=== PATIENT | female | born 1960 | race Caucasian/White ===

== ENCOUNTER → 2017-03-06 | Outpatient (CLI) | payer BC ==
--- NOTE | 2017-03-09 13:10 | MM ---
Reason for exam: screening (asymptomatic). Last mammogram was performed 1 year ago. History: Patient is postmenopausal. Stereotactic core biopsy of the left breast, August 31, 2000. Physical Findings: A clinical breast exam by your physician is recommended on an annual basis and results should be correlated with mammographic findings. MG Screening Mammo w CAD Bilateral CC and MLO view(s) were taken. Prior study comparison: March 07, 2016, bilateral MG screening mammo w CAD. March 02, 2015, bilateral MG screening mammo w CAD. November 11, 2012, bilateral digital screening mammo w/CAD. There are scattered fibroglandular densities. No significant changes when compared with prior studies. ASSESSMENT: Benign, BI-RAD 2 RECOMMENDATION: Routine screening mammogram of both breasts in 1 year.
== END | disposition home or self-care (01) ==
LOC: RADMAMWWP 10:46
PROVIDERS: ATTEND Family Medicine
DX: Z12.31 Encounter for screening mammogram for malignant neoplasm of breast (principal)

== ENCOUNTER → 2018-05-24 | Outpatient (CLI) | payer BC ==
--- NOTE | 2018-05-26 10:50 | MM ---
Reason for exam: screening (asymptomatic). Last mammogram was performed 1 year and 3 months ago. History: Patient is postmenopausal. Stereotactic core biopsy of the left breast, August 31, 2000. Physical Findings: A clinical breast exam by your physician is recommended on an annual basis and results should be correlated with mammographic findings. MG Screening Mammo w CAD Bilateral CC and MLO view(s) were taken. Prior study comparison: March 06, 2017, bilateral MG screening mammo w CAD. March 07, 2016, bilateral MG screening mammo w CAD. The breast tissue is heterogeneously dense. This may lower the sensitivity of mammography. Left biopsy marker noted. ASSESSMENT: Negative, BI-RAD 1 RECOMMENDATION: Routine screening mammogram of both breasts in 1 year.
== END | disposition home or self-care (01) ==
LOC: RADMAMWWP 15:05
PROVIDERS: ATTEND Family Medicine
DX: Z12.31 Encounter for screening mammogram for malignant neoplasm of breast (principal)
CPT/HCPCS: 77067

== ENCOUNTER 2018-09-05 08:11 | Emergency (ER) | payer BC ==
--- NOTE | 2018-09-05 08:42 | ED ---
Recheck HPI - General Chief Complaint: Recheck/Abnormal Lab/Rx Stated Complaint: lt side jaw swelling Time Seen by Provider: 09/05/18 08:23 Source: patient, RN notes reviewed Mode of arrival: ambulatory Limitations: no limitations - History of Present Illness Initial Comments: Patient is a 58-year-old female with chief complaint of left jaw swelling. Patient reports that she has no pain. She denies any trouble breathing. She denies any swelling to her lips or tongue. Patient reports that it occurred when she was eating breakfast and started to notice that the left side of her jaw into her ear was swollen. She reports this never happened before. Patient denies fevers or chills. She denies any purulent saliva or drainage. Patient states that she's had no recent viral infections. She states that she has no history of high blood pressure. She describes emergency department quite hypertensive. She states she just felt anxious at that time. - Related Data Home Medications Medication Instructions Recorded Confirmed Simvastatin [Zocor] 20 mg PO HS 03/07/15 03/09/15 metFORMIN HCL [Glucophage] 500 mg PO BID 03/07/15 03/09/15 Previous Rx's Medication Instructions Recorded Amoxic-Pot Clav 875-125Mg 1 tab PO Q12HR #20 tablet 09/05/18 [Augmentin 875-125] methylPREDNISolone Dose Pack 4 mg PO DIRECTED #21 package 09/05/18 [Medrol Dose Pack] Allergies Allergy/AdvReac Type Severity Reaction Status Date / Time No Known Allergies Allergy Verified 09/05/18 08:14 Review of Systems ROS Statement: Those systems with pertinent positive or pertinent negative responses have been documented in the HPI. ROS Other: All systems not noted in ROS Statement are negative. Past Medical History Past Medical History: Diabetes Mellitus, Hyperlipidemia Additional Past Medical History / Comment(s): PT STATES THAT SHE HAS BEEN EPIGASTRIC PAIN OFF AND ON FOR ABOUT 8 MONTHS. History of Any Multi-Drug Resistant Organisms: None Reported Past Surgical History: Hysterectomy Additional Past Surgical History / Comment(s): EGD. ORAL CYST REMOVED Past Anesthesia/Blood Transfusion Reactions: No Reported Reaction Past Psychological History: No Psychological Hx Reported Smoking Status: Current every day smoker Past Alcohol Use History: None Reported - Past Family History Mother Family Medical History: Cancer Brother(s) Family Medical History: Cancer Sister(s) Family Medical History: Cancer General Exam - General Exam Comments Initial Comments: 58-year-old female. Alert and oriented 3. Patient appears in no acute distress. Limitations: no limitations General appearance: alert, in no apparent distress Head exam: Present: atraumatic, normocephalic, normal inspection Eye exam: Present: normal appearance, PERRL, EOMI. Absent: scleral icterus, conjunctival injection, periorbital swelling ENT exam: Present: normal exam, normal oropharynx, mucous membranes moist, other (Patient is tender and swollen over the left parotid gland.) Neck exam: Present: normal inspection. Absent: tenderness, meningismus, lymphadenopathy Respiratory exam: Present: normal lung sounds bilaterally Cardiovascular Exam: Present: regular rate, normal rhythm, normal heart sounds. Absent: systolic murmur, diastolic murmur, rubs, gallop, clicks GI/Abdominal exam: Present: soft, normal bowel sounds. Absent: distended, tenderness, guarding, rebound, rigid Extremities exam: Present: normal inspection, full ROM, normal capillary refill. Absent: tenderness, pedal edema, joint swelling, calf tenderness Back exam: Present: normal inspection Neurological exam: Present: alert, oriented X3, CN II-XII intact Psychiatric exam: Present: normal affect, normal mood Course Vital Signs 09/05/18 09/05/18 09/05/18 08:13 09:02 09:29 Temperature 98.1 F Pulse Rate 85 74 64 Respiratory 18 18 18 Rate Blood Pressure 209/97 195/86 174/79 O2 Sat by Pulse 98 98 99 Oximetry 09/05/18 12:14 Temperature 98.6 F Pulse Rate 60 Respiratory 16 Rate Blood Pressure 197/78 O2 Sat by Pulse 100 Oximetry Medical Decision Making - Medical Decision Making Patient is a 58-year-old female who presents today with acute swelling over the left parotid gland. No palpable stone or duct within the Stensen's duct. Patient has no fever. Patient's blood pressure is elevated. She states that she has no pain at this time. Patient's CT did show evidence of enlarged bilateral parotid ducts. No significant stone appreciated. I do feel like I can see one stone on the left side. Patient's labwork obtained. Normal white blood cell count. She does have a significant amylase elevation consistent with. Clay. Patient's case discussed with Dr. Lees who recommended putting the Patient on Augmentin and steroids. He will follow up with her out patiently in the office. In the meantime Patient should have frequent sialagogues. Patient understands treatment plan will comply. Return parameters were discussed. - Lab Data Result diagrams: 09/05/18 10:40 09/05/18 10:40 Lab Results 09/05/18 09/05/18 Range/Units 10:40 10:40 WBC 7.5 (3.8-10.6) k/uL RBC 5.15 (3.80-5.40) m/uL Hgb 14.3 (11.4-16.0) gm/dL Hct 44.4 (34.0-46.0) % MCV 86.2 (80.0-100.0) fL MCH 27.8 (25.0-35.0) pg MCHC 32.3 (31.0-37.0) g/dL RDW 13.2 (11.5-15.5) % Plt Count 235 (150-450) k/uL Neutrophils % 77 % Lymphocytes % 15 % Monocytes % 6 % Eosinophils % 1 % Basophils % 0 % Neutrophils # 5.8 (1.3-7.7) k/uL Lymphocytes # 1.2 (1.0-4.8) k/uL Monocytes # 0.4 (0-1.0) k/uL Eosinophils # 0.1 (0-0.7) k/uL Basophils # 0.0 (0-0.2) k/uL Sodium 140 (137-145) mmol/L Potassium 4.3 (3.5-5.1) mmol/L Chloride 105 (98-107) mmol/L Carbon Dioxide 28 (22-30) mmol/L Anion Gap 7 mmol/L BUN 14 (7-17) mg/dL Creatinine 0.57 (0.52-1.04) mg/dL Est GFR (CKD-EPI)AfAm >90 (>60 ml/min/1.73 sqM) Est GFR (CKD-EPI)NonAf >90 (>60 ml/min/1.73 sqM) Glucose 200 H (74-99) mg/dL Calcium 9.6 (8.4-10.2) mg/dL Amylase 874 H* (30-110) U/L Lipase 36 (23-300) U/L - Radiology Data Radiology results: report reviewed Enlargement of the left parotid gland and possibly of the right parotid gland. Please correlate for mumps. Chronic sinus mucosal disease. Disposition Clinical Impression: Parotitis Disposition: HOME SELF-CARE Condition: Good Instructions: Sialoadenitis (ED) Additional Instructions: Patient advised to follow-up with Dr. Lees tomorrow. Patient should be sucking on throat lozenges. Taken to increase saliva production. Return to emergency department if any alarming signs or symptoms occur. Prescriptions: Amoxic-Pot Clav 875-125Mg [Augmentin 875-125] 1 tab PO Q12HR #20 tablet methylPREDNISolone Dose Pack [Medrol Dose Pack] 4 mg PO DIRECTED #21 package Is patient prescribed a controlled substance at d/c from ED?: No Referrals: Freddie Parks DO [Primary Care Provider] - 1-2 days Abdulaziz Hardin DO [Doctor of Osteopathic Medicine] - 1-2 days Time of Disposition: 11:54
--- NOTE | 2018-09-05 09:21 | CT ---
EXAMINATION TYPE: CT facial bones wo con DATE OF EXAM: 09/05/2018 COMPARISON: None. HISTORY: Lt side jaw swelling CT DLP: 351.2 mGycm Automated exposure control for dose reduction was used. TECHNIQUE: CT scan of the sinuses is performed without contrast, axial images are obtained, coronal r eformatted images are also reviewed. FINDINGS: There is enlargement of the left parotid gland. There is no significant subcutaneous fat st randing adjacent to the parotid gland. The right parotid gland may also be slightly swollen. The subm andibular glands are unremarkable. The parapharyngeal, oropharyngeal and laryngeal soft tissues are normal. There is a 1 cm retention cyst or polyp involving the right maxillary sinus. There is mild mucosal th ickening involving the left maxillary sinus. The remainder the paranasal sinuses and mastoids are soraya ar. Both zygomatic arches are intact. The pterygoid plates are intact. The schultz of the orbits and maxill josefina sinus sinuses are intact. The mandible has a normal appearance. IMPRESSION: 1. ENLARGEMENT OF THE LEFT PAROTID GLAND AND POSSIBLY OF THE RIGHT PAROTID GLAND. PLEASE CORRELATE FO R MONTHS. 2. CHRONIC SINUS MUCOSAL DISEASE.
[2018-09-05 10:54] LABS: Basophils % (A) 0 %; Eosinophils # (A) 0.1 k/uL (0-0.7); Eosinophils % (A) 1 %; HCT 44.4 % (34.0-46.0); HGB 14.3 gm/dL (11.4-16.0); Lymphocytes # (A) 1.2 k/uL (1.0-4.8); Lymphocytes % (A) 15 %; MCH 27.8 pg (25.0-35.0); MCHC 32.3 g/dL (31.0-37.0); MCV 86.2 fL (80.0-100.0); Mean Platelet Volume 6.6; Monocytes # (A) 0.4 k/uL (0-1.0); Monocytes % (A) 6 %; Neutrophils # (A) 5.8 k/uL (1.3-7.7); Neutrophils % (A) 77 %; Platelet Count 235 k/uL (150-450); RBC 5.15 m/uL (3.80-5.40); RDW 13.2 % (11.5-15.5); WBC 7.5 k/uL (3.8-10.6)
[2018-09-05 11:07] LABS: Anion Gap 7 mmol/L; Blood Urea Nitrogen 14 mg/dL (7-17); Calcium 9.6 mg/dL (8.4-10.2); Carbon Dioxide 28 mmol/L (22-30); Chloride 105 mmol/L (98-107); Glucose 200 mg/dL (74-99); Lipase 36 U/L (23-300); Potassium 4.3 mmol/L (3.5-5.1); Sodium 140 mmol/L (137-145)
[2018-09-05 11:24] LABS: Amylase 874 U/L (30-110)
[2018-09-05] MEDS ORDERED: predniSONE 50 MG TAB PO STA (11:53)
[2018-09-05] MEDS ORDERED: AMOXIC-POT CLAV 875MG STARTER 2 EACH TABLET PO STA (11:53)
[2018-09-05 12:16] VITALS: BP 197/78; PULSE 60; RESP 16; TEMP 98.6
== END 2018-09-05 12:14 | disposition home or self-care (01) ==
LOC: EC 08:11
DX: K11.20 Sialoadenitis, unspecified (principal); R03.0 Elevated blood-pressure reading, without diagnosis of hypertension; E11.9 Type 2 diabetes mellitus without complications; E78.5 Hyperlipidemia, unspecified; F17.200 Nicotine dependence, unspecified, uncomplicated; Z98.890 Other specified postprocedural states; Z79.84 Long term (current) use of oral hypoglycemic drugs; Z79.899 Other long term (current) drug therapy
CPT/HCPCS: 99284; 36415; 80048; 82150; 83690; 85025; 70486; J7512

== ENCOUNTER → 2019-06-27 | Outpatient (CLI) | payer BC ==
--- NOTE | 2019-06-28 13:57 | MM ---
Reason for exam: screening (asymptomatic). Last mammogram was performed 1 year and 1 month ago. History: Patient is postmenopausal. Stereotactic core biopsy of the left breast, August 31, 2000. Took hormonal contraceptives for 5 years. Physical Findings: A clinical breast exam by your physician is recommended on an annual basis and results should be correlated with mammographic findings. MG Screening Mammo w CAD Bilateral CC and MLO view(s) were taken. Prior study comparison: May 24, 2018, bilateral MG screening mammo w CAD. March 06, 2017, bilateral MG screening mammo w CAD. The breast tissue is heterogeneously dense. This may lower the sensitivity of mammography. Previous mammotome biopsy on left breast. No discrete abnormality. ASSESSMENT: Negative, BI-RAD 1 RECOMMENDATION: Routine screening mammogram of both breasts in 1 year.
== END | disposition home or self-care (01) ==
LOC: RADMAMWWP 14:54
PROVIDERS: ATTEND Family Medicine
DX: Z12.31 Encounter for screening mammogram for malignant neoplasm of breast (principal)
CPT/HCPCS: 77067

== ENCOUNTER 2019-12-27 20:38 | Emergency (ER) | payer BC ==
[2019-12-27 20:54] VITALS: RESP 18; TEMP 98.3
[2019-12-27] MEDS ORDERED: SODIUM CHLORIDE 0.9% 1,000 ML IV STA (21:01)
[2019-12-27] MEDS ORDERED: LABETALOL 5 MG/ML VIAL MDV IVP STA (21:01)
--- NOTE | 2019-12-27 21:01 | ED ---
Recheck HPI - General Chief Complaint: Recheck/Abnormal Lab/Rx Stated Complaint: elevated BP Time Seen by Provider: 12/27/19 20:48 Source: patient, RN notes reviewed, old records reviewed Mode of arrival: ambulatory Limitations: no limitations - History of Present Illness Complaint: other -: unknown Returns Today for: other Symptoms Since Prior Visit: no new symptoms Context: planned re-check Associated Symptoms: none - Related Data Home Medications Medication Instructions Recorded Confirmed Simvastatin [Zocor] 20 mg PO HS 03/07/15 03/09/15 metFORMIN HCL [Glucophage] 500 mg PO BID 03/07/15 03/09/15 Previous Rx's Medication Instructions Recorded Amoxic-Pot Clav 875-125Mg 1 tab PO Q12HR #20 tablet 09/05/18 [Augmentin 875-125] methylPREDNISolone Dose Pack 4 mg PO DIRECTED #21 package 09/05/18 [Medrol Dose Pack] Allergies Allergy/AdvReac Type Severity Reaction Status Date / Time No Known Allergies Allergy Verified 12/27/19 20:55 Review of Systems ROS Statement: Those systems with pertinent positive or pertinent negative responses have been documented in the HPI. ROS Other: All systems not noted in ROS Statement are negative. Past Medical History Past Medical History: Diabetes Mellitus, Hyperlipidemia Additional Past Medical History / Comment(s): PT STATES THAT SHE HAS BEEN EPIGASTRIC PAIN OFF AND ON FOR ABOUT 8 MONTHS. History of Any Multi-Drug Resistant Organisms: None Reported Past Surgical History: Hysterectomy Additional Past Surgical History / Comment(s): EGD. ORAL CYST REMOVED Past Anesthesia/Blood Transfusion Reactions: No Reported Reaction Past Psychological History: No Psychological Hx Reported Smoking Status: Current every day smoker Past Alcohol Use History: None Reported Past Drug Use History: None Reported - Past Family History Mother Family Medical History: Cancer Brother(s) Family Medical History: Cancer Sister(s) Family Medical History: Cancer General Exam Limitations: no limitations General appearance: alert, in no apparent distress Head exam: Present: atraumatic, normocephalic, normal inspection Eye exam: Present: normal appearance, PERRL, EOMI. Absent: scleral icterus, conjunctival injection, periorbital swelling ENT exam: Present: normal exam, mucous membranes moist Neck exam: Present: normal inspection. Absent: tenderness, meningismus, lymphadenopathy Respiratory exam: Present: normal lung sounds bilaterally. Absent: respiratory distress, wheezes, rales, rhonchi, stridor Cardiovascular Exam: Present: regular rate, normal rhythm, normal heart sounds. Absent: systolic murmur, diastolic murmur, rubs, gallop, clicks GI/Abdominal exam: Present: soft, normal bowel sounds. Absent: distended, tenderness, guarding, rebound, rigid Extremities exam: Present: normal inspection, full ROM, normal capillary refill. Absent: tenderness, pedal edema, joint swelling, calf tenderness Back exam: Present: normal inspection Neurological exam: Present: alert, oriented X3, CN II-XII intact Psychiatric exam: Present: normal affect, normal mood Skin exam: Present: warm, dry, intact, normal color. Absent: rash Course Vital Signs 12/27/19 12/27/19 12/27/19 20:49 21:40 21:50 Temperature 98.3 F Pulse Rate 79 68 70 Respiratory 18 18 18 Rate Blood Pressure 211/100 192/100 149/103 O2 Sat by Pulse 99 96 97 Oximetry 12/27/19 22:03 Temperature Pulse Rate 66 Respiratory 18 Rate Blood Pressure 149/74 O2 Sat by Pulse 97 Oximetry Medical Decision Making - Lab Data Result diagrams: 12/27/19 21:33 12/27/19 21:33 Lab Results 12/27/19 12/27/19 12/27/19 Range/Units 21:33 21:33 21:33 WBC 6.7 (3.8-10.6) k/uL RBC 5.04 (3.80-5.40) m/uL Hgb 13.9 (11.4-16.0) gm/dL Hct 41.9 (34.0-46.0) % MCV 83.2 (80.0-100.0) fL MCH 27.6 (25.0-35.0) pg MCHC 33.1 (31.0-37.0) g/dL RDW 13.3 (11.5-15.5) % Plt Count 256 (150-450) k/uL Neutrophils % 61 % Lymphocytes % 27 % Monocytes % 6 % Eosinophils % 2 % Basophils % 0 % Neutrophils # 4.1 (1.3-7.7) k/uL Lymphocytes # 1.8 (1.0-4.8) k/uL Monocytes # 0.4 (0-1.0) k/uL Eosinophils # 0.2 (0-0.7) k/uL Basophils # 0.0 (0-0.2) k/uL Sodium 138 (137-145) mmol/L Potassium 3.9 (3.5-5.1) mmol/L Chloride 103 (98-107) mmol/L Carbon Dioxide 29 (22-30) mmol/L Anion Gap 6 mmol/L BUN 15 (7-17) mg/dL Creatinine 0.51 L (0.52-1.04) mg/dL Est GFR (CKD-EPI)AfAm >90 (>60 ml/min/1.73 sqM) Est GFR (CKD-EPI)NonAf >90 (>60 ml/min/1.73 sqM) Glucose 131 H (74-99) mg/dL Calcium 9.5 (8.4-10.2) mg/dL Phosphorus 4.3 (2.5-4.5) mg/dL Magnesium 1.8 (1.6-2.3) mg/dL Total Bilirubin 0.5 (0.2-1.3) mg/dL AST 19 (14-36) U/L ALT 10 (4-34) U/L Alkaline Phosphatase 105 (38-126) U/L Troponin I <0.012 (0.000-0.034) ng/mL Total Protein 7.2 (6.3-8.2) g/dL Albumin 4.5 (3.5-5.0) g/dL - EKG Data -: EKG Interpreted by Me (EKG shows sinus a rate of 71, MT 134, QRS 80, QTC 441) Disposition Clinical Impression: Hypertension Disposition: HOME SELF-CARE Condition: Good Instructions (If sedation given, give patient instructions): Hypertension (ED) Is patient prescribed a controlled substance at d/c from ED?: No Referrals: Freddie Parks DO [Primary Care Provider] - 1-2 days
[2019-12-27 21:46] LABS: Basophils % (A) 0 %; Eosinophils # (A) 0.2 k/uL (0-0.7); Eosinophils % (A) 2 %; HCT 41.9 % (34.0-46.0); HGB 13.9 gm/dL (11.4-16.0); Lymphocytes # (A) 1.8 k/uL (1.0-4.8); Lymphocytes % (A) 27 %; MCH 27.6 pg (25.0-35.0); MCHC 33.1 g/dL (31.0-37.0); MCV 83.2 fL (80.0-100.0); Mean Platelet Volume 7.1; Monocytes # (A) 0.4 k/uL (0-1.0); Monocytes % (A) 6 %; Neutrophils # (A) 4.1 k/uL (1.3-7.7); Neutrophils % (A) 61 %; Platelet Count 256 k/uL (150-450); RBC 5.04 m/uL (3.80-5.40); RDW 13.3 % (11.5-15.5); WBC 6.7 k/uL (3.8-10.6)
[2019-12-27 21:54] LABS: ALT 10 U/L (4-34); AST 19 U/L (14-36); African American GFR (CKD) >90 (>60 ml/min/1.73 sqM); Albumin 4.5 g/dL (3.5-5.0); Alkaline Phosphatase 105 U/L (38-126); Anion Gap 6 mmol/L; Blood Urea Nitrogen 15 mg/dL (7-17); Calcium 9.5 mg/dL (8.4-10.2); Carbon Dioxide 29 mmol/L (22-30); Chloride 103 mmol/L (98-107); Glucose 131 mg/dL (74-99); Magnesium 1.8 mg/dL (1.6-2.3); Non-African American GFR(CKD) >90 (>60 ml/min/1.73 sqM); Phosphorus 4.3 mg/dL (2.5-4.5); Potassium 3.9 mmol/L (3.5-5.1); Sodium 138 mmol/L (137-145); Total Bilirubin 0.5 mg/dL (0.2-1.3); Total Protein 7.2 g/dL (6.3-8.2)
[2019-12-27] MEDS ORDERED: LISINOPRIL 10 MG TAB PO STA (22:23)
[2019-12-27 22:37] VITALS: BP 164/73; PULSE 68
== END 2019-12-27 22:38 | disposition home or self-care (01) ==
LOC: EC 20:38
DX: I10 Essential (primary) hypertension (principal); E11.9 Type 2 diabetes mellitus without complications; E78.5 Hyperlipidemia, unspecified; F17.200 Nicotine dependence, unspecified, uncomplicated; Z79.84 Long term (current) use of oral hypoglycemic drugs; Z79.899 Other long term (current) drug therapy
CPT/HCPCS: 36415; 80053; 83735; 84100; 84443; 84484; 85025; 93005; 96361; 96374; 99284

== ENCOUNTER 2019-12-29 19:33 | Inpatient (IN) | payer BC ==
[2019-12-29] MEDS ORDERED: SODIUM CHLORIDE 0.9% 500 ML 500 ML IV STA (19:54)
--- NOTE | 2019-12-29 19:57 | ED ---
General Adult HPI - General Chief complaint: Chest Pain Stated complaint: chest pain Time Seen by Provider: 12/29/19 19:47 Source: patient Mode of arrival: ambulatory Limitations: no limitations - History of Present Illness Initial comments: Dictation was produced using [employer] dictation software. please excuse any grammatical, word or spelling errors. Chief Complaint: 59-year-old female with past medical history of hypertension diabetes and dyslipidemia presents with chest pain History of Present Illness: 59-year-old female she presents today with chief complaint of chest pain. Patient states that her pain is localized to the clements bsternal area with radiation to the back. She also complained of some mild numbness to the left upper extremity. She states that the pain is sort of dull with radiation to the back. She does report that it feels as though it's going on her left upper extremity. Denies any numbness tingling to her extremities at the moment. Patient is a history of blood pressure she was recently seen in the emergency department for elevated blood pressure. At that time she did not have any pain. She was given prescription for lisinopril and went to fill it. Her first doses today. Denies any shortness of breath. The ROS documented in this emergency department record has been reviewed and confirmed by me. Those systems with pertinent positive or negative responses have been documented in the HPI. All other systems are other negative and/or noncontributory. PHYSICAL EXAM: General Impression: Alert and oriented x3, not in acute distress HEENT: Normocephalic atraumatic, extra-ocular movements intact, pupils equal and reactive to light bilaterally, mucous membranes moist. Cardiovascular: Heart regular rate and rhythm, S1&S2 audible, no murmurs, rubs or gallops Chest: Lungs clear to auscultation bilaterally, no rhonchi, no wheeze, no rales Abdomen: Bowel sounds present, abdomen soft, non-tender, non-distended, no organomegaly Musculoskeletal: Pulses present and equal in all extremities, no peripheral edema Motor: no focal deficits noted Neurological: CN II-XII grossly intact, no focal motor or sensory deficits noted Skin: Intact with no visualized rashes Psych: Normal affect and mood ED course: 59-year-old female with a chief complaint of chest pain. As upon arrival shows blood pressure 207/103. Clinical presentation concerning for acute aortic dissection. Laboratory evaluation obtained. CBC, coag panel, metabolic panel is obtained showing no acute processes. Cardiac enzymes negative. Chest x-ray shows no acute processes. Pending CT thoracic aorta. Patient care sats Dr. Louie for follow-up of thoracic aorta CT and final disposition. EKG interpretation: Ventricular rate 81, normal sinus rhythm,. 126, QRS 84, QTc 441. No [place] prolongation, no QTC prolongation, no ST or T-wave changes noted. EKG compared to December 27 2019 showing no changes. Overall, this EKG is unremarkable - Related Data Home Medications Medication Instructions Recorded Confirmed Simvastatin [Zocor] 20 mg PO HS 03/07/15 03/09/15 metFORMIN HCL [Glucophage] 500 mg PO BID 03/07/15 03/09/15 Previous Rx's Medication Instructions Recorded Amoxic-Pot Clav 875-125Mg 1 tab PO Q12HR #20 tablet 09/05/18 [Augmentin 875-125] methylPREDNISolone Dose Pack 4 mg PO DIRECTED #21 package 09/05/18 [Medrol Dose Pack] Lisinopril [Prinivil] 10 mg PO DAILY #30 tab 12/27/19 Allergies Allergy/AdvReac Type Severity Reaction Status Date / Time No Known Allergies Allergy Verified 12/29/19 19:38 Review of Systems ROS Statement: Those systems with pertinent positive or pertinent negative responses have been documented in the HPI. ROS Other: All systems not noted in ROS Statement are negative. Past Medical History Past Medical History: Diabetes Mellitus, Hyperlipidemia Additional Past Medical History / Comment(s): PT STATES THAT SHE HAS BEEN EPIGASTRIC PAIN OFF AND ON FOR ABOUT 8 MONTHS. History of Any Multi-Drug Resistant Organisms: None Reported Past Surgical History: Hysterectomy Additional Past Surgical History / Comment(s): EGD. ORAL CYST REMOVED Past Anesthesia/Blood Transfusion Reactions: No Reported Reaction Past Psychological History: No Psychological Hx Reported Smoking Status: Current every day smoker Past Alcohol Use History: None Reported Past Drug Use History: None Reported - Past Family History Mother Family Medical History: Cancer Brother(s) Family Medical History: Cancer Sister(s) Family Medical History: Cancer General Exam Limitations: no limitations Course Vital Signs 12/29/19 19:34 Temperature 98.1 F Pulse Rate 86 Respiratory 18 Rate Blood Pressure 207/103 O2 Sat by Pulse 99 Oximetry Medical Decision Making - Lab Data Result diagrams: 12/29/19 19:50 12/29/19 19:50 Lab Results 12/29/19 12/29/19 12/29/19 Range/Units 19:50 19:50 19:50 WBC 6.3 (3.8-10.6) k/uL RBC 4.84 (3.80-5.40) m/uL Hgb 13.4 (11.4-16.0) gm/dL Hct 40.9 (34.0-46.0) % MCV 84.4 (80.0-100.0) fL MCH 27.8 (25.0-35.0) pg MCHC 32.9 (31.0-37.0) g/dL RDW 13.5 (11.5-15.5) % Plt Count 218 (150-450) k/uL Neutrophils % 62 % Lymphocytes % 27 % Monocytes % 7 % Eosinophils % 2 % Basophils % 0 % Neutrophils # 3.9 (1.3-7.7) k/uL Lymphocytes # 1.7 (1.0-4.8) k/uL Monocytes # 0.4 (0-1.0) k/uL Eosinophils # 0.1 (0-0.7) k/uL Basophils # 0.0 (0-0.2) k/uL PT 9.5 (9.0-12.0) sec INR 0.9 (<1.2) APTT 23.7 (22.0-30.0) sec Sodium 140 (137-145) mmol/L Potassium 3.9 (3.5-5.1) mmol/L Chloride 105 (98-107) mmol/L Carbon Dioxide 27 (22-30) mmol/L Anion Gap 8 mmol/L BUN 17 (7-17) mg/dL Creatinine 0.66 (0.52-1.04) mg/dL Est GFR (CKD-EPI)AfAm >90 (>60 ml/min/1.73 sqM) Est GFR (CKD-EPI)NonAf >90 (>60 ml/min/1.73 sqM) Glucose 137 H (74-99) mg/dL Calcium 9.2 (8.4-10.2) mg/dL Magnesium 1.7 (1.6-2.3) mg/dL Total Bilirubin 0.3 (0.2-1.3) mg/dL AST 20 (14-36) U/L ALT 11 (4-34) U/L Alkaline Phosphatase 96 (38-126) U/L Troponin I (0.000-0.034) ng/mL Total Protein 7.1 (6.3-8.2) g/dL Albumin 4.3 (3.5-5.0) g/dL Lipase 211 (23-300) U/L 12/29/19 Range/Units 19:50 WBC (3.8-10.6) k/uL RBC (3.80-5.40) m/uL Hgb (11.4-16.0) gm/dL Hct (34.0-46.0) % MCV (80.0-100.0) fL MCH (25.0-35.0) pg MCHC (31.0-37.0) g/dL RDW (11.5-15.5) % Plt Count (150-450) k/uL Neutrophils % % Lymphocytes % % Monocytes % % Eosinophils % % Basophils % % Neutrophils # (1.3-7.7) k/uL Lymphocytes # (1.0-4.8) k/uL Monocytes # (0-1.0) k/uL Eosinophils # (0-0.7) k/uL Basophils # (0-0.2) k/uL PT (9.0-12.0) sec INR (<1.2) APTT (22.0-30.0) sec Sodium (137-145) mmol/L Potassium (3.5-5.1) mmol/L Chloride (98-107) mmol/L Carbon Dioxide (22-30) mmol/L Anion Gap mmol/L BUN (7-17) mg/dL Creatinine (0.52-1.04) mg/dL Est GFR (CKD-EPI)AfAm (>60 ml/min/1.73 sqM) Est GFR (CKD-EPI)NonAf (>60 ml/min/1.73 sqM) Glucose (74-99) mg/dL Calcium (8.4-10.2) mg/dL Magnesium (1.6-2.3) mg/dL Total Bilirubin (0.2-1.3) mg/dL AST (14-36) U/L ALT (4-34) U/L Alkaline Phosphatase (38-126) U/L Troponin I <0.012 (0.000-0.034) ng/mL Total Protein (6.3-8.2) g/dL Albumin (3.5-5.0) g/dL Lipase (23-300) U/L Disposition Referrals: Freddie Parks DO [Primary Care Provider] - 1-2 days
[2019-12-29 20:05] LABS: Basophils % (A) 0 %; Eosinophils # (A) 0.1 k/uL (0-0.7); Eosinophils % (A) 2 %; HCT 40.9 % (34.0-46.0); HGB 13.4 gm/dL (11.4-16.0); Lymphocytes # (A) 1.7 k/uL (1.0-4.8); Lymphocytes % (A) 27 %; MCH 27.8 pg (25.0-35.0); MCHC 32.9 g/dL (31.0-37.0); MCV 84.4 fL (80.0-100.0); Mean Platelet Volume 7.1; Monocytes # (A) 0.4 k/uL (0-1.0); Monocytes % (A) 7 %; Neutrophils # (A) 3.9 k/uL (1.3-7.7); Neutrophils % (A) 62 %; Platelet Count 218 k/uL (150-450); RBC 4.84 m/uL (3.80-5.40); RDW 13.5 % (11.5-15.5); WBC 6.3 k/uL (3.8-10.6)
[2019-12-29 20:14] LABS: ALT 11 U/L (4-34); AST 20 U/L (14-36); African American GFR (CKD) >90 (>60 ml/min/1.73 sqM); Albumin 4.3 g/dL (3.5-5.0); Alkaline Phosphatase 96 U/L (38-126); Anion Gap 8 mmol/L; Blood Urea Nitrogen 17 mg/dL (7-17); Calcium 9.2 mg/dL (8.4-10.2); Carbon Dioxide 27 mmol/L (22-30); Chloride 105 mmol/L (98-107); Glucose 137 mg/dL (74-99); Magnesium 1.7 mg/dL (1.6-2.3); Non-African American GFR(CKD) >90 (>60 ml/min/1.73 sqM); Potassium 3.9 mmol/L (3.5-5.1); Sodium 140 mmol/L (137-145); Total Bilirubin 0.3 mg/dL (0.2-1.3); Total Protein 7.1 g/dL (6.3-8.2)
[2019-12-29 20:24] LABS: INR 0.9 (<1.2); Partial Thromboplastin Time 23.7 sec (22.0-30.0); Prothrombin Time 9.5 sec (9.0-12.0)
--- NOTE | 2019-12-29 20:58 | XR ---
EXAMINATION TYPE: XR chest 2V DATE OF EXAM: 12/29/2019 COMPARISON: NONE HISTORY: Epigastric pain TECHNIQUE: FINDINGS: Heart and mediastinum are normal. Lungs are clear. Diaphragm is normal. There no hilar mass es. Bony thorax is intact. There are chest leads. IMPRESSION: Normal chest. Normal heart.
[2019-12-29] MEDS ORDERED: LABETALOL 5 MG/ML VIAL MDV IVP STA (21:11)
[2019-12-29] MEDS ORDERED: ASPIRIN 81 MG PO STA (21:11)
--- NOTE | 2019-12-29 21:16 | CT ---
EXAMINATION TYPE: CT angio thor/abd pel aorta DATE OF EXAM: 12/29/2019 COMPARISON: None HISTORY: Upper back pain and hypertension CT DLP: 1571.1 mGycm Automated exposure control for dose reduction was used. CONTRAST: Performed without and with IV Contrast, patient injected with 100 mL of Isovue 370. There are 3-D post processed images. Multiple axial sections were obtained from the thoracic inlet to the floor the pelvis without and subsequently with intravenous contrast. There are 3-D post processe d images. FINDINGS: The lungs are clear of consolidation. There is no pleural effusion. Heart size is normal. There is no pericardial effusion. There is no mediastinal adenopathy. There are no hilar masses. Thoracic aorta is atheromatous. There is no thoracic aortic aneurysm or dissection. I see no filling defects in the pulmonary arterie s. There is patency of the celiac artery and superior mesenteric artery. There is atherosclerotic variab le plaque formation in the abdominal aorta and its branches. There is bilateral arterial flow in the renal arteries. There is arterial flow in the iliac and femoral arteries bilaterally. There are areas of stenosis up to 50% in the left common iliac artery. I see no evidence of abdominal aortic aneurys m or dissection. There is plaque formation and estimated 85% stenosis of the proximal left superficia l femoral artery. There is also significant plaque formation at the origin of the right superficial f emoral artery which is possibly occluded. Liver spleen pancreas gallbladder stomach appear normal. Bile ducts are not dilated. There is no adrenal mass. Kidneys show satisfactory contrast opacification. There is no hydronephrosi s. There is no retroperitoneal adenopathy. Bladder distends smoothly. There is no sign of a pelvic ma ss. There is no mesenteric edema. There is no sign of a bowel obstruction. Appendix appears normal. I see no bony destructive process. There is sigmoid diverticulosis without diverticulitis. IMPRESSION: Atherosclerotic vascular disease. Severe stenosis at the origins of both superficial femoral arteries . Extent of the disease is not evaluated. No evidence of thoracic or abdominal aortic aneurysm or dis section. No evidence of pulmonary embolism. 50% stenosis origin of the left common iliac artery.
[2019-12-29] MEDS ORDERED: NITROGLYCERIN SL TABS 0.4 MG TAB SUBLINGUAL PRN (21:30)
[2019-12-30 03:51] LABS: Cholesterol 133 mg/dL (<200); HDL Cholesterol 49 mg/dL (40-60); LDL Cholesterol,Calculated 70 mg/dL (0-99); Triglycerides 69 mg/dL (<150)
[2019-12-30 06:09] LABS: Glucose,Whole Blood 111 mg/dL (75-99)
--- NOTE | 2019-12-30 08:55 | P.CRDCN ---
History of Present Illness Consult date: 12/30/19 Chief complaint: Chest pain History of present illness: This is a very pleasant 59-year-old female patient with a past medical history significant for diabetes, hypertension, dyslipidemia, and family history of coronary artery disease as well as history of smoking presented to the emergency room complaining of chest discomfort. She was in her usual state of health until yesterday when she was at work and started experiencing pain in the back of her neck associated with the pain over the left upper chest. She describes the pain in the chest as dull, without any radiation to the arms, and without any associated symptoms of shortness of breath, sweating, nausea, or syncope. She continues to be chest pain free since she was admitted to the hospital. No chest pain last night. The EKG showed sinus rhythm without any significant ST or T-wave abnormalities. The cardiac enzymes were checked and came in to be unremarkable with a chest x-ray did not show any acute abnormalities. She underwent a CTA of the chest and abdomen and that revealed evidence of peripheral arterial disease. No aortic dissection or aneurysm. Past Medical History Past Medical History: Diabetes Mellitus, Hyperlipidemia Additional Past Medical History / Comment(s): PT STATES THAT SHE HAS BEEN EPIGASTRIC PAIN OFF AND ON FOR ABOUT 8 MONTHS. History of Any Multi-Drug Resistant Organisms: None Reported Past Surgical History: Hysterectomy Additional Past Surgical History / Comment(s): ID chip in left breast following biopsy. Past Anesthesia/Blood Transfusion Reactions: No Reported Reaction Past Psychological History: No Psychological Hx Reported Smoking Status: Current every day smoker Past Alcohol Use History: None Reported Past Drug Use History: None Reported - Past Family History Father Family Medical History: Myocardial Infarction ([place]), Renal Disease Mother Family Medical History: Cancer Brother(s) Family Medical History: Cancer Sister(s) Family Medical History: Cancer Medications and Allergies Home Medications Medication Instructions Recorded Confirmed Type metFORMIN HCL [Glucophage] 500 mg PO TID 03/07/15 12/29/19 History Lisinopril [Prinivil] 10 mg PO DAILY #30 tab 12/27/19 12/29/19 Rx Omeprazole [PriLOSEC] 40 mg PO HS 12/29/19 12/29/19 History Simvastatin 40 mg PO HS 12/29/19 12/29/19 History Allergies Allergy/AdvReac Type Severity Reaction Status Date / Time No Known Allergies Allergy Verified 12/29/19 21:52 Physical Exam Vitals: Vital Signs Temp Pulse Pulse Resp BP BP BP 12/30/19 07:45 98.4 F 17 186/86 12/30/19 04:00 60 148/75 12/30/19 03:55 60 149/78 12/30/19 03:48 60 14 12/30/19 03:37 97.6 F 60 14 168/76 12/29/19 23:19 69 16 12/29/19 23:16 188/83 12/29/19 23:10 192/82 12/29/19 22:47 97.5 F L 69 16 192/75 12/29/19 22:00 62 16 169/75 12/29/19 21:30 63 18 190/85 12/29/19 21:00 68 18 182/93 12/29/19 20:30 59 L 20 180/87 12/29/19 20:00 70 18 201/102 12/29/19 19:34 98.1 F 86 18 207/103 Pulse Ox 12/30/19 07:45 98 12/30/19 04:00 95 12/30/19 03:55 96 12/30/19 03:48 12/30/19 03:37 12/29/19 23:19 12/29/19 23:16 12/29/19 23:10 12/29/19 22:47 97 12/29/19 22:00 97 12/29/19 21:30 97 12/29/19 21:00 96 12/29/19 20:30 12/29/19 20:00 98 12/29/19 19:34 99 Intake and Output 12/29/19 12/30/19 12/30/19 22:59 06:59 14:59 Intake Total 888 Balance 888 Intake: Oral 888 Other: Voiding Method Toilet # Voids 1 Weight 82.917 kg 81.4 kg - Constitutional General appearance: no acute distress - Respiratory Respiratory: bilateral: CTA - Cardiovascular Rhythm: regular Heart sounds: normal: S1, S2 Results 12/29/19 19:50 12/29/19 19:50 Cardiac Enzymes 12/29/19 12/29/19 12/30/19 Range/Units 19:50 19:50 03:15 AST 20 (14-36) U/L Troponin I <0.012 <0.012 (0.000-0.034) ng/mL 12/30/19 Range/Units 07:27 AST (14-36) U/L Troponin I <0.012 (0.000-0.034) ng/mL Coagulation 12/29/19 Range/Units 19:50 PT 9.5 (9.0-12.0) sec APTT 23.7 (22.0-30.0) sec Lipids 12/30/19 Range/Units 03:15 Triglycerides 69 (<150) mg/dL Cholesterol 133 (<200) mg/dL HDL Cholesterol 49 (40-60) mg/dL CBC 12/29/19 Range/Units 19:50 WBC 6.3 (3.8-10.6) k/uL RBC 4.84 (3.80-5.40) m/uL Hgb 13.4 (11.4-16.0) gm/dL Hct 40.9 (34.0-46.0) % Plt Count 218 (150-450) k/uL Comprehensive Metabolic Panel 12/29/19 Range/Units 19:50 Sodium 140 (137-145) mmol/L Potassium 3.9 (3.5-5.1) mmol/L Chloride 105 (98-107) mmol/L Carbon Dioxide 27 (22-30) mmol/L BUN 17 (7-17) mg/dL Creatinine 0.66 (0.52-1.04) mg/dL Glucose 137 H (74-99) mg/dL Calcium 9.2 (8.4-10.2) mg/dL AST 20 (14-36) U/L ALT 11 (4-34) U/L Alkaline Phosphatase 96 (38-126) U/L Total Protein 7.1 (6.3-8.2) g/dL Albumin 4.3 (3.5-5.0) g/dL Current Medications Generic Name Dose Route Start Last Admin Trade Name Freq PRN Reason Stop Dose Admin Aspirin 325 mg 12/30/19 09:00 Aspirin PO DAILY [facility] Atorvastatin Calcium 10 mg 12/30/19 21:00 Lipitor PO HS [facility] Lisinopril 10 mg 12/30/19 09:00 Zestril PO DAILY [facility] Metformin HCl 500 mg 12/30/19 09:00 Glucophage PO BID [facility] Nitroglycerin 0.4 mg 12/29/19 21:30 12/30/19 03:55 Nitrostat SUBLINGUAL 0.4 mg Q5M PRN Administration Chest Pain Sodium Chloride 10 ml 12/30/19 09:00 Saline Flush IV BID [facility] Intake and Output 12/29/19 12/30/19 12/30/19 22:59 06:59 14:59 Intake Total 888 Balance 888 Intake: Oral 888 Other: Voiding Method Toilet # Voids 1 Weight 82.917 kg 81.4 kg 12/29/19 19:50 12/29/19 19:50 Assessment and Plan Assessment: Assessment #1 chest discomfort which has resolved #2 diabetes type 2 #3 significant history of smoking #4 hypertension #5 dyslipidemia #6 evidence of peripheral arterial disease by CTA Plan #1 acute coronary event was ruled out #2 PE was ruled out as well #3 I am going to schedule the patient to undergo a stress test #4 an echocardiogram was Doppler #5 follow-up with the patient Thank you for allowing us participate in her care
--- NOTE | 2019-12-30 11:01 | ECHOF ---
Referral Reason:CP MEASUREMENTS -------- HEIGHT: 162.6 cm WEIGHT: 81.2 kg BP: 148/75 RVIDd: 3.6 cm (< 3.3) IVSd: 1.6 cm (0.6 - 1.1) LVIDd: 3.5 cm (3.9 - 5.3) LVPWd: 1.9 cm (0.6 - 1.1) IVSs: 2.1 cm LVIDs: 2.2 cm LVPWs: 1.9 cm LAESV Index (A-L): 40.99 ml/m Ao Diam: 2.5 cm (2.0 - 3.7) AV Cusp: 1.6 cm (1.5 - 2.6) MV EXCURSION: 14.414 mm (> 18.000) MV EF SLOPE: 62 mm/s (70 - 150) EPSS: 0.3 cm MV E Peña: 1.05 m/s MV DecT: 238 ms MV A Peña: 0.77 m/s MV E/A Ratio: 1.36 RAP: 15.00 mmHg RVSP: 33.68 mmHg FINDINGS -------- Resting bradycardia (HR<60bpm). This was a technically adequate study. The left ventricular size is normal. There is moderate concentric left ventricular hypertrophy. O verall left ventricular systolic function is normal with, an EF between 55 - 60 %. The diastolic fi lling pattern is normal for the age of the patient 16.56. The right ventricle is mildly enlarged. LA is moderately dilated 34-39 ml/m2 The right atrium is mildly enlarged. Interatrial and interventricular septum intact. There is no evidence of aortic regurgitation. There is no evidence of aortic stenosis. There is trace mitral regurgitation. Mild tricuspid regurgitation present. There is borderline pulmonary artery hypertension. The righ t ventricular systolic pressure, as measured by Doppler, is 33.68mmHg. There is no pulmonic regurgitation present. The aortic root size is normal. The inferior vena cava is mildly dilated. There is no pericardial effusion. CONCLUSIONS -------- 1. Resting bradycardia (HR<60bpm). 2. This was a technically adequate study. 3. The left ventricular size is normal. 4. There is moderate concentric left ventricular hypertrophy. 5. Overall left ventricular systolic function is normal with, an EF between 55 - 60 %. 6. The diastolic filling pattern is normal for the age of the patient 16.56 7. The right ventricle is mildly enlarged. 8. LA is moderately dilated 34-39 ml/m2 9. The right atrium is mildly enlarged. 10. Interatrial and interventricular septum intact. 11. There is no evidence of aortic regurgitation. 12. There is no evidence of aortic stenosis. 13. There is trace mitral regurgitation. 14. Mild tricuspid regurgitation present. 15. There is borderline pulmonary artery hypertension. 16. The right ventricular systolic pressure, as measured by Doppler, is 33.68mmHg. 17. There is no pulmonic regurgitation present. 18. The aortic root size is normal. 19. The inferior vena cava is mildly dilated. 20. There is no pericardial effusion. TOWN ADMINISTRATOR: Mary Wooten RDCS
[2019-12-30] MEDS: metFORMIN 500 MG TAB PO SCH ×2 (11:27→20:04)
[2019-12-30] MEDS: ASPIRIN 325 MG TAB PO SCH (11:27)
[2019-12-30] MEDS: LISINOPRIL 10 MG TAB PO SCH (11:27)
--- NOTE | 2019-12-30 11:51 | NM ---
EXAMINATION TYPE: NM stress cardiolite complete DATE OF EXAM: 12/30/2019 COMPARISON: NONE HISTORY: Chest pain TECHNIQUE: After the intravenous administration of 10.17 mCi Tc 99m Sestamibi - Rest images obtained 90 minutes post injection. The patient exercised using a BRANDO protocol and 1 minute prior to peak exercise was injected with 27.1 mCi Tc 99m Sestamibi - Stress images obtained 10 minutes post inject ion. Patient achieved greater than 85% of predicted maximal heart rate. FINDINGS: Targeted heart rate was achieved during performance of the study. Review of stress and rest SPECT dom ges demonstrates decreased uptake along the cardiac apex on stress greater than rest images, decrease d uptake along the inferior wall left ventricle on both stress and rest images and mild decreased upt khadijah along anterior wall greater on rest than on stress images. There is decreased uptake along the i nferior wall of the left ventricle which is greater on stress than rest images towards the lateral wa ll. Gated analysis shows normal wall motion with an estimated left ventricular ejection fraction of 5 8 %. IMPRESSION: Findings suggest prior infarctions, oleg-infarct stress-induced left ventricular myocardial ischemia
[2019-12-30 12:07] LABS: Glucose,Whole Blood 133 mg/dL (75-99)
--- NOTE | 2019-12-30 13:03 | EST ---
EXERCISE STRESS DATE OF SERVICE: 12/30/2019 AGE: 59 SEX: Female HT: 64" WT: 179 pounds PROTOCOL: Cardiolite Cisco STAGE: III DURATION OF EXERCISE: 8 minutes 22 seconds HEART RATE REST: 57 BLOOD PRESSURE REST: 188/87 MAXIMUM HEART RATE ACHIEVED: 144 MAXIMUM BLOOD PRESSURE: 216/88 85% MPHR: 138 100% MPHR: 162 METS: 9.2 INDICATIONS: Chest pain. CLINICAL INFORMATION: History of chest pain, underlying diabetes, dyslipidemia and hypertension. Baseline heart rate 57 beats per minute. Baseline blood pressure 188/87 mmHg. Baseline 12-lead ECG shows sinus rhythm with normal ST segments. Patient exercised on a Cisco protocol for 8 minutes 22 seconds achieving a peak heart rate of 144 beats per minute, hypertensive response to exercise. Peak blood pressure 216/88 mmHg. There was no ECG evidence for ischemia. Occasional PVCs were noted. No sustained or nonsustained arrhythmias. IMPRESSION: Average exercise capacity. The patient exercised into stage III of the Cisco protocol. No ECG evidence for ischemia. Occasional PVCs. MMODL / IJN: [id number] /
--- NOTE | 2019-12-30 16:07 | P.HPIM ---
History of Present Illness H&P Date: 12/30/19 Chief Complaint: Chest pain This is a 59-year-old female with history of hypertension, diabetes mellitus, hyperlipidemia, ongoing nicotine dependence and multiple other medical issues presented to the ER with complaints of dull substernal chest pain radiating to left shoulder, neck and back, occurring at work. Denies shortness of breath, diaphoresis, nausea, vomiting or diarrhea. Denies syncope. Patient recently seen in ER, on Thursday with hypertension, no chest pain , placed on DASH inhibitor and was discharged home. On admission blood pressure 207/103, CTA thoracic/abdomen /pelvis/ aorta reporting material sclerotic vascular disease, severe stenosis of both superficial femoral arteries, no evidence of thoracic or abdominal aortic aneurysm or dissection ,no PE, 50% stenosis origin of the left common iliac artery. Chest x-ray reporting normal chest. EKG reporting normal sinus rhythm, troponins negative 3. CBC, coagulation, chemistry unremarkable. Patient currently chest pain-free. Review of Systems ROS Statement: Those systems with pertinent positive or pertinent negative responses have been documented in the HPI. ROS Other: All systems not noted in ROS Statement are negative. Past Medical History Past Medical History: Diabetes Mellitus, Hyperlipidemia Additional Past Medical History / Comment(s): PT STATES THAT SHE HAS BEEN EPIGASTRIC PAIN OFF AND ON FOR ABOUT 8 MONTHS. History of Any Multi-Drug Resistant Organisms: None Reported Past Surgical History: Hysterectomy Additional Past Surgical History / Comment(s): ID chip in left breast following biopsy. Past Anesthesia/Blood Transfusion Reactions: No Reported Reaction Past Psychological History: No Psychological Hx Reported Smoking Status: Current every day smoker Past Alcohol Use History: None Reported Past Drug Use History: None Reported - Past Family History Father Family Medical History: Myocardial Infarction ([place]), Renal Disease Mother Family Medical History: Cancer Brother(s) Family Medical History: Cancer Sister(s) Family Medical History: Cancer Medications and Allergies Home Medications Medication Instructions Recorded Confirmed Type metFORMIN HCL [Glucophage] 500 mg PO TID 03/07/15 12/29/19 History Lisinopril [Prinivil] 10 mg PO DAILY #30 tab 12/27/19 12/29/19 Rx Omeprazole [PriLOSEC] 40 mg PO HS 12/29/19 12/29/19 History Simvastatin 40 mg PO HS 12/29/19 12/29/19 History Allergies Allergy/AdvReac Type Severity Reaction Status Date / Time No Known Allergies Allergy Verified 12/29/19 21:52 Physical Exam Vitals: Vital Signs Temp Pulse Pulse Resp BP BP BP 12/30/19 11:33 17 12/30/19 11:20 98.5 F 65 18 164/78 12/30/19 07:45 98.4 F 17 186/86 12/30/19 04:00 60 148/75 12/30/19 03:55 60 149/78 12/30/19 03:48 60 14 12/30/19 03:37 97.6 F 60 14 168/76 12/29/19 23:19 69 16 12/29/19 23:16 188/83 12/29/19 23:10 192/82 12/29/19 22:47 97.5 F L 69 16 192/75 12/29/19 22:00 62 16 169/75 12/29/19 21:30 63 18 190/85 12/29/19 21:00 68 18 182/93 12/29/19 20:30 59 L 20 180/87 12/29/19 20:00 70 18 201/102 12/29/19 19:34 98.1 F 86 18 207/103 Pulse Ox 12/30/19 11:33 12/30/19 11:20 97 12/30/19 07:45 98 12/30/19 04:00 95 12/30/19 03:55 96 12/30/19 03:48 12/30/19 03:37 12/29/19 23:19 12/29/19 23:16 12/29/19 23:10 12/29/19 22:47 97 12/29/19 22:00 97 12/29/19 21:30 97 12/29/19 21:00 96 12/29/19 20:30 12/29/19 20:00 98 12/29/19 19:34 99 Intake and Output 12/29/19 12/30/19 12/30/19 22:59 06:59 14:59 Intake Total 888 Balance 888 Intake: Oral 888 Other: Voiding Method Toilet # Voids 1 Weight 82.917 kg 81.4 kg 81.4 kg PHYSICAL EXAM: VITAL SIGNS: As above GENERAL: Sitting up in chair, no acute distress HEENT: Conjunctivae normal. eyes normal. NECK: No JVD. No thyroid enlargement. No LNs CARDIOVASCULAR: S1, S2 regular.. No murmur RESPIRATION: Breath sounds diminished in the bases. No rhonchi or crackles. No bronchial breathing. ABDOMEN: Soft, nontender . No guarding. no masses palpable. No ascites, No hepatosplenomegaly.Bowel sounds heard. LEGS: No edema. no swelling PSYCHIATRY: Alert and oriented X3, mood and affect normal. NERVOUS SYSTEM: Cranial N 2-12 grossly normal. Moves all 4 limbs. Diffuse weakness No focal deficits. Strength and sensation grossly intact.. Skin: no rash Lymphatic system. No LN neck axilla. Results CBC & Chem 7: 12/29/19 19:50 12/29/19 19:50 Labs: Abnormal Lab Results - Last 24 Hours (Table) 12/29/19 12/30/19 12/30/19 Range/Units 19:50 06:07 11:39 Glucose 137 H (74-99) mg/dL POC Glucose (mg/dL) 111 H 133 H (75-99) mg/dL Thrombosis Risk Factor Assmnt - Choose All That Apply Any of the Below Risk Factors Present?: Yes Each Factor Represents 1 point: Age 41-60 years, Obesity (BMI >25) Thrombosis Risk Factor Assessment Total Risk Factor Score: 2 Thrombosis Risk Factor Assessment Level: Low Risk Assessment and Plan Assessment: Chest pain, rule out acute coronary syndrome Hypertensive urgency Peripheral arterial disease per CTA Diabetes mellitus Hypertension Hyperlipidemia Ongoing nicotine dependence Plan: Continue on current medication regime ,monitoring and symptomatic treatment. Evaluated by cardiology and patient is scheduled for stress test/echo today.antihypertensives as per cardiology.GI and DVT prophylaxis in place.home meds have been reviewed and resumed accordingly.Smoking cessation r einforced. The impression and plan of care has been dictated as directed. : I performed a history and examination of this patient, discussed the same with the dictator. I agree with the dictator's note ,documented as a scribe. Any additional findings or plans will be noted.
[2019-12-30] MEDS ORDERED: PANTOPRAZOLE 40 MG/10 ML VIAL IVP SCH (16:15)
[2019-12-30 17:06] LABS: Glucose,Whole Blood 158 mg/dL (75-99)
[2019-12-30 20:34] LABS: Glucose,Whole Blood 152 mg/dL (75-99)
[2019-12-30] MEDS ORDERED: ATORVASTATIN 10 MG TAB PO SCH (21:00)
[2019-12-31] MEDS: LISINOPRIL 10 MG TAB PO SCH (06:01)
[2019-12-31] MEDS: ASPIRIN 325 MG TAB PO SCH (06:01)
[2019-12-31] MEDS: PANTOPRAZOLE 40 MG/10 ML VIAL IVP SCH (06:01)
[2019-12-31 06:09] LABS: Glucose,Whole Blood 146 mg/dL (75-99)
[2019-12-31 06:24] LABS: Basophils % (A) 0 %; Eosinophils # (A) 0.1 k/uL (0-0.7); Eosinophils % (A) 3 %; HCT 39.3 % (34.0-46.0); HGB 12.5 gm/dL (11.4-16.0); Lymphocytes # (A) 1.3 k/uL (1.0-4.8); Lymphocytes % (A) 24 %; MCH 27.3 pg (25.0-35.0); MCHC 31.8 g/dL (31.0-37.0); MCV 85.9 fL (80.0-100.0); Monocytes # (A) 0.3 k/uL (0-1.0); Monocytes % (A) 6 %; Neutrophils # (A) 3.5 k/uL (1.3-7.7); Neutrophils % (A) 64 %; Platelet Count 239 k/uL (150-450); RBC 4.57 m/uL (3.80-5.40); RDW 13.3 % (11.5-15.5); WBC 5.5 k/uL (3.8-10.6)
[2019-12-31 06:37] LABS: African American GFR (CKD) >90 (>60 ml/min/1.73 sqM); Anion Gap 6 mmol/L; Blood Urea Nitrogen 12 mg/dL (7-17); Calcium 8.9 mg/dL (8.4-10.2); Carbon Dioxide 27 mmol/L (22-30); Chloride 106 mmol/L (98-107); Glucose 147 mg/dL (74-99); Non-African American GFR(CKD) >90 (>60 ml/min/1.73 sqM); Potassium 4.4 mmol/L (3.5-5.1); Sodium 139 mmol/L (137-145)
[2019-12-31] MEDS ORDERED: IV FLUID CONTINUATION 650 ML IV ONE (10:00)
[2019-12-31] MEDS ORDERED: MIDAZOLAM 2 MG/2 ML VIAL IV ONE ×2 (10:15→10:49)
[2019-12-31] MEDS ORDERED: VERAPAMIL 2.5 MG/ML 2 ML AMP ONE (10:16)
[2019-12-31] MEDS ORDERED: LIDOCAINE 1% INJ 10MG/ML (20 ML MDV) SQ ONE (10:18)
[2019-12-31] MEDS ORDERED: VERAPAMIL SYRINGE (5 MG/10 ML) INTRAARTER ONE (10:20)
[2019-12-31] MEDS ORDERED: fentaNYL (PF) 50 MCG/ML 2 ML AMP ONE (10:22)
[2019-12-31] MEDS: fentaNYL (PF) 50 MCG/ML 2 ML AMP IV ONE ×2 (10:26→10:52)
[2019-12-31] MEDS ORDERED: BIVALIRUDIN 250 MG in SODIUM CHLORIDE 0.9% 50 ML IV ONE (10:38)
[2019-12-31] MEDS ORDERED: BIVALIRUDIN BOLUS 250 MG/50 ML IV ONE (10:38)
[2019-12-31] MEDS ORDERED: IOPAMIDOL-370 125ML BTL INJ ONE ×2 (10:59)
[2019-12-31] MEDS: NITROGLYCERIN 1000MCG/10ML SYRINGE INTRAARTER ONE ×3 (11:00→11:10)
[2019-12-31] MEDS ORDERED: IOPAMIDOL-370 100ML BTL INJ ONE (11:11)
[2019-12-31] MEDS ORDERED: TICAGRELOR 90 MG TAB ONE (11:13)
[2019-12-31] MEDS ORDERED: TICAGRELOR 90 MG TAB PO ONE (11:14)
[2019-12-31] MEDS ORDERED: ATROPINE SULFATE 0.1 MG/ML 10ML SYRINGE IV PRN (11:22)
[2019-12-31] MEDS ORDERED: NITROGLYCERIN SL TABS 0.4 MG TAB SUBLINGUAL PRN (11:22)
[2019-12-31] MEDS ORDERED: MAG HYDROX/AL HYDROX/SIMETH 30 ML CUP PO PRN (11:22)
[2019-12-31] MEDS ORDERED: RX INFO: IV CONTRAST WAS GIVEN 1 EACH MISC MISCELLANE PRN (11:22)
[2019-12-31] MEDS ORDERED: ZOLPIDEM 5 MG TAB PO PRN (11:22)
[2019-12-31] MEDS ORDERED: SODIUM CHLORIDE 0.9% 1,000 ML IV SCH (11:30)
--- NOTE | 2019-12-31 11:43 | LTR ---
December 31, 2019 Re: Kristin Nicole Dear Freddie: Ms. Kristin Nicole underwent today a heart catheterization after she was admitted to the hospital with chest discomfort and was found to have abnormal/ischemic stress test. The heart catheterization revealed critical disease involving the RCA in the proximal portion as well as PDA branch of the RCA. Kristin underwent successful stenting of both lesions with excellent angiographic results and without any complication. I want to thank you for allowing me to participate in her care and please do not hesitate to call if you have any question or concern. Sincerely, Raudel Moffett MD MMREYL / GERONIMON: [id number] /
--- NOTE | 2019-12-31 11:58 | CC ---
CARDIAC CATHETERIZATION REPORT CARDIAC CATHETERIZATION AND PERCUTANEOUS CORONARY INTERVENTION: PERFORMING PHYSICIAN: Raudel Moffett MD. PROCEDURE PERFORMED: 1. Selective right and left coronary angiogram. 2. Left heart catheterization. 3. Successful stenting of the proximal right coronary artery using 3.5 x 23 mm Xience CHRISTIANO with an excellent angiographic result and reduction of stenosis from 80% to 0%. 4. Successful stenting of the PDA branch of the RCA using 2.0 x 15 mm Rolette CHRISTIANO with an excellent angiographic result and reduction of stenosis from 99% to 0%. INDICATION: This is a very pleasant 59-year-old female patient with diabetes as well as smoking history, who presented to the hospital with chest discomfort and ruled out for acute coronary event. She underwent myocardial perfusion imaging stress test in the hospital and that revealed reversible defect involving the inferior wall of the LV. Because of that, a heart catheterization was advised. APPROACH: Right radial artery and right common femoral artery. COMPLICATION: None. LEVEL OF SEDATION: Moderate with sedation length of 58 minutes. PROCEDURE DESCRIPTION: After obtaining an informed consent, the patient was brought to the cardiac skilled labor. Initially the right radial artery was cannulated using micropuncture technique, the micropuncture wire passed easily then I placed a 6-Anguillan sheath at the right radial artery. I did selective right and left coronary angiogram with using JR4 and JL3.5 catheters. Left heart catheterization was performed using the JR4 catheter. After that, I decided to intervene on the RCA, please see a separate paragraph for that. SELECTIVE CORONARY ANGIOGRAM: 1. The right coronary artery is a large caliber vessel and it is a dominant vessel. The ostial/proximal right coronary artery has a critical lesion appeared to be in the range of 80% to 90%. The RCA is extremely calcified at that spot. The mid RCA appeared to be angiographically normal. The RCA has diffuse disease distally appeared to be in the range of 50% to 60%. Then, it bifurcates into PDA and PLV branches. The PDA branch has a critical lesion appeared to be in the range of 99.9% and the PLV branch appeared to be angiographically normal. 2. The Left Main: The left main is angiographically normal. It bifurcates into LCX and LAD. 3. The left circumflex is a large caliber vessel it is a nondominant vessel. The proximal LCX appeared to be angiographically normal. It gives rise into an OM1 which is a medium to large caliber vessel with mild to moderate disease only. The mid LCX appeared to have mild disease only and gives rise into OM2 which appeared to be angiographically normal. The LCX distally becomes diffusely diseased up to about 50% to 60%. 4. The LAD: The proximal LAD appeared to have mild disease only. The mid LAD by the bifurcation of the diagonal branch appeared to have a lesion in the range of 60% to 70%. The LAD distally appeared to be angiographically normal. HEMODYNAMICS: The LVEDP was 10 to 12 mmHg without significant gradient across aortic valve. PCI OF THE RCA: Initially I attempted accessing the RCA with a guide from right radial approach, but I was unsuccessful. Because of that, I decided to access the groin. The right common femoral artery was cannulated using micropuncture technique, the micropuncture wire passed easily then I placed a 6-Anguillan sheath at the right common femoral artery. After that, I did start anticoagulation with Angiomax. After that, I engaged the RCA using JR3.5 guide. I did wire it using a run-through wire. Subsequently I did balloon angioplasty using 3.0 x 12 mm balloon. The balloon was inflated under 12 atmospheres for 20 seconds. After that, I deployed 3.5 x 23 mm Xience CHRISTIANO where the stent was positioned under fluoroscopy guidance and deployed under 12 atmospheres for 20 seconds. I post dilated the stent using 3.5 mm NC balloon. The following angiogram showed excellent angiographic results. After that for the lesion in the PDA branch of the RCA, I did balloon angioplasty using 2.0 x 12 mm balloon before I deployed 2.0 x 15 mm Rolette drug-eluting stent where the stent was positioned under fluoroscopy guidance and deployed under 20 atmospheres for 20 seconds with the following angiogram showing excellent angiographic results and the procedure was completed without any complication. CONCLUSION: 1. Critical disease involving the proximal RCA as well as the PDA branch of the RCA. The RCA overall is extremely calcified. 2. Intermediate disease involving the left circumflex coronary system. 3. Intermediate to severe disease involving the mid left anterior descending artery by the bifurcation of a large diagonal branch. 4. Successful stenting of the proximal RCA as well as the PDA branch of the RCA with excellent angiographic results and without any complication. POSTPROCEDURE MANAGEMENT: 1. Dual antiplatelet therapy. 2. Risk factor modifications. 3. Aggressive cholesterol control. 4. Follow up with the patient. MMODL / IJN: [id number] /
[2019-12-31] MEDS ORDERED: LISINOPRIL 10 MG TAB PO STA (14:24)
[2019-12-31] MEDS: CARVEDILOL 3.125 MG TAB PO SCH (14:39)
[2019-12-31] MEDS ORDERED: LISINOPRIL 20 MG TAB PO STA (15:49)
[2019-12-31] MEDS ORDERED: TRIAMTERENE-HCTZ 37.5-25MG 1 EACH TAB PO SCH (16:00)
[2019-12-31 17:08] LABS: Glucose,Whole Blood 104 mg/dL (75-99)
[2019-12-31] MEDS ORDERED: CARVEDILOL 3.125 MG TAB PO STA (18:19)
[2019-12-31] MEDS: TICAGRELOR 90 MG TAB PO SCH (19:48)
[2019-12-31] MEDS: ATORVASTATIN 80 MG TAB PO SCH (19:48)
[2019-12-31 20:13] LABS: Glucose,Whole Blood 147 mg/dL (75-99)
[2019-12-31] MEDS ORDERED: hydrALAZINE HCL 20 MG/ML 1 ML VIAL IVP STA ×2 (20:14→20:54)
[2019-12-31] MEDS ORDERED: NITROGLYCERIN-D5W PMX 50 MG in DEXTROSE/WATER 1 250ML.BAG IV SCH (21:30)
[2019-12-31] MEDS ORDERED: cloNIDine 0.3 MG/24HR PATCH TRANSDERM SCH (21:30)
--- NOTE | 2019-12-31 21:31 | P.PN ---
Subjective Progress Note Date: 12/31/19 Principal diagnosis: chest pain This is a 59-year-old female with history of hypertension, diabetes mellitus, hyperlipidemia, ongoing nicotine dependence and multiple other medical issues presented to the ER with complaints of dull substernal chest pain radiating to left shoulder, neck and back, occurring at work. Denies shortness of breath, diaphoresis, nausea, vomiting or diarrhea. Denies syncope. Patient recently seen in ER, on Thursday with hypertension, no chest pain , placed on DASH inhibitor and was discharged home. On admission blood pressure 207/103, CTA thoracic/abdomen /pelvis/ aorta reporting material sclerotic vascular disease, severe stenosis of both superficial femoral arteries, no evidence of thoracic or abdominal aortic aneurysm or dissection ,no PE, 50% stenosis origin of the left common iliac artery. Chest x-ray reporting normal chest. EKG reporting normal sinus rhythm, troponins negative 3. CBC, coagulation, chemistry unremarkable. 12/31/2019 Patient had Cardiolite stress test yesterday which showedfindings suggestive of prior infarction with oleg infarct stress-inducedleft ventricular myocardial ischemia.patient underwent cardiac catheterization today with stent placement to RCA andPDA branch of RCA Patient is being continued on dual antiplatelet therapy and statins and beta blockers. Currently patient denied any complaints of chest pain or shortness of breath. Patient has been afebrile. No nausea vomiting or abdominal pain. No dysuria or hematuria. Active Medications Al Hydroxide/Mg Hydroxide (Maalox) 30 ml PO Q4HR PRN PRN Reason: Heartburn Aspirin (Aspirin) 81 mg PO DAILY [facility] Atorvastatin Calcium (Lipitor) 80 mg PO HS [facility] Last Admin: 12/31/19 19:48 Dose: 80 mg Documented by: Atropine Sulfate (Atropine) 0.5 mg IV ONCE PRN PRN Reason: Symptomatic Bradycardia Carvedilol (Coreg) 3.125 mg PO BID-W/MEALS [facility] Last Admin: 12/31/19 14:39 Dose: 3.125 mg Documented by: Clonidine HCl (Catapres-Tts 0.3mg Patch) 1 patch TRANSDERM Q7D [facility] Nitroglycerin/Dextrose 50 mg/ (IV Solution) 250 mls @ 6 mls/hr IV .Q24H [facility]; Protocol Lisinopril (Zestril) 40 mg PO DAILY [facility] Miscellaneous Information (Rx Info: Iv Contrast Was Given) 1 each MISCELLANE DAILY PRN PRN Reason: Per Protocol Stop: 01/02/20 11:22 Nitroglycerin (Nitrostat) 0.4 mg SUBLINGUAL Q5M PRN PRN Reason: Chest Pain Last Admin: 12/30/19 03:55 Dose: 0.4 mg Documented by: Nitroglycerin (Nitrostat) 0.4 mg SUBLINGUAL Q5M PRN PRN Reason: Chest Pain Pantoprazole Sodium (Protonix) 40 mg IVP DAILY [facility] Last Admin: 12/31/19 06:01 Dose: 40 mg Documented by: Sodium Chloride (Saline Flush) 10 ml IV BID [facility] Last Admin: 12/31/19 19:51 Dose: Not Given Documented by: Ticagrelor (Brilinta) 90 mg PO BID [facility] Last Admin: 12/31/19 19:48 Dose: 90 mg Documented by: Triamterene/HCTZ (Maxzide-25) 1 each PO DAILY [facility] Last Admin: 12/31/19 16:41 Dose: 1 each Documented by: Zolpidem Tartrate (Ambien) 5 mg PO HS PRN PRN Reason: Insomnia Objective - Vital Signs Vital signs: Vital Signs Temp 98.2 F 12/31/19 12:21 Pulse 50 L 12/31/19 12:21 Resp 16 12/31/19 12:21 BP 183/82 12/31/19 12:21 Pulse Ox 98 12/31/19 12:21 Intake & Output 12/30/19 12/31/19 12/31/19 18:59 06:59 18:59 Intake Total 250 145 Output Total 360 Balance 250 -360 145 Weight 81.4 kg 80.4 kg Intake: IV 10 145 0.9 10 Oral 240 Output: Urine 360 Other: Voiding Method Toilet Toilet # Voids 1 - Exam PHYSICAL EXAMINATION: Patient is lying in the bed comfortably, no acute distress, awake alert and oriented.. HEENT: Normocephalic. Neck is supple. Pupils reactive. Nostrils clear. Oral cavity is moist. Ears reveal no drainage. Neck reveals no JVD, carotid bruits, or thyromegaly. CHEST EXAMINATION: Trachea is central. Symmetrical expansion. Lung kohli clear to auscultation and percussion. CARDIAC: Normal S1, S2 with no gallops. No murmurs ABDOMEN: Soft. Bowel sounds normal. No organomegaly. No abdominal bruits. Extremities: reveal no edema. No clubbing or cyanosis Neurologically awake, alert, oriented x3 with well-coordinated movements. No focal deficits noted Skin: No rash or skin lesions. Psychiatric: Coperative. Nonsuicidal Musculoskeletal: No joint swelling or deformity. Normal range of motion. - Labs CBC & Chem 7: 12/31/19 06:09 12/31/19 06:09 Labs: Abnormal Lab Results - Last 24 Hours (Table) 12/30/19 12/30/19 12/31/19 Range/Units 17:05 20:33 06:07 Glucose (74-99) mg/dL POC Glucose (mg/dL) 158 H 152 H 146 H (75-99) mg/dL 12/31/19 Range/Units 06:09 Glucose 147 H (74-99) mg/dL POC Glucose (mg/dL) (75-99) mg/dL Assessment and Plan Assessment: Chest pain, ruled out acute coronary syndrome. Abnormal Cardiolite stress test. Status post cardiac catheterization and stent placement to RCA Coronary artery disease Hypertensive urgency Peripheral arterial disease per CTA Diabetes mellitus Hypertension Hyperlipidemia Ongoing nicotine dependence DVT prophylaxis = Plan: Continue on current medication regime ,monitoring and symptomatic treatment. continue withdual antiplatelet therapy, beta blockers and statins. Cardiology is following.GI and DVT prophylaxis in place.home meds have been reviewed and resumed accordingly.Smoking cessation reinforced. Time with Patient: Greater than 30
[2019-12-31 21:50] LABS: Glucose,Whole Blood 144 mg/dL (75-99)
[2019-12-31] MEDS ORDERED: ONDANSETRON 4 MG/2 ML VIAL IVP PRN (22:46)
[2019-12-31] MEDS: TRIAMTERENE-HCTZ 37.5-25MG 1 EACH TAB PO SCH (23:30)
[2020-01-01] MEDS ORDERED: NALOXONE 0.4 MG/ML 1 ML VIAL IV PRN (00:37)
[2020-01-01 05:18] LABS: Basophils % (A) 0 %; Eosinophils % (A) 1 %; HCT 39.6 % (34.0-46.0); HGB 12.8 gm/dL (11.4-16.0); Lymphocytes # (A) 0.9 k/uL (1.0-4.8); Lymphocytes % (A) 12 %; MCH 27.7 pg (25.0-35.0); MCHC 32.4 g/dL (31.0-37.0); MCV 85.5 fL (80.0-100.0); Mean Platelet Volume 7.4; Monocytes # (A) 0.4 k/uL (0-1.0); Monocytes % (A) 5 %; Neutrophils # (A) 5.9 k/uL (1.3-7.7); Neutrophils % (A) 81 %; Platelet Count 238 k/uL (150-450); RBC 4.63 m/uL (3.80-5.40); RDW 13.6 % (11.5-15.5); WBC 7.4 k/uL (3.8-10.6)
[2020-01-01 05:31] LABS: African American GFR (CKD) >90 (>60 ml/min/1.73 sqM); Anion Gap 8 mmol/L; Blood Urea Nitrogen 14 mg/dL (7-17); Calcium 9.3 mg/dL (8.4-10.2); Carbon Dioxide 25 mmol/L (22-30); Chloride 105 mmol/L (98-107); Glucose 172 mg/dL (74-99); Non-African American GFR(CKD) >90 (>60 ml/min/1.73 sqM); Sodium 138 mmol/L (137-145)
[2020-01-01] MEDS: TRIAMTERENE-HCTZ 37.5-25MG 1 EACH TAB PO SCH (07:03)
[2020-01-01] MEDS: ASPIRIN 81 MG PO SCH (08:22)
[2020-01-01] MEDS: CARVEDILOL 3.125 MG TAB PO SCH ×2 (08:22→16:43)
[2020-01-01] MEDS: PANTOPRAZOLE 40 MG/10 ML VIAL IVP SCH (08:22)
[2020-01-01] MEDS: TICAGRELOR 90 MG TAB PO SCH ×2 (08:23→20:33)
[2020-01-01] MEDS ORDERED: LISINOPRIL 20 MG TAB PO SCH ×2 (09:00)
[2020-01-01] MEDS: LISINOPRIL 20 MG TAB PO SCH (09:17)
--- NOTE | 2020-01-01 09:52 | P.PN ---
Subjective This is Lenora Tobias PA-C dictating a progress note on this patient The patient was interviewed and examined by me as well as by Dr. Garcia Case discussed with Dr. Garcia and he agrees with the plan of care HPI/interval history Patient is a 59-year-old female with a history of diabetes, hypertension, dyslipidemia, smoking who presented with chest discomfort. She underwent a exercise Cardiolite stress test which was suggestive of prior infarctions and oleg infarction stress-induced ischemia therefore cardiac catheterization was recommended. Yesterday she underwent cardiac catheterization which revealed critical disease of involving the proximal RCA and the PDA, intermediate disease involving the left circumflex, and intermediate to severe disease of the mid LAD. She underwent successful stenting of the proximal RCA and the PDA. Overnight her blood pressure was elevated and she was transferred to the ICU. Today her blood pressure is much better controlled. Patient seen and examined sitting in the chair. Denies any chest discomfort. No shortness of breath. No dizziness or palpitations. Bedside telemetry shows sinus rhythm. EXAMINATION Patient is afebrile, pulse in the 50s, respirations 14, blood pressure in the 130s over 60s, oxygen saturation 92% on room air He should seen and examined sitting up in the chair, in no acute distress Lungs are clear to auscultation bilaterally Heart is regular, no audible murmurs No elevated JVD No lower extremity edema Right groin access site tender to palpation with very small palpable hematoma REVIEW OF LABS, ECG WBC 7.4, hemoglobin 12.8, platelets 238, potassium 4.0, BUN 14, creatinine 0.62 Echocardiogram shows moderate concentric LVH, EF 55-60% IMPRESSION / ASSESSMENT: Triple-vessel CAD status post stenting to the RCA and PDA, intermediate disease of the left circumflex and intermediate to severe disease of the mid LAD Diabetes Smoker Hypertension, blood pressure control has improved Dyslipidemia PAD PLAN: Continue dual antiplatelet therapy and statins Continue Coreg 3.125 twice a day and lisinopril 40 mg daily along with Maxzide Avoid IV antihypertensive medications Continue to monitor her groin access site She may be transferred to [facility] Objective - Vital Signs Vital signs: Vital Signs Temp 98.3 F 01/01/20 08:00 Pulse 59 L 01/01/20 08:00 Resp 14 01/01/20 08:00 BP 135/60 01/01/20 08:00 Pulse Ox 92 L 01/01/20 08:00 Intake & Output 12/31/19 01/01/20 01/01/20 18:59 06:59 18:59 Intake Total 685 240 360 Output Total 260 Balance 685 -20 360 Intake: IV 145 140 20 0.9 140 20 Oral 540 100 340 Output: Urine 260 Other: Voiding Method Toilet # Voids 1 1 1 - Labs CBC & Chem 7: 01/01/20 04:45 01/01/20 04:45 Labs: Abnormal Lab Results - Last 24 Hours (Table) 12/31/19 12/31/19 12/31/19 Range/Units 17:06 20:13 21:49 Lymphocytes # (1.0-4.8) k/uL Glucose (74-99) mg/dL POC Glucose (mg/dL) 104 H 147 H 144 H (75-99) mg/dL 01/01/20 01/01/20 Range/Units 04:45 04:45 Lymphocytes # 0.9 L (1.0-4.8) k/uL Glucose 172 H (74-99) mg/dL POC Glucose (mg/dL) (75-99) mg/dL
[2020-01-01 11:40] LABS: Glucose,Whole Blood 138 mg/dL (75-99)
[2020-01-01 12:12] VITALS: BMI 30.4
[2020-01-01] MEDS: INSULIN ASPART (NovoLOG) 100 UNIT/ML VIAL SQ SCH ×3 (12:14→20:59)
[2020-01-01 16:39] LABS: Glucose,Whole Blood 153 mg/dL (75-99)
[2020-01-01] MEDS: ATORVASTATIN 80 MG TAB PO SCH (20:33)
[2020-01-01 20:58] LABS: Glucose,Whole Blood 177 mg/dL (75-99)
--- NOTE | 2020-01-01 21:17 | P.PN ---
Subjective Progress Note Date: 01/01/20 Principal diagnosis: chest pain This is a 59-year-old female with history of hypertension, diabetes mellitus, hyperlipidemia, ongoing nicotine dependence and multiple other medical issues presented to the ER with complaints of dull substernal chest pain radiating to left shoulder, neck and back, occurring at work. Denies shortness of breath, diaphoresis, nausea, vomiting or diarrhea. Denies syncope. Patient recently seen in ER, on Thursday with hypertension, no chest pain , placed on DASH inhibitor and was discharged home. On admission blood pressure 207/103, CTA thoracic/abdomen /pelvis/ aorta reporting material sclerotic vascular disease, severe stenosis of both superficial femoral arteries, no evidence of thoracic or abdominal aortic aneurysm or dissection ,no PE, 50% stenosis origin of the left common iliac artery. Chest x-ray reporting normal chest. EKG reporting normal sinus rhythm, troponins negative 3. CBC, coagulation, chemistry unremarkable. 12/31/2019 Patient had Cardiolite stress test yesterday which showedfindings suggestive of prior infarction with oleg infarct stress-inducedleft ventricular myocardial ischemia.patient underwent cardiac catheterization today with stent placement to RCA andPDA branch of RCA Patient is being continued on dual antiplatelet therapy and statins and beta blockers. Currently patient denied any complaints of chest pain or shortness of breath. Patient has been afebrile. No nausea vomiting or abdominal pain. No dysuria or hematuria. 11/2019 patient is status postcardiac catheterizationand stent placement to RCA patient is currently in the MICU. Overnight patient's blood pressure was uncontrolled and was initially transferred to ICU. At present is well controlled now. Patient is being continued on Coreg and dual antiplatelet therapy. Cardiology is following. No complaints of headache or dizziness or lightheadedness. No nausea vomiting or abdominal zaire No complaints of chest pain or shortness of breath. Patient is being transferred to telemetry unit.. Active Medications Al Hydroxide/Mg Hydroxide (Maalox) 30 ml PO Q4HR PRN PRN Reason: Heartburn Aspirin (Aspirin) 81 mg PO DAILY [facility] Last Admin: 01/01/20 08:22 Dose: 81 mg Documented by: Atorvastatin Calcium (Lipitor) 80 mg PO HS [facility] Last Admin: 01/01/20 20:33 Dose: 80 mg Documented by: Atropine Sulfate (Atropine) 0.5 mg IV ONCE PRN PRN Reason: Symptomatic Bradycardia Carvedilol (Coreg) 3.125 mg PO BID-W/MEALS [facility] Last Admin: 01/01/20 16:43 Dose: 3.125 mg Documented by: Clonidine HCl (Catapres-Tts 0.3mg Patch) 1 patch TRANSDERM Q7D [facility] Last Admin: 12/31/19 22:03 Dose: Not Given Documented by: Insulin Aspart (Novolog) 0 unit SQ [facility]; Protocol Last Admin: 01/01/20 20:59 Dose: 2 unit Documented by: Lisinopril (Zestril) 40 mg PO 0700 [facility] Last Admin: 01/01/20 09:17 Dose: 40 mg Documented by: Miscellaneous Information (Rx Info: Iv Contrast Was Given) 1 each MISCELLANE DAILY PRN PRN Reason: Per Protocol Stop: 01/02/20 11:22 Naloxone HCl (Narcan) 0.2 mg IV Q2M PRN PRN Reason: Opioid Reversal Nitroglycerin (Nitrostat) 0.4 mg SUBLINGUAL Q5M PRN PRN Reason: Chest Pain Last Admin: 12/30/19 03:55 Dose: 0.4 mg Documented by: Nitroglycerin (Nitrostat) 0.4 mg SUBLINGUAL Q5M PRN PRN Reason: Chest Pain Ondansetron HCl (Zofran) 4 mg IVP Q8HR PRN PRN Reason: Nausea And Vomiting Last Admin: 12/31/19 22:51 Dose: 4 mg Documented by: Pantoprazole Sodium (Protonix) 40 mg IVP DAILY [facility] Last Admin: 01/01/20 08:22 Dose: 40 mg Documented by: Sodium Chloride (Saline Flush) 10 ml IV BID [facility] Last Admin: 01/01/20 20:33 Dose: 10 ml Documented by: Ticagrelor (Brilinta) 90 mg PO BID [facility] Last Admin: 01/01/20 20:33 Dose: 90 mg Documented by: Triamterene/HCTZ (Maxzide-25) 1 each PO 0700 [facility] Last Admin: 01/01/20 07:03 Dose: 1 each Documented by: Zolpidem Tartrate (Ambien) 5 mg PO HS PRN PRN Reason: Insomnia Objective - Vital Signs Vital signs: Vital Signs Temp 98.3 F 01/01/20 12:00 Pulse 76 01/01/20 12:00 Resp 17 01/01/20 12:00 BP 95/66 01/01/20 12:00 Pulse Ox 97 01/01/20 12:00 Intake & Output 12/31/19 01/01/20 01/01/20 18:59 06:59 18:59 Intake Total 685 240 720 Output Total 260 Balance 685 -20 720 Weight 80.4 kg Intake: IV 145 140 20 0.9 140 20 Oral 540 100 700 Output: Urine 260 Other: Voiding Method Toilet Toilet # Voids 1 1 1 - Exam PHYSICAL EXAMINATION: Patient is lying in the bed comfortably, no acute distress, awake alert and oriented.. HEENT: Normocephalic. Neck is supple. Pupils reactive. Nostrils clear. Oral cavity is moist. Ears reveal no drainage. Neck reveals no JVD, carotid bruits, or thyromegaly. CHEST EXAMINATION: Trachea is central. Symmetrical expansion. Lung kohli clear to auscultation and percussion. CARDIAC: Normal S1, S2 with no gallops. No murmurs ABDOMEN: Soft. Bowel sounds normal. No organomegaly. No abdominal bruits. Extremities: reveal no edema. No clubbing or cyanosis Neurologically awake, alert, oriented x3 with well-coordinated movements. No focal deficits noted Skin: No rash or skin lesions. Psychiatric: Coperative. Nonsuicidal Musculoskeletal: No joint swelling or deformity. Normal range of motion. - Labs CBC & Chem 7: 01/01/20 04:45 01/01/20 04:45 Labs: Abnormal Lab Results - Last 24 Hours (Table) 12/31/19 12/31/19 12/31/19 Range/Units 17:06 20:13 21:49 Lymphocytes # (1.0-4.8) k/uL Glucose (74-99) mg/dL POC Glucose (mg/dL) 104 H 147 H 144 H (75-99) mg/dL 01/01/20 01/01/20 01/01/20 Range/Units 04:45 04:45 11:39 Lymphocytes # 0.9 L (1.0-4.8) k/uL Glucose 172 H (74-99) mg/dL POC Glucose (mg/dL) 138 H (75-99) mg/dL Assessment and Plan Assessment: Chest pain, ruled out acute coronary syndrome. Abnormal Cardiolite stress test. Status post cardiac catheterization and stent placement to RCA Coronary artery disease Hypertensive urgency. Controlled now Peripheral arterial disease per CTA Diabetes mellitus Hypertension Hyperlipidemia Ongoing nicotine dependence DVT prophylaxis = Plan: Continue on current medication regime ,monitoring and symptomatic treatment. continue withdual antiplatelet therapy, beta blockers and statins. Cardiology is following.GI and DVT prophylaxis in place. Smoking cessation reinforced. Time with Patient: Greater than 30
[2020-01-02 04:07] VITALS: TEMP 98.1
[2020-01-02 06:01] LABS: Basophils % (A) 1 %; Eosinophils # (A) 0.1 k/uL (0-0.7); Eosinophils % (A) 2 %; HGB 13.4 gm/dL (11.4-16.0); Lymphocytes # (A) 1.2 k/uL (1.0-4.8); Lymphocytes % (A) 21 %; MCH 27.6 pg (25.0-35.0); MCHC 31.9 g/dL (31.0-37.0); MCV 86.7 fL (80.0-100.0); Mean Platelet Volume 7.2; Monocytes # (A) 0.5 k/uL (0-1.0); Monocytes % (A) 9 %; Neutrophils # (A) 3.9 k/uL (1.3-7.7); Neutrophils % (A) 65 %; Platelet Count 199 k/uL (150-450); RBC 4.85 m/uL (3.80-5.40); RDW 13.7 % (11.5-15.5)
[2020-01-02 06:09] LABS: Calcium 9.4 mg/dL (8.4-10.2)
[2020-01-02 06:35] LABS: Glucose,Whole Blood 159 mg/dL (75-99)
[2020-01-02] MEDS: INSULIN ASPART (NovoLOG) 100 UNIT/ML VIAL SQ SCH (06:39)
[2020-01-02] MEDS: CARVEDILOL 3.125 MG TAB PO SCH (06:39)
[2020-01-02] MEDS: LISINOPRIL 20 MG TAB PO SCH (06:39)
[2020-01-02] MEDS: TRIAMTERENE-HCTZ 37.5-25MG 1 EACH TAB PO SCH (06:58)
--- NOTE | 2020-01-02 08:10 | PN ---
PROGRESS NOTE Mrs. Nicole is a 59-year-old female who presented with symptoms of chest discomfort. She subsequently underwent a myocardial perfusion imaging that revealed evidence of inducible ischemia in the apex as well as the inferior wall. She subsequently underwent a cardiac catheterization by Dr. Moffett and was found to have obstructive disease involving the right coronary artery, underwent stenting of that vessel. The LAD has a moderate disease as well as the left circumflex. She is doing well this morning. Her breathing is stable. She denies any chest pain. She denies any dizziness or palpitation. She continues to be in sinus mechanism without any malignant arrhythmia. She continues to be on aspirin once a day, Lipitor 80 mg daily, Coreg 3.125 mg twice a day, clonidine patch, lisinopril 40 mg daily and Brilinta 90 mg twice a day in addition to Maxzide. PHYSICAL EXAMINATION: Blood pressure 114/50 with the heart rate in the 50s. LUNGS: Clear. HEART: Regular rate and rhythm. S1, S2. No S3. No rub appreciated. ABDOMEN: Soft, obese, nontender. EXTREMITIES: No edema. LAB DATA: Lab data revealed a BUN and creatinine 28 and 1.12, potassium 4.0, hemoglobin 13.4. IMPRESSION: 1. Status post stenting of the right coronary artery. 2. Hypertension. 3. Hyperlipidemia. 4. Diabetes mellitus. RECOMMENDATION: From the cardiac standpoint, I will stop the clonidine, continue the dose of Coreg, continue the diuretic, increase her activity. If she is stable, she may be able to be discharged home today and follow her renal function as an outpatient. MMODL / IJN: [id number] /
[2020-01-02 08:33] VITALS: RESP 12
[2020-01-02] MEDS ORDERED: LISINOPRIL 20 MG TAB PO SCH (09:00)
[2020-01-02] MEDS: PANTOPRAZOLE 40 MG/10 ML VIAL IVP SCH (09:56)
[2020-01-02] MEDS: TICAGRELOR 90 MG TAB PO SCH (09:56)
[2020-01-02] MEDS: ASPIRIN 81 MG PO SCH (09:56)
[2020-01-02 10:30] VITALS: PULSE 63
[2020-01-02 10:36] VITALS: BP 127/58
[2020-01-02 11:27] LABS: Hemoglobin A1C 7.2 % (4.0-6.0)
--- NOTE | 2020-01-02 14:21 | P.DS ---
Providers Date of admission: 12/29/19 21:32 Expected date of discharge: 01/02/20 Attending physician: Freddie Parks Consults: 12/29/19 21:30 Consult Physician Routine Consulting Provider: Melissa Knapp Consult Reason/Comments: chest pain Do you want consulting provider notified?: Yes 12/31/19 11:22 Consult Physician Routine Consulting Provider: [facility] Consult Reason/Comments: Post Interventional patient Do you want consulting provider notified?: Already Contacted Primary care physician: Freddie Parks Hospital Course: Final Diagnoses: Chest pain, rule out acute coronary syndrome Hypertensive urgency Peripheral arterial disease per CTA Diabetes mellitus Hypertension Hyperlipidemia Ongoing nicotine dependence Hospital course:This is a 59-year-old female with history of hypertension, diabetes mellitus, hyperlipidemia, ongoing nicotine dependence and multiple other medical issues presented to the ER with complaints of dull substernal chest pain radiating to left shoulder, neck and back, occurring at work. Denies shortness of breath, diaphoresis, nausea, vomiting or diarrhea. Denies syncope. Patient recently seen in ER, on Thursday with hypertension, no chest pain , placed on DASH inhibitor and was discharged home. On admission blood pressure 207/103, CTA thoracic/abdomen /pelvis/ aorta reporting material sclerotic vascular disease, severe stenosis of both superficial femoral arteries, no evidence of thoracic or abdominal aortic aneurysm or dissection ,no PE, 50% stenosis origin of the left common iliac artery. Chest x-ray reporting normal chest. EKG reporting normal sinus rhythm, troponins negative 3. CBC, coagulation, chemistry unremarkable. Patient currently chest pain-free. Underwent Cardiolite stress test yesterday which showed findings suggestive of prior infarction with oleg infarct stress-inducedleft ventricular myocardial ischemia.patient underwent cardiac catheterization today with stent placement to RCA andPDA branch of RCA. Maintained on dual antiplatelet therapy and statins and beta blockers. 11/2019 patient is status postcardiac catheterizationand stent placement to RCA patient is currently in the MICU. Overnight patient's blood pressure was uncontrolled and was initially transferred to ICU. At present is well controlled now. Patient is being continued on Coreg and dual antiplatelet ther apy. Cardiology is following. No complaints of headache or dizziness or lightheadedness. No nausea vomiting or abdominal zaire No complaints of chest pain or shortness of breath. Patient is being transferred to telemetry unit.. Significant clinical improvement. Cleared by cardiology for discharge. Patient is being discharged home in a stable condition with guarded prognosis. EXAM: GENERAL: Alert and oriented 3, no acute distress CARDIOVASCULAR: S1, S2 regular.. No murmur RESPIRATION: Breath sounds diminished in the bases. ABDOMEN: Soft, nontender . No guarding. no masses palpable. Bowel sounds heard. NERVOUS SYSTEM: No focal deficits. The impression and plan of care has been dictated as directed. : I performed a history and examination of this patient, discussed the same with the dictator. I agree with the dictator's note ,documented as a scribe. Any additional findings or plans will be noted. Patient Condition at Discharge: Stable Plan - Discharge Summary Discharge Rx Participant: No New Discharge Prescriptions: New Ticagrelor [Brilinta] 90 mg PO BID #60 tab Carvedilol [Coreg] 3.125 mg PO BID-W/MEALS #60 tab Aspirin EC [Ecotrin Low Dose] 81 mg PO DAILY #30 tablet. Atorvastatin [Lipitor] 80 mg PO HS #30 tab Triamterene-Hctz 37.5-25Mg [Maxzide 37.5-25] 1 each PO 0700 #30 tab Nitroglycerin Sl Tabs [Nitrostat] 0.4 mg SUBLINGUAL Q5M PRN #100 tab PRN Reason: Chest Pain Lisinopril [Zestril] 20 mg PO BID #60 tab Continue Omeprazole [PriLOSEC] 40 mg PO HS Discontinued Lisinopril [Prinivil] 10 mg PO DAILY #30 tab Simvastatin 40 mg PO HS Discharge Medication List Omeprazole [PriLOSEC] 40 mg PO HS 12/29/19 [History] Aspirin EC [Ecotrin Low Dose] 81 mg PO DAILY #30 tablet. 01/02/20 [Rx] Atorvastatin [Lipitor] 80 mg PO HS #30 tab 01/02/20 [Rx] Carvedilol [Coreg] 3.125 mg PO BID-W/MEALS #60 tab 01/02/20 [Rx] Lisinopril [Zestril] 20 mg PO BID #60 tab 01/02/20 [Rx] Nitroglycerin Sl Tabs [Nitrostat] 0.4 mg SUBLINGUAL Q5M PRN #100 tab 01/02/20 [Rx] Ticagrelor [Brilinta] 90 mg PO BID #60 tab 01/02/20 [Rx] Triamterene-Hctz 37.5-25Mg [Maxzide 37.5-25] 1 each PO 0700 #30 tab 01/02/20 [Rx] Follow up Appointment(s)/Referral(s): [facility] [NON-STAFF] - 4 Weeks (After discharge, you will follow-up with your coal shooter. Once you have obtained a prescription for cardiac rehab, please call [phone] to set up an evaluation.) Raudel Moffett MD [STAFF PHYSICIAN] - 01/13/20 1:45 pm (Please arrive at 1:30 PM with photo ID, insurance card and a list of current medications.) Freddie Parks DO [Primary Care Provider] - 1 Week (01/09/20Thursday at 1:20pm) Ambulatory/Diagnostic Orders: Basic Metabolic Panel [LAB.AMB] Time Frame: 3 Days, Location: None Selected Patient Instructions/Handouts: *[facility] - After Heart Catheterization - Heel Shaver Instructions, How to Stop Smoking (GEN), Chronic Hypertension (GEN) Activity/Diet/Wound Care/Special Instructions: metformin currently on hold, r/t renal fx. maintain log of bs, take to f/u visit for further rec. case management to verify OP cov. for [facility]- RN notified as well. Discharge Disposition: HOME SELF-CARE
== END 2020-01-02 14:10 | disposition home or self-care (01) | DRG 247 ==
LOC: EC 19:33 → 3SCARD 21:32 → 2SICU 12-31 21:45
PROVIDERS: ADMIT Family Medicine; ATTEND Family Medicine
PROC: 4A023N7 Measurement of Cardiac Sampling and Pressure, Left Heart, Percutaneous Approach (ICD-10-PCS; principal; 2019-12-31 01:00)
PROC: 027135Z Dilation of Coronary Artery, Two Arteries with Two Drug-eluting Intraluminal Devices, Percutaneous Approach (ICD-10-PCS; principal; 2019-12-31 01:00)
PROC: B2111ZZ Fluoroscopy of Multiple Coronary Arteries using Low Osmolar Contrast (ICD-10-PCS; principal; 2019-12-31 01:00)
DX: I25.10 Atherosclerotic heart disease of native coronary artery without angina pectoris (principal); I24.9 Acute ischemic heart disease, unspecified; E78.5 Hyperlipidemia, unspecified; I10 Essential (primary) hypertension; I16.0 Hypertensive urgency; G47.00 Insomnia, unspecified; F17.200 Nicotine dependence, unspecified, uncomplicated; E11.51 Type 2 diabetes mellitus with diabetic peripheral angiopathy without gangrene; Z79.02 Long term (current) use of antithrombotics/antiplatelets; Z79.82 Long term (current) use of aspirin; Z79.84 Long term (current) use of oral hypoglycemic drugs; Z79.899 Other long term (current) drug therapy; Z82.49 Family history of ischemic heart disease and other diseases of the circulatory system; Z90.710 Acquired absence of both cervix and uterus; Z95.5 Presence of coronary angioplasty implant and graft; Z98.890 Other specified postprocedural states; Z80.9 Family history of malignant neoplasm, unspecified
CPT/HCPCS: 36415; 71046; 71275; 74174; 78452; 80048; 80053; 80061; 83036; 83690; 83735; 84484; 85025; 85610; 85730; 93005; 93017; 93306; 93458

== ENCOUNTER → 2020-01-04 | Outpatient (CLI) | payer BC ==
[2020-01-04 09:38] LABS: HCT 41.1 % (34.0-46.0); HGB 13.1 gm/dL (11.4-16.0); MCH 27.5 pg (25.0-35.0); MCHC 31.9 g/dL (31.0-37.0); MCV 86.2 fL (80.0-100.0); Mean Platelet Volume 7.4; Platelet Count 262 k/uL (150-450); RBC 4.76 m/uL (3.80-5.40); RDW 13.5 % (11.5-15.5); WBC 6.9 k/uL (3.8-10.6)
[2020-01-04 17:40] LABS: African American GFR (CKD) 57.7 (60.0-200.0); Anion Gap 7.1 mmol/L (4.00-12.00); BUN/Creat Ratio 25.83 Ratio (12.00-20.00); Carbon Dioxide 29.9 mmol/L (21.6-31.8); Non-African American GFR(CKD) 49.8 (60.0-200.0); Potassium 5.2 mmol/L (3.5-5.5)
== END | disposition home or self-care (01) ==
LOC: LABWHC1 08:41
PROVIDERS: ATTEND Nurse Practitioner
DX: I25.10 Atherosclerotic heart disease of native coronary artery without angina pectoris (principal); N17.9 Acute kidney failure, unspecified
CPT/HCPCS: 36415; 80048; 85027

== ENCOUNTER → 2020-05-21 | Outpatient (CLI) | payer BC ==
[2020-05-21 16:48] LABS: Chol/HDL Ratio 4.1; LDL Cholesterol,Calculated 97.6 mg/dL (0.0-131.0); VLDL Calculation 23.4 mg/dL (5.00-40.00)
== END | disposition home or self-care (01) ==
LOC: LABWHC1 07:37
PROVIDERS: ATTEND Nurse Practitioner Adult Health
DX: E78.5 Hyperlipidemia, unspecified (principal)
CPT/HCPCS: 36415; 80061

== ENCOUNTER → 2020-07-11 | Outpatient (CLI) | payer BC ==
[2020-07-11 15:20] LABS: HCT 36.3 % (34.0-46.0); HGB 11.7 gm/dL (11.4-16.0); MCH 27.8 pg (25.0-35.0); MCHC 32.1 g/dL (31.0-37.0); MCV 86.6 fL (80.0-100.0); Platelet Count 259 k/uL (150-450); RBC 4.19 m/uL (3.80-5.40); RDW 13.4 % (11.5-15.5)
[2020-07-11 15:35] LABS: Potassium 4.9 mmol/L (3.5-5.1)
== END | disposition home or self-care (01) ==
LOC: LABPAT 14:39
PROVIDERS: ATTEND Internal Medicine Interventional Cardiology
DX: Z01.818 Encounter for other preprocedural examination (principal); I70.213 Atherosclerosis of native arteries of extremities with intermittent claudication, bilateral legs
CPT/HCPCS: 36415; 80051; 82565; 84520; 85027

== ENCOUNTER 2020-07-13 06:07 | Day surgery (SDC) | payer BC ==
[2020-07-11 11:35] VITALS: BMI 30.2
[~2020-07-13 06:07] MED LIST: SODIUM CHLORIDE 0.9% 1,000 ML in EMPTY BAG 1 BAG IV ONE
[2020-07-13 07:00] LABS: Glucose,Whole Blood 172 mg/dL (75-99)
[2020-07-13 07:12] VITALS: RESP 16; TEMP 98.3
[2020-07-13] MEDS ORDERED: SODIUM CHLORIDE 0.9% 1,000 ML IV ONE (07:15)
[2020-07-13] MEDS ORDERED: MIDAZOLAM 2 MG/2 ML VIAL IVP ONE (07:43)
[2020-07-13] MEDS ORDERED: LIDOCAINE 1% INJ 10MG/ML (20 ML MDV) SQ ONE (07:55)
[2020-07-13] MEDS ORDERED: IOPAMIDOL-250 100ML BTL INTRAARTER ONE ×2 (08:07→08:08)
[2020-07-13] MEDS ORDERED: SODIUM CHLORIDE 0.9% 1,000 ML IV SCH (08:15)
--- NOTE | 2020-07-13 08:36 | IR ---
EXAMINATION TYPE: IR angio abdominal w runoff DATE OF EXAM: 07/13/2020 COMPARISON: NONE HISTORY: Fluoroscopy time. Fluoroscopy was provided to the referring clinician.
--- NOTE | 2020-07-13 08:42 | LTR ---
07/13/2020 Dr. Freddie Parks RE: BonnieKristin Dear Dr. Parks: Ms. Kristin Nicole was experiencing bilateral lower extremities intermittent claudication and underwent an arterial duplex study which revealed occluded bilateral femoral arteries. The patient will be brought back to undergo a ONLINE PRODUCER of the right and left femoral arteries. I want to thank you for allowing us to participate in er care and please do not hesitate to call if you have any question or concern. Sincerely, Raudel Moffett M.D. ASHLEY / PAM: [id number] /
--- NOTE | 2020-07-13 08:51 | AN ---
ANGIOGRAPHY REPORT DATE OF SERVICE: 07/13/2020 PERFORMING PHYSICIAN: Raudel Moffett MD. PROCEDURE PERFORMED: 1. An abdominal aortogram. 2. Bilateral lower extremity runoff. INDICATION: This is a 60-year-old female patient with diabetes, hypertension and dyslipidemia who was experiencing bilateral lower extremity intermittent claudication and underwent an anterior duplex study and that revealed occluded bilateral SFA. She was brought today to undergo an angiogram. COMPLICATION: None. LEVEL OF SEDATION: Moderate with sedation length of 15 minutes. PROCEDURE DESCRIPTION: After obtaining an informed consent, the patient was brought to the cardiac clinical laboratory manager. The right common femoral artery was cannulated using micropuncture technique. The micropuncture wire passed easily then I placed a 5-Colombian sheath at the right common femoral artery. Subsequently, the sheath was flushed. I did an abdominal aortogram and bilateral lower extremity runoff using 5-Colombian pigtail catheter which was initially placed at the level of the renal arteries then it was pulled into above the bifurcation of the aorta to right and left common iliac arteries. The procedure was completed without any complication. Selective peripheral angiogram. 1. The aorta appeared to be calcified with mild to moderate disease only. 2. Renal arteries: The right and left renal arteries are angiographically normal. 3. Common iliac arteries: The right common iliac artery appeared to be angiographically normal and the left common iliac artery appeared to have intermediate disease only. 4. Internal iliac arteries: Both internals are patent. 5. External iliac arteries: The right and left external iliac arteries appeared to be angiographically normal. 6. Common femoral arteries: The right common femoral artery appeared to have mild to moderate disease and the left common femoral artery also appeared to have mild to moderate disease. 7. Profunda: Both profunda are patent and large. 8. SFA: The SFA are occluded on the long segment, extends from the proximal portion and reconstitutes down by the Justino canal. 9. Popliteal: The popliteal appeared to have mild disease only. 10.Below the knee there are 2 vessel runoff below the knee bilaterally with posterior tibial and peroneal and what seems to be occluded anterior tibial arteries. CONCLUSION: 1. 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 2. Occluded bilateral superficial femoral arteries from the proximal portion all the way to the Justino canal. 3. Two-vessel runoff below the knee bilaterally with posterior tibial and peroneal. POSTPROCEDURE MANAGEMENT: 1. The patient needs to undergo a BANKING CENTER MANAGER of the right and left SFA in two separate sessions. 2. Assess the gradient across the left common iliac artery which has intermediate lesion. 3. Follow up with the patient. ASHLEY / IJN: [id number] /
[2020-07-13 17:33] VITALS: BP 134/70; PULSE 78
== END 2020-07-13 15:33 | disposition home or self-care (01) ==
LOC: CATHCVL 06:07
PROVIDERS: ATTEND Internal Medicine Interventional Cardiology
DX: E11.51 Type 2 diabetes mellitus with diabetic peripheral angiopathy without gangrene (principal); I70.213 Atherosclerosis of native arteries of extremities with intermittent claudication, bilateral legs; I70.8 Atherosclerosis of other arteries; I25.10 Atherosclerotic heart disease of native coronary artery without angina pectoris; I10 Essential (primary) hypertension; E78.5 Hyperlipidemia, unspecified; Z95.5 Presence of coronary angioplasty implant and graft; Z87.891 Personal history of nicotine dependence; Z79.82 Long term (current) use of aspirin; Z79.84 Long term (current) use of oral hypoglycemic drugs; Z79.899 Other long term (current) drug therapy
CPT/HCPCS: 36200; 75625; 75716; C1894; C1769 ×3; J2250; J2001; Q9966

== ENCOUNTER 2020-08-01 06:04 | Day surgery (SDC) | payer BC ==
[2020-07-30 16:08] VITALS: BMI 29.6
[~2020-08-01 06:04] MED LIST changes: +ALPRAZolam 0.25 MG TAB PO PRN; +ASPIRIN 325 MG TAB PO STA; -SODIUM CHLORIDE 0.9% 1,000 ML in EMPTY BAG 1 BAG IV ONE
[2020-08-01 06:46] LABS: Glucose,Whole Blood 161 mg/dL (75-99)
[2020-08-01] MEDS ORDERED: SODIUM CHLORIDE 0.9% 1,000 ML IV ONE (07:00)
[2020-08-01 07:14] LABS: Basophils % (A) 0 %; Eosinophils # (A) 0.2 k/uL (0-0.7); Eosinophils % (A) 4 %; HCT 35.6 % (34.0-46.0); HGB 12.1 gm/dL (11.4-16.0); Lymphocytes # (A) 1.2 k/uL (1.0-4.8); Lymphocytes % (A) 21 %; MCH 28.8 pg (25.0-35.0); MCHC 33.9 g/dL (31.0-37.0); Mean Platelet Volume 6.8; Monocytes # (A) 0.4 k/uL (0-1.0); Monocytes % (A) 7 %; Neutrophils # (A) 3.8 k/uL (1.3-7.7); Neutrophils % (A) 66 %; Platelet Count 252 k/uL (150-450); RBC 4.19 m/uL (3.80-5.40); RDW 13.7 % (11.5-15.5); WBC 5.7 k/uL (3.8-10.6)
[2020-08-01 07:24] LABS: African American GFR (CKD) >90 (>60 ml/min/1.73 sqM); Anion Gap 7 mmol/L; Blood Urea Nitrogen 22 mg/dL (7-17); Calcium 9.2 mg/dL (8.4-10.2); Carbon Dioxide 27 mmol/L (22-30); Chloride 106 mmol/L (98-107); Glucose 157 mg/dL (74-99); Non-African American GFR(CKD) 80 (>60 ml/min/1.73 sqM); Potassium 4.5 mmol/L (3.5-5.1); Sodium 140 mmol/L (137-145)
[2020-08-01] MEDS ORDERED: MIDAZOLAM 2 MG/2 ML VIAL IV ONE (08:55)
[2020-08-01] MEDS ORDERED: LIDOCAINE 1% INJ 10MG/ML (20 ML MDV) SQ ONE (09:03)
[2020-08-01] MEDS: fentaNYL (PF) 50 MCG/ML 2 ML AMP IV ONE ×4 (09:10→11:31)
[2020-08-01] MEDS: MIDAZOLAM 2 MG/2 ML VIAL IV ONE ×2 (09:25→10:35)
[2020-08-01] MEDS ORDERED: niCARdipine Syringe (1,000 mcg/10 mL) INTRAARTER ONE (11:33)
[2020-08-01] MEDS ORDERED: NITROGLYCERIN 1000MCG/10ML SYRINGE INTRAARTER ONE (11:33)
[2020-08-01] MEDS ORDERED: IOPAMIDOL-250 100ML BTL INTRAARTER ONE (11:39)
[2020-08-01] MEDS ORDERED: NITROGLYCERIN SL TABS 0.4 MG TAB SUBLINGUAL PRN (11:46)
[2020-08-01] MEDS ORDERED: SODIUM CHLORIDE 0.9% 1,000 ML in EMPTY BAG 1 BAG IV SCH (12:00)
[2020-08-01] MEDS ORDERED: hydrALAZINE HCL 20 MG/ML 1 ML VIAL ONE (14:48)
[2020-08-01 17:10] LABS: Glucose,Whole Blood 140 mg/dL (75-99)
--- NOTE | 2020-08-01 18:18 | LTR ---
August 01, 2020 To: Dr. Parks Re: Kristin Bonnie (62) Dear Dr. Parks: Ms. Kristin Nicole underwent successful balloon angioplasty and stenting of the left femoral artery with good angiographic results and without any complication. I want to thank you for allowing me to participate in her care. Please do not hesitate to call with any question or concern. Sincerely, Raudel Moffett M.D. ASHLEY / PAM: [id number] /
[2020-08-01] MEDS: carvediloL 3.125 MG TAB PO SCH (19:01)
[2020-08-01 20:46] LABS: Glucose,Whole Blood 197 mg/dL (75-99)
[2020-08-01] MEDS ORDERED: ATORVASTATIN 80 MG TAB PO SCH (21:00)
[2020-08-01] MEDS ORDERED: PANTOPRAZOLE 40 MG TABLET PO SCH (21:00)
[2020-08-01] MEDS: lisinopriL 20 MG TAB PO SCH (21:04)
[2020-08-01] MEDS: TICAGRELOR 90 MG TAB PO SCH (21:04)
--- NOTE | 2020-08-02 01:25 | AN ---
ANGIOGRAPHY REPORT DATE OF SERVICE: August 01, 2020. PERFORMING PHYSICIAN: Raudel Moffett MD. PROCEDURE PERFORMED: 1. Successful stenting of the left superficial femoral artery using a 3 Zilver PTX drug-coated stent with an excellent angiographic result. 2. An atherectomy of the left popliteal and left SFA using the TurboHawk device. 3. Successful balloon angioplasty of the left popliteal using 6.0 mm balloon with an excellent angiographic result. 4. Intravascular ultrasound (IVUS) of the left popliteal and left SFA. 5. Left lower extremity angiogram. 6. Selective left iliac and right iliac angiogram and right common femoral artery angiogram. INDICATION: This is a very pleasant 60-year-old female patient with coronary artery disease who was experiencing bilateral lower extremities intermittent claudication and underwent an angiogram which revealed occluded bilateral SFA and also intermediate disease involving the iliacs bilaterally. She was brought today to undergo a ORCHESTRA LEADER of the left SFA. APPROACH: Right common femoral artery. COMPLICATION: None. LEVEL OF SEDATION: Moderate with sedation length of 162 minutes. PROCEDURE DESCRIPTION: After obtaining an informed consent, the patient was brought to the cardiac lab courier. The right common femoral artery was cannulated using micropuncture technique, the micropuncture wire was passed easily and then I placed a 6-Iranian 70 cm sheath at the right common femoral artery. At that point, anticoagulation was initiated using heparin and the patient was given a total of 10,000 units of heparin at the beginning of the procedure with continuous ACT monitoring throughout the procedure. I did after that select the left SFA using 0.035 stiff Glidewire with the backup support of a 5-Iranian Omni Flush catheter. Subsequently I did advance the Omni Flush over the wire to the left common femoral artery and then I advanced the sheath over the wire and the Omni Flush all the way to the left common femoral artery. At that point, I did perform left lower extremity angiogram which revealed 2 vessel runoff below the knee with PT and peroneal with diffuse disease involving the left popliteal and occluded left SFA on long segment that extends from the ostium all the way to the Justino canal. I crossed the chronic total occlusion of the left SFA using a 0.018 bliss-tip Glidewire with the backup support of 0.018 CXI catheter. After that, I did exchange my 0.018 wire into 0.014 wire, where I did intravascular ultrasound which showed me an area diameter of 6 mm and then I found out that I was in the true lumen in the proximal and distal left SFA and I was in subintimal space in the mid left SFA. After that I did two balloon angioplasty of the left SFA using 5 mm balloon. The following angiogram showed diffuse dissection involving the left popliteal, distal, mid, and proximal left SFA as well. For the left popliteal, I was able to use a tackle device where I placed 6 tackles and I was able to see the dissection without deploying stent. For the left SFA, I deployed in the distal 7.0 x 40 and in the mid 7.0 x 40 and in the proximal 7.0 x 60 mm Zilver PTX drug-coated stent where the stent was positioned under fluoroscopic guidance. Then the stent was post-dilated using 6 mm balloon with the following angiogram showing excellent angiographic results and the procedure was completed without any complication. By the end, I did selective left iliac angiogram and right iliac angiogram just to make sure I did not lift anything because I had a hard time going up and over. The angiogram revealed intermediate lesion involving the ostial right iliac and ostial left iliac, which I am going to treat conservatively at this point. After that I did check exchange my long sheath into short sheath using 0.035 stiff Glidewire. Before I did selective right common femoral artery angiogram. The procedure was completed without any complication. POSTPROCEDURE MANAGEMENT: 1. Dual anti-platelet therapy. 2. Risk factor modifications. 3. Follow up with the patient. MMREYL / IJN: [id number] /
[2020-08-02] MEDS: carvediloL 3.125 MG TAB PO SCH (06:28)
[2020-08-02 06:33] LABS: Glucose,Whole Blood 165 mg/dL (75-99)
[2020-08-02] MEDS ORDERED: ACETAMINOPHEN TAB 325 MG TAB PO PRN (08:19)
[2020-08-02 08:59] VITALS: BP 105/62; PULSE 66; RESP 14; TEMP 98.5
[2020-08-02] MEDS ORDERED: TRIAMTERENE-HCTZ 37.5-25MG 1 EACH TAB PO SCH (09:00)
[2020-08-02] MEDS ORDERED: ASPIRIN 81 MG PO SCH (09:00)
--- NOTE | 2020-08-02 09:12 | US ---
EXAMINATION TYPE: US lower ext pseudo artery RT DATE OF EXAM: 08/02/2020 COMPARISON: NONE CLINICAL HISTORY: Pain at procedure site from radiographer cardiac catheterization 08/01. EXAM PERFORMED: Grayscale and color Doppler duplex imaging performed of the groin, post cardiac pratik ter to assess for pseudoaneurysm. SIDE PERFORMED: right Color and Waveform Doppler performed to assess for the presence of pseudoaneurysm; Is there ultrasound evidence of a pseudoaneurysm: no Is there evidence of AV shunting: no Is there a fluid collection present: no IMPRESSION: No diagnostic evidence of pseudoaneurysm
[2020-08-02] MEDS: TICAGRELOR 90 MG TAB PO SCH (09:35)
[2020-08-02] MEDS: lisinopriL 20 MG TAB PO SCH (09:35)
[2020-08-02 09:38] LABS: Basophils % (A) 0 %; Eosinophils # (A) 0.1 k/uL (0-0.7); Eosinophils % (A) 1 %; HCT 33.9 % (34.0-46.0); HGB 10.7 gm/dL (11.4-16.0); Lymphocytes # (A) 0.9 k/uL (1.0-4.8); Lymphocytes % (A) 10 %; MCH 27.5 pg (25.0-35.0); MCHC 31.7 g/dL (31.0-37.0); Mean Platelet Volume 7.1; Monocytes # (A) 0.4 k/uL (0-1.0); Monocytes % (A) 5 %; Neutrophils # (A) 7.5 k/uL (1.3-7.7); Neutrophils % (A) 84 %; Platelet Count 215 k/uL (150-450); RDW 13.8 % (11.5-15.5); WBC 8.9 k/uL (3.8-10.6)
[2020-08-02 09:47] LABS: African American GFR (CKD) >90 (>60 ml/min/1.73 sqM); Anion Gap 4 mmol/L; Calcium 8.5 mg/dL (8.4-10.2); Carbon Dioxide 26 mmol/L (22-30); Chloride 106 mmol/L (98-107); Glucose 241 mg/dL (74-99); Non-African American GFR(CKD) 81 (>60 ml/min/1.73 sqM); Sodium 136 mmol/L (137-145)
[2020-08-02 09:55] LABS: Blood Urea Nitrogen 13 mg/dL (7-17); Potassium 4.1 mmol/L (3.5-5.1)
--- NOTE | 2020-08-02 12:14 | IR ---
EXAMINATION TYPE: IR stent intravas non coronary DATE OF EXAM: 08/01/2020 COMPARISON: NONE HISTORY: Fluoroscopy time. Fluoroscopy was provided to the referring clinician.
--- NOTE | 2020-08-02 21:00 | DS ---
DISCHARGE SUMMARY DATE OF ADMISSION: 08/01/2020 DATE OF DISCHARGE: 08/02/2020 BRIEF HISTORY: This is a 60-year-old female patient with coronary artery disease and hypertension and dyslipidemia who underwent yesterday successful crossing chronic total occlusion of the left SFA along with successful angioplasty and stenting of the left SFA from right groin approach. She was seen this morning. The right groin is soft but slightly tender. I am going to obtain an ultrasound to rule out any pseudoaneurysm or DVT. She is going to be discharged on dual anti-platelet therapy and statin, and I will follow up with her next week in the office. There is no CBC or BMP this morning. Will order a CBC and BMP this morning. MMODL / IJN: [id number] /
== END 2020-08-02 12:03 | disposition home or self-care (01) ==
LOC: CATHCVL 06:04 → 3NCARDOBS 15:13 → 3SCARD 15:50 → CATHCVL 08-02 12:03
PROVIDERS: ATTEND Internal Medicine Interventional Cardiology
DX: E11.51 Type 2 diabetes mellitus with diabetic peripheral angiopathy without gangrene (principal); I70.213 Atherosclerosis of native arteries of extremities with intermittent claudication, bilateral legs; I70.92 Chronic total occlusion of artery of the extremities; I25.10 Atherosclerotic heart disease of native coronary artery without angina pectoris; I10 Essential (primary) hypertension; E78.5 Hyperlipidemia, unspecified; F17.210 Nicotine dependence, cigarettes, uncomplicated; Z79.82 Long term (current) use of aspirin; Z79.84 Long term (current) use of oral hypoglycemic drugs; Z79.02 Long term (current) use of antithrombotics/antiplatelets; Z79.899 Other long term (current) drug therapy
CPT/HCPCS: 37227; 85347 ×4; 37252; 80048 ×2; 85025 ×2; 93975; 93926; C1894; C1769 ×6; C1725 ×4; C1714; C1753; C1874 ×2; C1876; J2250; J0360; J2001; J3010; J1644; Q9966

== ENCOUNTER → 2021-05-06 | Outpatient (CLI) | payer BC ==
--- NOTE | 2021-05-09 09:48 | MM ---
Reason for exam: screening (asymptomatic). Last mammogram was performed 1 year and 10 months ago. History: Patient is postmenopausal. Stereotactic core biopsy of the left breast, August 31, 2000. Took hormonal contraceptives for 5 years. Physical Findings: A clinical breast exam by your physician is recommended on an annual basis and results should be correlated with mammographic findings. MG 3D Screening Mammo W/Cad Bilateral CC and MLO view(s) were taken. Prior study comparison: June 27, 2019, bilateral MG screening mammo w CAD. May 24, 2018, bilateral MG screening mammo w CAD. March 06, 2017, bilateral MG screening mammo w CAD. The breast tissue is heterogeneously dense. This may lower the sensitivity of mammography. Previous mammotome biopsy in the left breast. ASSESSMENT: Benign, BI-RAD 2 RECOMMENDATION: Routine screening mammogram of both breasts in 1 year.
== END | disposition home or self-care (01) ==
LOC: RADMAMWWP 14:47
PROVIDERS: ATTEND Family Medicine
DX: Z12.31 Encounter for screening mammogram for malignant neoplasm of breast (principal)
CPT/HCPCS: 77063; 77067

== ENCOUNTER 2022-01-09 10:36 | Emergency (ER) | payer BC ==
[2022-01-09 10:42] VITALS: PULSE 87; TEMP 96.3
[2022-01-09] MEDS ORDERED: SODIUM CHLORIDE 0.9% 500 ML 500 ML IV STA (10:59)
--- NOTE | 2022-01-09 11:30 | ED ---
General Adult HPI - General Chief complaint: Dizziness Stated complaint: Dizziness Time Seen by Provider: 01/09/22 10:45 Source: patient, RN notes reviewed, old records reviewed Mode of arrival: ambulatory Limitations: no limitations - History of Present Illness Initial comments: 61-year-old female presenting for evaluation of dizziness and tightness while at work this morning. She states she had several episodes of dizziness and lightheadedness. She denies central chest pain. Denies focal numbness or weakness. Denies headache. Patient states she had a gastrointestinal illness with vomiting earlier in the week. She states that yesterday she did not urinate for approximately 8 hours throughout the day. Her gastrointestinal symptoms have resolved and she believes she contracted this from her granddaughter who had a similar vomiting and diarrheal illness about 6 days ago. She denies chest pain. Denies diaphoresis. Denies significant vomiting. No fevers. - Related Data Home Medications Medication Instructions Recorded Confirmed Omeprazole [PriLOSEC] 40 mg PO HS 12/29/19 01/09/22 Triamterene-Hctz 37.5-25Mg 1 tab PO DAILY 07/11/20 01/09/22 [Maxzide 37.5-25] carvediloL [Coreg] 3.125 mg PO BID 07/11/20 01/09/22 metFORMIN HCL 500 mg PO TID 01/09/22 01/09/22 Previous Rx's Medication Instructions Recorded Aspirin EC [Ecotrin Low Dose] 81 mg PO DAILY #30 tablet. 01/02/20 Atorvastatin [Lipitor] 80 mg PO HS #30 tab 01/02/20 Nitroglycerin Sl Tabs [Nitrostat] 0.4 mg SUBLINGUAL Q5M PRN #100 tab 01/02/20 Ticagrelor [Brilinta] 90 mg PO BID #60 tab 01/02/20 lisinopriL [Zestril] 20 mg PO BID #60 tab 01/02/20 Allergies Allergy/AdvReac Type Severity Reaction Status Date / Time No Known Allergies Allergy Verified 01/09/22 11:27 Review of Systems ROS Statement: Those systems with pertinent positive or pertinent negative responses have been documented in the HPI. ROS Other: All systems not noted in ROS Statement are negative. Past Medical History Past Medical History: Coronary Artery Disease (CAD), Chest Pain / Angina, Diabetes Mellitus, Hyperlipidemia, Hypertension, Myocardial Infarction ([place]) Additional Past Medical History / Comment(s): poor circulation in [place] lower legs, varicose veins, leg pain History of Any Multi-Drug Resistant Organisms: None Reported Past Surgical History: Breast Surgery, Heart Catheterization With Stent, Hysterectomy Additional Past Surgical History / Comment(s): chip in left breast following biopsy. two cardiac stents, recent aortogram Past Anesthesia/Blood Transfusion Reactions: No Reported Reaction Date of Last Stent Placement:: 12/29/19 Past Psychological History: No Psychological Hx Reported Smoking Status: Current every day smoker Past Alcohol Use History: None Reported Past Drug Use History: None Reported - Past Family History Father Family Medical History: Myocardial Infarction ([place]) Mother Family Medical History: Cancer Brother(s) Family Medical History: Cancer Sister(s) Family Medical History: Cancer General Exam Limitations: no limitations General appearance: alert, in no apparent distress Head exam: Present: atraumatic, normocephalic Eye exam: Present: normal appearance, PERRL ENT exam: Present: mucous membranes dry Neck exam: Present: normal inspection. Absent: tenderness, meningismus Respiratory exam: Present: normal lung sounds bilaterally. Absent: respiratory distress, wheezes Cardiovascular Exam: Present: regular rate, normal rhythm GI/Abdominal exam: Present: soft. Absent: distended, tenderness, guarding Extremities exam: Present: normal inspection, normal capillary refill. Absent: pedal edema, calf tenderness Neurological exam: Present: alert, oriented X3, CN II-XII intact. Absent: motor sensory deficit Psychiatric exam: Present: normal affect, normal mood Skin exam: Present: warm, dry, intact. Absent: cyanosis, diaphoretic Course Vital Signs 01/09/22 10:37 Temperature 96.3 F L Pulse Rate 87 Respiratory 18 Rate Blood Pressure 114/62 O2 Sat by Pulse 99 Oximetry EKG Findings - EKG Comments: EKG Findings:: EKG: Sinus rhythm, rate of 72, CO interval 159, QRS duration 83, QTC 402, no ST segment elevation. Medical Decision Making - Medical Decision Making 61-year-old female with lightheadedness and likely dehydration. She appears dehydrated on exam, dry mucous membranes. She had a diarrheal and vomiting illness which began and resolved earlier this week. Workup is initiated, EKG s inus rhythm. Chest x-ray is clear. She has a normal CBC. She is mildly acidotic with a CO2 of 20 and a creatinine of 1.49 which is elevated for this patient. She has a magnesium of 1.4. Urinalysis does show 20 white cells however she has no urinary symptoms. No fever. She likely has a component of dehydration causing her symptoms. After IV fluids she is feeling better. She has no focal numbness or weakness. No central chest pain. No alarming features. She is encouraged to maintain oral hydration and will return with new or worsening symptoms. - Lab Data Result diagrams: 01/09/22 11:17 01/09/22 11:17 Lab Results 01/09/22 01/09/22 01/09/22 Range/Units 11:17 11:17 11:17 WBC 4.9 (3.8-10.6) k/uL RBC 4.07 (3.80-5.40) m/uL Hgb 11.8 (11.4-16.0) gm/dL Hct 35.1 (34.0-46.0) % MCV 86.3 (80.0-100.0) fL MCH 29.0 (25.0-35.0) pg MCHC 33.6 (31.0-37.0) g/dL RDW 13.6 (11.5-15.5) % Plt Count 224 (150-450) k/uL MPV 7.2 Neutrophils % 68 % Lymphocytes % 18 % Monocytes % 7 % Eosinophils % 3 % Basophils % 1 % Neutrophils # 3.3 (1.3-7.7) k/uL Lymphocytes # 0.9 L (1.0-4.8) k/uL Monocytes # 0.3 (0-1.0) k/uL Eosinophils # 0.2 (0-0.7) k/uL Basophils # 0.1 (0-0.2) k/uL PT 10.0 (9.0-12.0) sec INR 0.9 (<1.2) APTT 22.7 (22.0-30.0) sec Sodium (137-145) mmol/L Potassium (3.5-5.1) mmol/L Chloride (98-107) mmol/L Carbon Dioxide (22-30) mmol/L Anion Gap mmol/L BUN (7-17) mg/dL Creatinine (0.52-1.04) mg/dL Est GFR (CKD-EPI)AfAm (>60 ml/min/1.73 sqM) Est GFR (CKD-EPI)NonAf (>60 ml/min/1.73 sqM) Glucose (74-99) mg/dL Plasma Lactic Acid José (0.7-2.0) mmol/L Calcium (8.4-10.2) mg/dL Magnesium (1.6-2.3) mg/dL Total Bilirubin (0.2-1.3) mg/dL AST (14-36) U/L ALT (4-34) U/L Alkaline Phosphatase (38-126) U/L Troponin I (0.000-0.034) ng/mL Total Protein (6.3-8.2) g/dL Albumin (3.5-5.0) g/dL Urine Color Yellow Urine Appearance Cloudy H (Clear) Urine pH 5.5 (5.0-8.0) Ur Specific [place] 1.016 (1.001-1.035) Urine Protein Trace H (Negative) Urine Glucose (UA) Negative (Negative) Urine Ketones Negative (Negative) Urine Blood Negative (Negative) Urine Nitrite Negative (Negative) Urine Bilirubin Negative (Negative) Urine Urobilinogen <2.0 (<2.0) mg/dL Ur Leukocyte Esterase Moderate H (Negative) Urine WBC 20 H (0-5) /hpf Urine WBC Clumps Few H (None) /hpf Ur Squamous Epith Cells 1 (0-4) /hpf Urine Bacteria Moderate H (None) /hpf Urine Mucus Rare H (None) /hpf 01/09/22 01/09/22 01/09/22 Range/Units 11:17 11:17 11:17 WBC (3.8-10.6) k/uL RBC (3.80-5.40) m/uL Hgb (11.4-16.0) gm/dL Hct (34.0-46.0) % MCV (80.0-100.0) fL MCH (25.0-35.0) pg MCHC (31.0-37.0) g/dL RDW (11.5-15.5) % Plt Count (150-450) k/uL MPV Neutrophils % % Lymphocytes % % Monocytes % % Eosinophils % % Basophils % % Neutrophils # (1.3-7.7) k/uL Lymphocytes # (1.0-4.8) k/uL Monocytes # (0-1.0) k/uL Eosinophils # (0-0.7) k/uL Basophils # (0-0.2) k/uL PT (9.0-12.0) sec INR (<1.2) APTT (22.0-30.0) sec Sodium 137 (137-145) mmol/L Potassium 4.2 (3.5-5.1) mmol/L Chloride 106 (98-107) mmol/L Carbon Dioxide 20 L (22-30) mmol/L Anion Gap 11 mmol/L BUN 36 H (7-17) mg/dL Creatinine 1.49 H (0.52-1.04) mg/dL Est GFR (CKD-EPI)AfAm 44 (>60 ml/min/1.73 sqM) Est GFR (CKD-EPI)NonAf 38 (>60 ml/min/1.73 sqM) Glucose 160 H (74-99) mg/dL Plasma Lactic Acid José 1.9 (0.7-2.0) mmol/L Calcium 8.8 (8.4-10.2) mg/dL Magnesium 1.4 L (1.6-2.3) mg/dL Total Bilirubin 0.6 (0.2-1.3) mg/dL AST 19 (14-36) U/L ALT 11 (4-34) U/L Alkaline Phosphatase 89 (38-126) U/L Troponin I <0.012 (0.000-0.034) ng/mL Total Protein 6.7 (6.3-8.2) g/dL Albumin 3.8 (3.5-5.0) g/dL Urine Color Urine Appearance (Clear) Urine pH (5.0-8.0) Ur Specific [place] (1.001-1.035) Urine Protein (Negative) Urine Glucose (UA) (Negative) Urine Ketones (Negative) Urine Blood (Negative) Urine Nitrite (Negative) Urine Bilirubin (Negative) Urine Urobilinogen (<2.0) mg/dL Ur Leukocyte Esterase (Negative) Urine WBC (0-5) /hpf Urine WBC Clumps (None) /hpf Ur Squamous Epith Cells (0-4) /hpf Urine Bacteria (None) /hpf Urine Mucus (None) /hpf Disposition Clinical Impression: Dehydration, MAJNEET (acute kidney injury), Lightheaded Disposition: HOME SELF-CARE Condition: Good Instructions (If sedation given, give patient instructions): Dizziness (ED), Dehydration (ED) Is patient prescribed a controlled substance at d/c from ED?: No Referrals: Freddie Parks DO [Primary Care Provider] - 1-2 days Time of Disposition: 13:30
[2022-01-09 11:34] LABS: Basophils # (A) 0.1 k/uL (0-0.2); Basophils % (A) 1 %; Eosinophils # (A) 0.2 k/uL (0-0.7); Eosinophils % (A) 3 %; HCT 35.1 % (34.0-46.0); HGB 11.8 gm/dL (11.4-16.0); Lymphocytes # (A) 0.9 k/uL (1.0-4.8); Lymphocytes % (A) 18 %; MCHC 33.6 g/dL (31.0-37.0); MCV 86.3 fL (80.0-100.0); Mean Platelet Volume 7.2; Monocytes # (A) 0.3 k/uL (0-1.0); Monocytes % (A) 7 %; Neutrophils # (A) 3.3 k/uL (1.3-7.7); Neutrophils % (A) 68 %; Platelet Count 224 k/uL (150-450); RBC 4.07 m/uL (3.80-5.40); RDW 13.6 % (11.5-15.5); WBC 4.9 k/uL (3.8-10.6)
--- NOTE | 2022-01-09 11:45 | XR ---
EXAMINATION TYPE: XR chest 2V DATE OF EXAM: 01/09/2022 COMPARISON: Chest x-ray 12/29/2019 HISTORY: Weakness TECHNIQUE: Frontal and lateral views of the chest are obtained. FINDINGS: There is no focal air space opacity, pleural effusion, or pneumothorax seen. The cardiac silhouette size is within normal limits. The osseous structures are intact, there is thoracic spond ylosis. Prominent lung Volumes are noted. IMPRESSION: No acute cardiopulmonary process.
[2022-01-09 12:02] LABS: Albumin 3.8 g/dL (3.5-5.0); Calcium 8.8 mg/dL (8.4-10.2); Magnesium 1.4 mg/dL (1.6-2.3); Potassium 4.2 mmol/L (3.5-5.1); Total Bilirubin 0.6 mg/dL (0.2-1.3); Total Protein 6.7 g/dL (6.3-8.2)
[2022-01-09 12:10] LABS: Appearance,Urine Cloudy (Clear); Bacteria,Urine Moderate /hpf; Bilirubin,Urine Negative (Negative); Blood,Urine Negative (Negative); Color,Urine Yellow; Glucose,Urine (UA) Negative (Negative); Ketones,Urine Negative (Negative); Leukocyte Esterase,Urine Moderate (Negative); Mucus,Urine Rare /hpf; Nitrite,Urine Negative (Negative); PH, Urine 5.5 (5.0-8.0); Protein,Urine Trace (Negative); Specific Gravity,Urine 1.016 (1.001-1.035); Squamous Epithelial Cell,Urine 1 /hpf (0-4); Urobilinogen,Urine <2.0 mg/dL (<2.0); WBC,Urine 20 /hpf (0-5)
[2022-01-09 12:18] LABS: INR 0.9 (<1.2); Partial Thromboplastin Time 22.7 sec (22.0-30.0)
[2022-01-09] MEDS ORDERED: MAGNESIUM SULFATE-D5W PMX 1 GM in DEXTROSE/WATER 1 100ML.BAG IVPB ONE (13:00)
[2022-01-09] MEDS ORDERED: SODIUM CHLORIDE 0.9% 500 ML 500 ML IV ONE (13:00)
[2022-01-09 14:34] VITALS: BP 118/79; RESP 16
== END 2022-01-09 14:34 | disposition home or self-care (01) ==
LOC: EC 10:36
DX: N17.9 Acute kidney failure, unspecified (principal); E86.0 Dehydration; R42 Dizziness and giddiness; I10 Essential (primary) hypertension; E11.9 Type 2 diabetes mellitus without complications; I25.2 Old myocardial infarction; F17.200 Nicotine dependence, unspecified, uncomplicated
CPT/HCPCS: 99285; 96365; 36415; 93005; 80053; 83605; 83735; 84484; 85025; 85610; 85730; 81001; 87086; 87077; 87186; 71046; J3475

== ENCOUNTER 2022-08-11 06:11 | Inpatient (IN) | payer BC ==
[2022-08-11] MEDS ORDERED: SODIUM CHLORIDE 0.9% 1,000 ML IV STA (06:38)
[2022-08-11 06:47] LABS: Basophils % (A) 0 %; Eosinophils # (A) 0.1 k/uL (0-0.7); Eosinophils % (A) 1 %; HCT 36.1 % (34.0-46.0); HGB 12.1 gm/dL (11.4-16.0); Lymphocytes # (A) 0.9 k/uL (1.0-4.8); Lymphocytes % (A) 20 %; MCH 27.1 pg (25.0-35.0); MCHC 33.4 g/dL (31.0-37.0); MCV 81.1 fL (80.0-100.0); Mean Platelet Volume 7.9; Monocytes # (A) 0.2 k/uL (0-1.0); Monocytes % (A) 5 %; Neutrophils # (A) 3.3 k/uL (1.3-7.7); Neutrophils % (A) 72 %; Platelet Count 220 k/uL (150-450); RBC 4.45 m/uL (3.80-5.40); RDW 13.5 % (11.5-15.5); WBC 4.6 k/uL (3.8-10.6)
[2022-08-11 07:00] LABS: Albumin 4.2 g/dL (3.5-5.0); Calcium 8.8 mg/dL (8.4-10.2); Magnesium 1.7 mg/dL (1.6-2.3); Potassium 4.6 mmol/L (3.5-5.1); Total Bilirubin 0.7 mg/dL (0.2-1.3); Total Protein 6.7 g/dL (6.3-8.2)
[2022-08-11 07:01] LABS: INR 0.9 (<1.2); Partial Thromboplastin Time 23.9 sec (22.0-30.0); Prothrombin Time 9.8 sec (9.0-12.0)
[2022-08-11] MEDS ORDERED: HEPARIN SODIUM 1,000 UN/ML (10ML VL) IV ONE (07:29)
[2022-08-11] MEDS ORDERED: HEPARIN SODIUM 1,000 UN/ML (10ML VL) IV PRN (07:29)
[2022-08-11] MEDS ORDERED: NITROGLYCERIN SL TABS 0.4 MG TAB SUBLINGUAL PRN (07:45)
[2022-08-11] MEDS ORDERED: ASPIRIN 81 MG PO STA (07:45)
--- NOTE | 2022-08-11 07:46 | ED ---
General Adult HPI - General Chief complaint: Upper Respiratory Infection Stated complaint: MAUREEN, back pain Time Seen by Provider: 08/11/22 06:21 Source: patient, RN notes reviewed Mode of arrival: ambulatory Limitations: no limitations - History of Present Illness Initial comments: 62-year-old female presents emergency Department chief complaint of back pain, shortness breath. Patient states she had covid 19 Diagnosed 5 days ago. States she started feeling better she has had a cough but no shortness breath until last night. Patient states she has deep pain in her back. She doesn't that she's had a cardiac she's in the past which she had stents placed for Dr. Moffett. Patient also had stents in her lower extremity. Patient denies abdominal pain states nothing makes the pain feel better or worse. - Related Data Home Medications Medication Instructions Recorded Confirmed Omeprazole [PriLOSEC] 40 mg PO HS 12/29/19 08/11/22 Triamterene-Hctz 37.5-25Mg 1 tab PO DAILY 07/11/20 08/11/22 [Maxzide 37.5-25] carvediloL [Coreg] 3.125 mg PO BID 07/11/20 08/11/22 metFORMIN HCL 500 mg PO TID 01/09/22 08/11/22 Clarithromycin [Biaxin] 500 mg PO BID 08/11/22 08/11/22 Simvastatin [Zocor] 40 mg PO HS 08/11/22 08/11/22 Previous Rx's Medication Instructions Recorded Aspirin EC [Ecotrin Low Dose] 81 mg PO DAILY #30 tablet. 01/02/20 Nitroglycerin Sl Tabs [Nitrostat] 0.4 mg SUBLINGUAL Q5M PRN #100 tab 01/02/20 Ticagrelor [Brilinta] 90 mg PO BID #60 tab 01/02/20 lisinopriL [Zestril] 20 mg PO BID #60 tab 01/02/20 Allergies Allergy/AdvReac Type Severity Reaction Status Date / Time No Known Allergies Allergy Verified 08/11/22 08:54 Review of Systems ROS Statement: Those systems with pertinent positive or pertinent negative responses have been documented in the HPI. ROS Other: All systems not noted in ROS Statement are negative. Past Medical History Past Medical History: Coronary Artery Disease (CAD), Chest Pain / Angina, Diabetes Mellitus, Hyperlipidemia, Hypertension, Myocardial Infarction ([place]) Additional Past Medical History / Comment(s): poor circulation in [place] lower legs, varicose veins, leg pain History of Any Multi-Drug Resistant Organisms: None Reported Past Surgical History: Breast Surgery, Heart Catheterization With Stent, Hysterectomy Additional Past Surgical History / Comment(s): chip in left breast following biopsy. two cardiac stents, recent aortogram Past Anesthesia/Blood Transfusion Reactions: No Reported Reaction Date of Last Stent Placement:: 12/29/19 Past Psychological History: No Psychological Hx Reported Smoking Status: Current every day smoker Past Alcohol Use History: None Reported Past Drug Use History: None Reported - Past Family History Father Family Medical History: Myocardial Infarction ([place]) Mother Family Medical History: Cancer Brother(s) Family Medical History: Cancer Sister(s) Family Medical History: Cancer General Exam Limitations: no limitations General appearance: alert, in no apparent distress Head exam: Present: atraumatic, normocephalic, normal inspection Eye exam: Present: normal appearance, PERRL, EOMI. Absent: scleral icterus, conjunctival injection, periorbital swelling ENT exam: Present: normal exam, mucous membranes moist Neck exam: Present: normal inspection, full ROM. Absent: tenderness, meningismus, lymphadenopathy Respiratory exam: Present: normal lung sounds bilaterally. Absent: respiratory distress, wheezes, rales, rhonchi, stridor Cardiovascular Exam: Present: regular rate, normal rhythm, normal heart sounds. Absent: systolic murmur, diastolic murmur, rubs, gallop, clicks GI/Abdominal exam: Present: soft, normal bowel sounds. Absent: distended, tenderness, guarding, rebound, rigid Course Vital Signs 08/11/22 08/11/22 08/11/22 06:18 07:53 09:00 Temperature 98.4 F Pulse Rate 78 67 74 Respiratory 16 18 18 Rate Blood Pressure 137/87 110/81 128/74 O2 Sat by Pulse 100 97 Oximetry 08/11/22 08/11/22 08/11/22 10:28 12:46 15:00 Temperature Pulse Rate 76 59 L 70 Respiratory 18 18 18 Rate Blood Pressure 114/67 100/59 92/59 O2 Sat by Pulse 100 98 Oximetry 08/11/22 08/11/22 08/11/22 16:00 17:39 18:37 Temperature 98.5 F Pulse Rate 68 60 67 Respiratory 18 18 18 Rate Blood Pressure 90/56 106/64 124/75 O2 Sat by Pulse 98 100 97 Oximetry EKG Findings - EKG Comments: EKG Findings:: EKG performed at 6:24 sinus rhythm rate of 68 MA 158 QRS 83 qt/qtc 387/404 Medical Decision Making - Medical Decision Making 62-year-old female presented for back pain shortness breath. Patient has elevated troponin 1.05. Patient does have underlying cardiac disease. Patient be admitted for NSTEMi, cardiology evaluation, patient was started on heparin lo w-dose, case discussed with admitting internal medicine. - Lab Data Result diagrams: 08/11/22 06:35 08/11/22 06:35 Lab Results 08/11/22 08/11/22 08/11/22 Range/Units 06:35 06:35 06:35 WBC 4.6 (3.8-10.6) k/uL RBC 4.45 (3.80-5.40) m/uL Hgb 12.1 (11.4-16.0) gm/dL Hct 36.1 (34.0-46.0) % MCV 81.1 (80.0-100.0) fL MCH 27.1 (25.0-35.0) pg MCHC 33.4 (31.0-37.0) g/dL RDW 13.5 (11.5-15.5) % Plt Count 220 (150-450) k/uL MPV 7.9 Neutrophils % 72 % Lymphocytes % 20 % Monocytes % 5 % Eosinophils % 1 % Basophils % 0 % Neutrophils # 3.3 (1.3-7.7) k/uL Lymphocytes # 0.9 L (1.0-4.8) k/uL Monocytes # 0.2 (0-1.0) k/uL Eosinophils # 0.1 (0-0.7) k/uL Basophils # 0.0 (0-0.2) k/uL PT 9.8 (9.0-12.0) sec INR 0.9 (<1.2) APTT 23.9 (22.0-30.0) sec D-Dimer 0.44 (<0.60) mg/L FEU Sodium 139 (137-145) mmol/L Potassium 4.6 (3.5-5.1) mmol/L Chloride 107 (98-107) mmol/L Carbon Dioxide 20 L (22-30) mmol/L Anion Gap 12 mmol/L BUN 20 H (7-17) mg/dL Creatinine 0.90 (0.52-1.04) mg/dL Est GFR (CKD-EPI)AfAm 80 (>60 ml/min/1.73 sqM) Est GFR (CKD-EPI)NonAf 70 (>60 ml/min/1.73 sqM) Glucose 186 H (74-99) mg/dL Calcium 8.8 (8.4-10.2) mg/dL Magnesium 1.7 (1.6-2.3) mg/dL Total Bilirubin 0.7 (0.2-1.3) mg/dL AST 24 (14-36) U/L ALT 17 (4-34) U/L Alkaline Phosphatase 85 (38-126) U/L Troponin I (0.000-0.034) ng/mL NT-Pro-B Natriuret Pep pg/mL Total Protein 6.7 (6.3-8.2) g/dL Albumin 4.2 (3.5-5.0) g/dL 08/11/22 08/11/22 Range/Units 06:35 06:35 WBC (3.8-10.6) k/uL RBC (3.80-5.40) m/uL Hgb (11.4-16.0) gm/dL Hct (34.0-46.0) % MCV (80.0-100.0) fL MCH (25.0-35.0) pg MCHC (31.0-37.0) g/dL RDW (11.5-15.5) % Plt Count (150-450) k/uL MPV Neutrophils % % Lymphocytes % % Monocytes % % Eosinophils % % Basophils % % Neutrophils # (1.3-7.7) k/uL Lymphocytes # (1.0-4.8) k/uL Monocytes # (0-1.0) k/uL Eosinophils # (0-0.7) k/uL Basophils # (0-0.2) k/uL PT (9.0-12.0) sec INR (<1.2) APTT (22.0-30.0) sec D-Dimer (<0.60) mg/L FEU Sodium (137-145) mmol/L Potassium (3.5-5.1) mmol/L Chloride (98-107) mmol/L Carbon Dioxide (22-30) mmol/L Anion Gap mmol/L BUN (7-17) mg/dL Creatinine (0.52-1.04) mg/dL Est GFR (CKD-EPI)AfAm (>60 ml/min/1.73 sqM) Est GFR (CKD-EPI)NonAf (>60 ml/min/1.73 sqM) Glucose (74-99) mg/dL Calcium (8.4-10.2) mg/dL Magnesium (1.6-2.3) mg/dL Total Bilirubin (0.2-1.3) mg/dL AST (14-36) U/L ALT (4-34) U/L Alkaline Phosphatase (38-126) U/L Troponin I 1.050 H* (0.000-0.034) ng/mL NT-Pro-B Natriuret Pep 355 pg/mL Total Protein (6.3-8.2) g/dL Albumin (3.5-5.0) g/dL Critical Care Time Critical Care Time: Yes Total Critical Care Time: 35 Disposition Clinical Impression: NSTEMI (non-ST elevated myocardial infarction) Disposition: ADMITTED IP TO THIS [facility] Condition: Fair Time of Disposition: 07:45
--- NOTE | 2022-08-11 07:54 | XR ---
EXAMINATION TYPE: XR chest 2V DATE OF EXAM: 08/11/2022 7:49 AM COMPARISON: Chest radiographs from 01/09/2022. TECHNIQUE: XR chest 2V Frontal and lateral views of the chest. CLINICAL INDICATION:Female, 62 years old with history of difficulty breathing; FINDINGS: Lungs/Pleura: There is no evidence of pleural effusion, focal consolidation, or pneumothorax. Pulmonary vascularity: Unremarkable. Heart/mediastinum: Cardiomediastinal silhouette is unremarkable. Musculoskeletal: Multiple level degenerative disc disease changes seen throughout the spine. No acute osseous adenopathy. IMPRESSION: No acute cardiopulmonary disease/process. No significant change from prior exam.
[2022-08-11] MEDS: HEPARIN SOD,PORK IN 0.45% NACL 25,000 UNIT in 0.45% NACL 1 250ML.BAG IV SCH (08:00)
[2022-08-11] MEDS ORDERED: carvediloL 3.125 MG TAB PO SCH ×2 (09:00→17:30)
[2022-08-11] MEDS: ATORVASTATIN 80 MG TAB PO SCH (09:00)
[2022-08-11] MEDS ORDERED: lisinopriL 20 MG TAB PO SCH (09:00)
--- NOTE | 2022-08-11 10:15 | P.CRDCN ---
History of Present Illness History of present illness: This is a 62 year old female with a past medical history of coronary artery disease s/p PCI to proximal RCA and PDA branch of RCA on 12/2019, hypertension,dyslipidemia, type 2 diabetes, chronic nicotine dependences. Follows with Dr. Moffett. We are being consulted for NSTEMI. Patient presents to the ER with complaints of sudden onset of shortness of breath this morning. She states she had symptoms of diaphoresis, fever, cough, chills last week Thursday/ Thursday and testing positive for Covid-19 on Thursday. She states her symptoms have improved, continues to have a cough. She woke up this morning with sudden onset shortness of breath, did not improve, presented to the ER for further evaluation. She is having some upper back pain She denies any chest discomfort, palpitations, lightheadedness, dizziness, syncope or near syncope, or diaphoresis, or nausea or vomiting. She denies any symptoms of orthopnea PND. She tested positive for Covid this admission as well. Her troponin was drawn and 1.05. EKG with no acute changes. DIAGNOSTICS * EKG reveals sinus rhythm, heart rate 68, non specific STT wave abnormalities, no acute changes, prior EKG with similar findings * Telemetry tracings indicate sinus mechanism * Lexiscan stress test in the office 05/2021 revealed no evidence of any stress- induced ischemia. * Echocardiogram 12/2019 revealed an EF 5560%, mild tricuspid regurgitation * Chest xray no acute cardiopulmonary process * Laboratory reviewed, CBC unremarkable, d-dimer negative, sodium 139, potassium 4.6, BUN 20, serum creatinine 0.9, magnesium 1.7, troponin 1.05, proBNP 355, Covid 19 positive * Current home cardiac medications include Maxzide 30 7. 525mg daily, Brilinta 90 mg twice a day, simvastatin 40 mg nightly, lisinopril 20 mg twice a day, Coreg 3.125 mg twice a day, aspirin 81 mg daily * Cardiac catheterization 12/2019, revealed ostial/proximal RCA with 8890% lesion, RCA has diffuse disease distally 5060 percent, PDA branch of the range of 99.9%, PLV branch angiographically normal. Left main is angiographically normal. Left circumflex diffuse disease up to 5060%, mid LAD bifurcation of the diagonal branch appeared to have a lesion in the range of 60-70% REVIEW OF SYSTEMS At the time of my exam: CONSTITUTIONAL: Denies fever or chills. CARDIOVASCULAR: Denies chest pain, +shortness of breath, denies orthopnea, PND or palpitations. RESPIRATORY: Denies cough. GASTROINTESTINAL: Denies abdominal pain, diarrhea, constipation, nausea or vomiting. MUSCULOSKELETAL: Reports back pain NEUROLOGIC: Denies numbness, tingling, headacbe or weakness. ENDOCRINE: Denies fatigue, weight change, polydipsia or polyurina. GENITOURINARY: Denies burning, hematuria or urgency with micturation. HEMATOLOGIC: Denies history of anemia or bleeding. PHYSICAL EXAMINATION Blood pressure 120/74, heart 74, afebrile, oxygen saturation 97% room air CONSTITUTIONAL: No apparent distress. HEENT: Head is normocephalic. Pupils are equal, round. Sclerae anicteric. Mucous membranes of the mouth are moist. No JVD. No carotid bruit. CHEST EXAMINATION: Lungs are clear to auscultation. No chest wall tenderness is noted on palpation or with deep breathing. HEART EXAMINATION: Regular rate and rhythm. S1, S2 heard. No murmurs, gallops or rub. ABDOMEN: Soft, nontender. Positive bowel sounds. EXTREMITIES: 2+ peripheral pulses, no lower extremity edema and no calf ten derness. NEUROLOGIC EXAMINATION: Patient is awake, alert and oriented x3. ASSESSMENT Shortness of breath Elevated troponin, myocarditis vs NSTEMI Covid-19 infection Coronary artery disease s/p PCI to proximal RCA and PDA branch of RCA on 12/2019 Hypertension Dyslipidemia Type 2 diabetes Chronic nicotine dependence PLAN Trend troponin Repeat EKG Continue IV heparin Continue aspirin, statin, and Brilinta Obtain 2D echocardiogram and doppler study to assess cardiac structure and function. Preliminary echo read with EF 30-35%. Stop Lisinopril, start Entresto tomorrow. Increase Coreg 6.25mg BID NPO aftermidnight Further recommendations based on clinical course Nurse practitioner note has been reviewed by physician. Signing provider agrees with the documented findings, assessment, and plan of care. Past Medical History Past Medical History: Coronary Artery Disease (CAD), Chest Pain / Angina, Diabetes Mellitus, Hyperlipidemia, Hypertension, Myocardial Infarction ([place]) Additional Past Medical History / Comment(s): poor circulation in shane lower legs, varicose veins, leg pain History of Any Multi-Drug Resistant Organisms: None Reported Past Surgical History: Breast Surgery, Heart Catheterization With Stent, Hysterectomy Additional Past Surgical History / Comment(s): chip in left breast following biopsy. two cardiac stents, recent aortogram Past Anesthesia/Blood Transfusion Reactions: No Reported Reaction Date of Last Stent Placement:: 12/29/19 Past Psychological History: No Psychological Hx Reported Smoking Status: Current every day smoker Past Alcohol Use History: None Reported Past Drug Use History: None Reported - Past Family History Father Family Medical History: Myocardial Infarction ([place]) Mother Family Medical History: Cancer Brother(s) Family Medical History: Cancer Sister(s) Family Medical History: Cancer Medications and Allergies Home Medications Medication Instructions Recorded Confirmed Type Omeprazole [PriLOSEC] 40 mg PO HS 12/29/19 08/11/22 History Aspirin EC [Ecotrin Low Dose] 81 mg PO DAILY #30 tablet. 01/02/20 08/11/22 Rx Nitroglycerin Sl Tabs [Nitrostat] 0.4 mg SUBLINGUAL Q5M PRN #100 tab 01/02/20 08/11/22 Rx Ticagrelor [Brilinta] 90 mg PO BID #60 tab 01/02/20 08/11/22 Rx lisinopriL [Zestril] 20 mg PO BID #60 tab 01/02/20 08/11/22 Rx Triamterene-Hctz 37.5-25Mg 1 tab PO DAILY 07/11/20 08/11/22 History [Maxzide 37.5-25] carvediloL [Coreg] 3.125 mg PO BID 07/11/20 08/11/22 History metFORMIN HCL 500 mg PO TID 01/09/22 08/11/22 History Clarithromycin [Biaxin] 500 mg PO BID 08/11/22 08/11/22 History Simvastatin [Zocor] 40 mg PO HS 08/11/22 08/11/22 History Allergies Allergy/AdvReac Type Severity Reaction Status Date / Time No Known Allergies Allergy Verified 08/11/22 08:54 Physical Exam Vitals: Vital Signs Temp Pulse Resp BP Pulse Ox 08/11/22 07:53 67 18 110/81 08/11/22 06:18 98.4 F 78 16 137/87 100 Intake and Output 08/10/22 08/11/22 08/11/22 22:59 06:59 14:59 Other: Weight 78.018 kg Results 08/11/22 06:35 08/11/22 06:35 Cardiac Enzymes 08/11/22 08/11/22 Range/Units 06:35 06:35 AST 24 (14-36) U/L Troponin I 1.050 H* (0.000-0.034) ng/mL Coagulation 08/11/22 Range/Units 06:35 PT 9.8 (9.0-12.0) sec APTT 23.9 (22.0-30.0) sec CBC 08/11/22 Range/Units 06:35 WBC 4.6 (3.8-10.6) k/uL RBC 4.45 (3.80-5.40) m/uL Hgb 12.1 (11.4-16.0) gm/dL Hct 36.1 (34.0-46.0) % Plt Count 220 (150-450) k/uL Comprehensive Metabolic Panel 08/11/22 Range/Units 06:35 Sodium 139 (137-145) mmol/L Potassium 4.6 (3.5-5.1) mmol/L Chloride 107 (98-107) mmol/L Carbon Dioxide 20 L (22-30) mmol/L BUN 20 H (7-17) mg/dL Creatinine 0.90 (0.52-1.04) mg/dL Glucose 186 H (74-99) mg/dL Calcium 8.8 (8.4-10.2) mg/dL AST 24 (14-36) U/L ALT 17 (4-34) U/L Alkaline Phosphatase 85 (38-126) U/L Total Protein 6.7 (6.3-8.2) g/dL Albumin 4.2 (3.5-5.0) g/dL Current Medications Generic Name Dose Route Start Last Admin Trade Name Freq PRN Reason Stop Dose Admin Aspirin 325 mg 08/12/22 09:00 Aspirin 325 Mg Tab PO DAILY [facility] Atorvastatin Calcium 80 mg 08/11/22 09:00 Atorvastatin 80 Mg Tab PO DAILY [facility] Heparin Sodium (Porcine) 0 unit 08/11/22 07:29 Heparin Sodium 1,000 Un/Ml (10ml Vl) IV PER PROTOCOL PRN Low PTT Protocol Heparin Sodium/Sodium Chloride 250 mls @ 9.362 mls/hr 08/11/22 07:30 08/11/22 08:00 25,000 unit/ Sodium Chloride IV 12 units/kg/hr .Q24H [facility] 9.362 mls/hr Administration Protocol 12 UNITS/KG/HR Nitroglycerin 0.4 mg 08/11/22 07:45 Nitroglycerin Sl Tabs 0.4 Mg Tab SUBLINGUAL Q5M PRN Chest Pain Intake and Output 08/10/22 08/11/22 08/11/22 22:59 06:59 14:59 Other: Weight 78.018 kg 08/11/22 06:35 08/11/22 06:35
[2022-08-11] MEDS ORDERED: DEXTROSE 50% SYRINGE 50 ML IVP PRN (10:21)
[2022-08-11] MEDS: TICAGRELOR 90 MG TAB PO SCH ×2 (10:27→20:08)
[2022-08-11 12:45] LABS: C Reactive Protein 0.6 mg/dL (<1.0)
[2022-08-11] MEDS: INSULIN ASPART (NovoLOG) 100 UNIT/ML VIAL SQ SCH ×3 (12:46→20:09)
[2022-08-11 12:54] LABS: Glucose,Whole Blood 129 mg/dL (70-110)
[2022-08-11] MEDS: carvediloL 6.25 MG TAB PO SCH (17:41)
[2022-08-11 18:17] LABS: Glucose,Whole Blood 113 mg/dL (70-110)
[2022-08-11 20:00] LABS: Glucose,Whole Blood 203 mg/dL (70-110)
[2022-08-11] MEDS: PANTOPRAZOLE 40 MG TABLET PO SCH (20:09)
[2022-08-11] MEDS ORDERED: NON FORMULARY DRUG (Simvastatin [Zocor] 40 MG Tablet) PO SCH (21:00)
--- NOTE | 2022-08-11 23:38 | P.HPIM ---
History of Present Illness H&P Date: 08/11/22 Chief Complaint: Shortness of breath Patient is a 62-year-old female with a known history of coronary disease with stent placement x2, hypertension, hyperlipidemia, diabetes type 2, history of [place] and history of peripheral vascular disease/stent placement to lower extremities and currently everyday smoker presents to ER with complaints of shortness of breath and back pain. Patient was diagnosed with COVID-19 infection about 5 days ago. Patient was having cough and started having shortness of breath since last night.Denies any chest pain. Patient is also complaining of lower back pain. Denies any fever or chills. No nausea vomiting abdominal pain or diarrhea. Denies any dysuria or hematuria. On admission EKG showed sinus rhythm with no significant ST-T wave changes. Chest x-ray showed no acute cardiopulmonary disease/process. No significant change from prior exam. Laboratory data showed WBC 4.6 hemoglobin 12.1 and platelets 220 Lymphocytes 0.9 D-dimer 0.44 not elevated Sodium 139 potassium 4.6 chloride 107 bicarb is 20 BUN 20 and creatinine 0.9 and blood sugar is 186 Liver enzymes are not elevated Magnesium 1.7 Troponin 1.050, 1.55 and 1.630 proBNP 355 Coronavirus PCR detected. Review of Systems Constitutional: Patient denies any fever or chills . Patient does have generalized weakness. Abdomen: Patient denied any nausea or vomiting or abd. pain Cardiovascular: Patient denies any chest pain. Positive short of breath no palpitations. No leg swelling. Respiratory: Patient does have cough without sputum production and shortness of breath Neurologic: Patient denied any numbness or tingling headache. Musculoskeletal: Patient denies any complaints of joint swelling or deformity. Does have back pain. Skin: Negative Psychiatric: Negative Endocrine: No heat or cold intolerance. No recent weight gain. Genitourinary: No dysuria or hematuria. All other 14 point ROS negative except the above Past Medical History Past Medical History: Coronary Artery Disease (CAD), Chest Pain / Angina, Diabetes Mellitus, Hyperlipidemia, Hypertension, Myocardial Infarction ([place]) Additional Past Medical History / Comment(s): poor circulation in shane lower legs, varicose veins, leg pain History of Any Multi-Drug Resistant Organisms: None Reported Past Surgical History: Breast Surgery, Heart Catheterization With Stent, Hysterectomy Additional Past Surgical History / Comment(s): chip in left breast following biopsy. two cardiac stents, recent aortogram Past Anesthesia/Blood Transfusion Reactions: No Reported Reaction Date of Last Stent Placement:: 12/29/19 Past Psychological History: No Psychological Hx Reported Smoking Status: Current every day smoker Past Alcohol Use History: None Reported Past Drug Use History: None Reported - Past Family History Father Family Medical History: Myocardial Infarction ([place]) Mother Family Medical History: Cancer Brother(s) Family Medical History: Cancer Sister(s) Family Medical History: Cancer Medications and Allergies Home Medications Medication Instructions Recorded Confirmed Type Omeprazole [PriLOSEC] 40 mg PO HS 12/29/19 08/11/22 History Aspirin EC [Ecotrin Low Dose] 81 mg PO DAILY #30 tablet.dr 01/02/20 08/11/22 Rx Nitroglycerin Sl Tabs [Nitrostat] 0.4 mg SUBLINGUAL Q5M PRN #100 tab 01/02/20 08/11/22 Rx Ticagrelor [Brilinta] 90 mg PO BID #60 tab 01/02/20 08/11/22 Rx lisinopriL [Zestril] 20 mg PO BID #60 tab 01/02/20 08/11/22 Rx Triamterene-Hctz 37.5-25Mg 1 tab PO DAILY 07/11/20 08/11/22 History [Maxzide 37.5-25] carvediloL [Coreg] 3.125 mg PO BID 07/11/20 08/11/22 History metFORMIN HCL 500 mg PO TID 01/09/22 08/11/22 History Clarithromycin [Biaxin] 500 mg PO BID 08/11/22 08/11/22 History Simvastatin [Zocor] 40 mg PO HS 08/11/22 08/11/22 History Allergies Allergy/AdvReac Type Severity Reaction Status Date / Time No Known Allergies Allergy Verified 08/11/22 08:54 Physical Exam Vitals: Vital Signs Temp Pulse Resp BP Pulse Ox 08/11/22 09:00 74 18 128/74 97 08/11/22 07:53 67 18 110/81 08/11/22 06:18 98.4 F 78 16 137/87 100 Intake and Output 08/10/22 08/11/22 08/11/22 22:59 06:59 14:59 Other: Weight 78.018 kg PHYSICAL EXAMINATION: Patient is lying in the bed comfortably, no acute distress, awake alert and oriented.. HEENT: Normocephalic. Neck is supple. Pupils reactive. Nostrils clear. Oral c avity is moist. Neck reveals no JVD, carotid bruits, or thyromegaly. CHEST EXAMINATION: Trachea is central. Symmetrical expansion. Lung kohli clear to auscultation and percussion. CARDIAC: Normal S1, S2 with no gallops. No murmurs ABDOMEN: Soft. Bowel sounds present. Nontender. No organomegaly. No abdominal bruits. Extremities: reveal no edema. No clubbing or cyanosis Neurologically awake, alert, oriented x3 with well-coordinated movements. No focal deficits noted Skin: No rash or skin lesions. Psychiatric: Coperative. Nonsuicidal, Musculoskeletal: No joint swelling or deformity. Normal range of motion. Results CBC & Chem 7: 08/11/22 06:35 08/11/22 06:35 Labs: Abnormal Lab Results - Last 24 Hours (Table) 08/11/22 08/11/22 08/11/22 Range/Units 06:35 06:35 06:35 Lymphocytes # 0.9 L (1.0-4.8) k/uL Carbon Dioxide 20 L (22-30) mmol/L BUN 20 H (7-17) mg/dL Glucose 186 H (74-99) mg/dL Troponin I 1.050 H* (0.000-0.034) ng/mL Coronavirus (PCR) (Not Detectd) 08/11/22 08/11/22 Range/Units 08:05 09:04 Lymphocytes # (1.0-4.8) k/uL Carbon Dioxide (22-30) mmol/L BUN (7-17) mg/dL Glucose (74-99) mg/dL Troponin I 1.550 H* (0.000-0.034) ng/mL Coronavirus (PCR) Detected A (Not Detectd) Assessment and Plan Assessment: Acute non-ST elevated MT with elevated troponin level Acute COVID-19 infection diagnosed about 5 days ago. Patient was vaccinated. Shortness of breath and lower back pain on admission Coronary arteries with history of stent placement x2 Peripheral vascular disease with history of stents to lower extremity Hyperglycemia. Uncontrolled diabetes type 2 Hypertension Hyperlipidemia Ongoing nicotine addiction DVT prophylaxis. Patient is on heparin drip Plan: Patient will be continued on telemetry monitoring. Started on heparin drip and follow-up serial EKG and troponins. Continue with aspirin statins and Brilinta. Cardiology has seen the patient and 2D echocardiogram was ordered. Started Coreg and plan to start Entresto tomorrow. Lisinopril is on hold. Plan for cardiac cath tomorrow Follow-up inflammatory markers. Patient is not hypoxic currently. Current with insulin sliding scale and better blood sugar control. Follow-up closely. Chronic pain management. Time with Patient: Greater than 30
[2022-08-12] MEDS: MAGNESIUM SULFATE-D5W PMX 1 GM in DEXTROSE/WATER 1 100ML.BAG IVPB SCH ×2 (00:45→01:45)
[2022-08-12 06:08] LABS: Glucose,Whole Blood 171 mg/dL (70-110)
[2022-08-12 06:30] LABS: Basophils % (A) 1 %; Eosinophils # (A) 0.1 k/uL (0-0.7); Eosinophils % (A) 1 %; HCT 37.3 % (34.0-46.0); Hypochromasia Slight; Lymphocytes # (A) 0.9 k/uL (1.0-4.8); Lymphocytes % (A) 19 %; MCH 26.8 pg (25.0-35.0); MCHC 32.2 g/dL (31.0-37.0); MCV 83.2 fL (80.0-100.0); Mean Platelet Volume 8.1; Monocytes # (A) 0.3 k/uL (0-1.0); Monocytes % (A) 6 %; Neutrophils # (A) 3.6 k/uL (1.3-7.7); Neutrophils % (A) 72 %; Platelet Count 257 k/uL (150-450); RBC 4.48 m/uL (3.80-5.40); RDW 13.7 % (11.5-15.5)
[2022-08-12] MEDS: HEPARIN SOD,PORK IN 0.45% NACL 25,000 UNIT in 0.45% NACL 1 250ML.BAG IV SCH (06:48)
[2022-08-12] MEDS: INSULIN ASPART (NovoLOG) 100 UNIT/ML VIAL SQ SCH ×4 (06:48→21:33)
[2022-08-12] MEDS: carvediloL 6.25 MG TAB PO SCH ×2 (06:49→16:52)
[2022-08-12] MEDS: TICAGRELOR 90 MG TAB PO SCH ×2 (06:49→21:33)
[2022-08-12] MEDS: ATORVASTATIN 80 MG TAB PO SCH (06:49)
[2022-08-12] MEDS: ASPIRIN 81 MG PO SCH (06:49)
[2022-08-12 07:29] LABS: Calcium 8.7 mg/dL (8.4-10.2); Potassium 4.4 mmol/L (3.5-5.1)
[2022-08-12] MEDS ORDERED: TRIAMTERENE-HCTZ 37.5-25MG 1 EACH TAB PO SCH (09:00)
[2022-08-12 09:03] LABS: Chol/HDL Ratio 3.65 Ratio; VLDL Calculation 19.48 mg/dL (5.00-40.00)
[2022-08-12 10:47] LABS: Glucose,Whole Blood 165 mg/dL (70-110)
[2022-08-12] MEDS ORDERED: ALPRAZolam 0.25 MG TAB PO PRN (12:50)
[2022-08-12] MEDS ORDERED: ALPRAZolam 0.5 MG TAB PO PRN (12:50)
--- NOTE | 2022-08-12 12:57 | P.PN ---
Subjective This is a 62 year old female with a past medical history of coronary artery disease s/p PCI to proximal RCA and PDA branch of RCA on 12/2019, hyperte nsion,dyslipidemia, type 2 diabetes, chronic nicotine dependences. Follows with Dr. Moffett. We are being consulted for NSTEMI. Patient presents to the ER with complaints of sudden onset of shortness of breath this morning. She states she had symptoms of diaphoresis, fever, cough, chills last week Thursday/ Thursday and testing positive for Covid-19 on Thursday08/06/2022. She states her symptoms have improved, continues to have a cough. She woke up this morning with sudden onset shortness of breath, did not improve, presented to the ER for further evaluation. She is having some upper back pain She denies any chest discomfort, palpitations, lightheadedness, dizziness, syncope or near syncope, or diaphoresis, or nausea or vomiting. She denies any symptoms of orthopnea PND. She tested positive for Covid this admission as well. Her troponin was drawn and 1.05. EKG with no acute changes. 08/12/2022 Patient seen and examined at bedside, no acute distress. She denies any chest pain. Continues to have a slight cough and shortness of breath. No orthopnea or PND. Blood pressure 80/54, heart rate 60, afebrile, oxygen saturation 90% on room air. She denies any lightheadedness or dizziness. PHYSICAL EXAMINATION CONSTITUTIONAL: No apparent distress. HEENT: Neck Supple. No JVD. No carotid bruit. CHEST EXAMINATION: Lungs are clear to auscultation. HEART EXAMINATION: Regular rate and rhythm. S1, S2 heard. EXTREMITIES: no lower extremity edema NEUROLOGIC EXAMINATION: Patient is awake, alert and oriented x3. ASSESSMENT Shortness of breath Elevated troponin, myocarditis vs NSTEMI Cardiomyopathy, ischemic vs nonischemic Covid-19 infection Coronary artery disease s/p PCI to proximal RCA and PDA branch of RCA on 12/2019 Hypertension Dyslipidemia Type 2 diabetes Chronic nicotine dependence PLAN Start Entresto Continue Coreg Continue IV heparin Continue aspirin, statin, and Brilinta Obtain 2D echocardiogram and doppler study to assess cardiac structure and function. Preliminary echo read with EF 30-35%, awaiting final read NPO aftermidnight for cardiac catheterization with Dr. Moffett I have discussed the risks, benefits and alternative therapies for the above-mentioned procedure and for both sedation/analgesia as well as necessary blood product administration, if indicated, as they pertain to this patient. The patient has indicated understanding and acceptance of the risks and procedures discussed. Questions have been answered appropriately and she is agreeable to move forward with the above-stated procedure. Further recommendations based on clinical course Nurse practitioner note has been reviewed by physician. Signing provider agrees with the documented findings, assessment, and plan of care. Objective - Vital Signs Vital signs: Vital Signs Temp 97.1 F L 08/12/22 08:00 Pulse 60 08/12/22 08:00 Resp 15 08/12/22 08:00 BP 80/54 08/12/22 08:00 Pulse Ox 98 08/12/22 08:00 FiO2 Intake & Output 08/11/22 08/12/22 08/12/22 18:59 06:59 18:59 Intake Total 213.454 2.341 Balance 213.454 2.341 Weight 78.018 kg Intake: Intake, IV Titration 213.454 2.341 Amount Heparin Sod,Pork in 0.45% 213.454 2.341 NaCl 25,000 unit In 0.45 % NaCl 1 250ml.bag @ 12 UNITS/KG/HR 9.362 mls/hr IV .Q24H [facility] Rx#: [id number] Other: # Voids 1 - Labs CBC & Chem 7: 08/12/22 06:17 08/12/22 06:17 Labs: Abnormal Lab Results - Last 24 Hours (Table) 08/11/22 08/11/22 08/11/22 Range/Units 11:40 12:46 13:44 Lymphocytes # (1.0-4.8) k/uL APTT 58.5 H (22.0-30.0) sec Chloride (98-107) mmol/L Glucose (74-99) mg/dL POC Glucose (mg/dL) 129 H (70-110) mg/dL Hemoglobin A1c 7.0 H (0.0-6.0) % 08/11/22 08/11/22 08/12/22 Range/Units 18:07 19:57 06:06 Lymphocytes # (1.0-4.8) k/uL APTT (22.0-30.0) sec Chloride (98-107) mmol/L Glucose (74-99) mg/dL POC Glucose (mg/dL) 113 H 203 H 171 H (70-110) mg/dL Hemoglobin A1c (0.0-6.0) % 08/12/22 08/12/22 08/12/22 Range/Units 06:17 06:17 06:17 Lymphocytes # 0.9 L (1.0-4.8) k/uL APTT 52.8 H (22.0-30.0) sec Chloride 109 H (98-107) mmol/L Glucose 168 H (74-99) mg/dL POC Glucose (mg/dL) (70-110) mg/dL Hemoglobin A1c (0.0-6.0) % 08/12/22 Range/Units 10:44 Lymphocytes # (1.0-4.8) k/uL APTT (22.0-30.0) sec Chloride (98-107) mmol/L Glucose (74-99) mg/dL POC Glucose (mg/dL) 165 H (70-110) mg/dL Hemoglobin A1c (0.0-6.0) %
[2022-08-12 12:59] LABS: INR 0.9 (<1.2); Prothrombin Time 10.3 sec (9.0-12.0)
--- NOTE | 2022-08-12 14:30 | P.PN ---
Subjective Progress Note Date: 08/12/22 This is a pleasant 62-year-old female diagnosed with Covid-19 last week, presented with back pain between the scapulas on admission, accompanied by shortness of breath, with a known history of CAD, diabetes, PR, peripheral vascular disease, nicotine dependence and multiple other medical issues. Denies any chest pain, palpitations. Blood pressure soft. Denies any lightheadedness, dizziness or focal deficits. Maintaining O2 sats in the 90s on room air. Maintained on IV heparin drip, Coreg, PERRLA intact, statin, aspirin with Entresto initiated. Echo pending. Cardiac catheterization pending Objective - Vital Signs Vital signs: Vital Signs Temp 97.1 F L 08/12/22 08:00 Pulse 60 08/12/22 08:00 Resp 15 08/12/22 08:00 BP 80/54 08/12/22 08:00 Pulse Ox 98 08/12/22 08:00 FiO2 Intake & Output 08/11/22 08/12/22 08/12/22 18:59 06:59 18:59 Intake Total 213.454 2.341 Balance 213.454 2.341 Weight 78.018 kg Intake: Intake, IV Titration 213.454 2.341 Amount Heparin Sod,Pork in 0.45% 213.454 2.341 NaCl 25,000 unit In 0.45 % NaCl 1 250ml.bag @ 12 UNITS/KG/HR 9.362 mls/hr IV .Q24H [facility] Rx#: [id number] Other: # Voids 1 - Exam PHYSICAL EXAMINATION: Patient alert and oriented 3, is lying in the bed comfortably. HEENT: Normocephalic. Neck is supple. Pupils reactive. Neck reveals no JVD, carotid bruits, or thyromegaly. CHEST EXAMINATION: Trachea is central. Symmetrical expansion. Lung kohli clear to auscultation and percussion. CARDIAC: Regular S1, S2 with no gallops. No murmurs ABDOMEN: Soft. Nondistended, Bowel sounds present. Nontender. No organomegaly. Extremities: no edema. No clubbing or cyanosis, positive DP pulses Neurological: Cranial nerves II through XII grossly intact, No focal deficits noted Skin: No rash or skin lesions. Warm and dry - Labs CBC & Chem 7: 08/12/22 06:17 08/12/22 06:17 Labs: Abnormal Lab Results - Last 24 Hours (Table) 08/11/22 08/11/22 08/11/22 Range/Units 09:04 11:40 11:40 Lymphocytes # (1.0-4.8) k/uL APTT (22.0-30.0) sec Chloride (98-107) mmol/L Glucose (74-99) mg/dL POC Glucose (mg/dL) (70-110) mg/dL Hemoglobin A1c 7.0 H (0.0-6.0) % Troponin I 1.550 H* 1.630 H* (0.000-0.034) ng/mL 08/11/22 08/11/22 08/11/22 Range/Units 12:46 13:44 18:07 Lymphocytes # (1.0-4.8) k/uL APTT 58.5 H (22.0-30.0) sec Chloride (98-107) mmol/L Glucose (74-99) mg/dL POC Glucose (mg/dL) 129 H 113 H (70-110) mg/dL Hemoglobin A1c (0.0-6.0) % Troponin I (0.000-0.034) ng/mL 08/11/22 08/12/22 08/12/22 Range/Units 19:57 06:06 06:17 Lymphocytes # 0.9 L (1.0-4.8) k/uL APTT (22.0-30.0) sec Chloride (98-107) mmol/L Glucose (74-99) mg/dL POC Glucose (mg/dL) 203 H 171 H (70-110) mg/dL Hemoglobin A1c (0.0-6.0) % Troponin I (0.000-0.034) ng/mL 08/12/22 08/12/22 Range/Units 06:17 06:17 Lymphocytes # (1.0-4.8) k/uL APTT 52.8 H (22.0-30.0) sec Chloride 109 H (98-107) mmol/L Glucose 168 H (74-99) mg/dL POC Glucose (mg/dL) (70-110) mg/dL Hemoglobin A1c (0.0-6.0) % Troponin I (0.000-0.034) ng/mL Assessment and Plan Assessment: Acute non-ST elevated PR with elevated troponin level, possible myocarditis Cardiomyopathy Recent COVID-19 infection diagnosed about 5 days ago. Patient was vaccinated. Shortness of breath and lower back pain on admission Coronary arteries with history of stent placement x2 Peripheral vascular disease with history of stents to lower extremity Hyperglycemia. Uncontrolled diabetes type 2, A1c 7. Hypertension Hyperlipidemia Ongoing nicotine dependence Plan: Continue on current medication regime ,monitoring and symptomatic treatment. NPO.Anticoagulated on heparin drip, evaluated by cardiology, scheduled for cardiac catheterization today. The impression and plan of care has been dictated as directed. : I performed a history and examination of this patient, discussed the same with the dictator. I agree with the dictator's note ,documented as a scribe. Any additional findings or plans will be noted.
[2022-08-12 16:18] LABS: Glucose,Whole Blood 133 mg/dL (70-110)
[2022-08-12] MEDS: SACUBITRIL/VALSARTAN 24 MG-26 MG TABLET PO SCH ×2 (16:51→21:33)
[2022-08-12 21:25] LABS: Glucose,Whole Blood 141 mg/dL (70-110)
[2022-08-12] MEDS: PANTOPRAZOLE 40 MG TABLET PO SCH (21:33)
[2022-08-13] MEDS ORDERED: SODIUM CHLORIDE 0.9% 1,000 ML in EMPTY BAG 1 BAG IV ONE
[2022-08-13] MEDS: ATORVASTATIN 80 MG TAB PO SCH (06:14)
[2022-08-13] MEDS: ASPIRIN 81 MG PO SCH (06:14)
[2022-08-13] MEDS: TICAGRELOR 90 MG TAB PO SCH ×2 (06:14→20:52)
[2022-08-13] MEDS: SACUBITRIL/VALSARTAN 24 MG-26 MG TABLET PO SCH ×2 (06:14→20:52)
[2022-08-13] MEDS: carvediloL 6.25 MG TAB PO SCH ×2 (06:15→17:25)
[2022-08-13] MEDS ORDERED: HEPARIN SODIUM,PORCINE 2,500 UNIT in SODIUM CHLORIDE 0.9% 250 ML IRRIGATION PRN (07:00)
[2022-08-13] MEDS ORDERED: HEPARIN SODIUM,PORCINE 10,000 UNIT in SODIUM CHLORIDE 0.9% 1,000 ML IRRIGATION PRN (07:00)
[2022-08-13 07:43] LABS: Glucose,Whole Blood 171 mg/dL (70-110)
[2022-08-13] MEDS: INSULIN ASPART (NovoLOG) 100 UNIT/ML VIAL SQ SCH ×4 (08:13→20:51)
[2022-08-13] MEDS ORDERED: HEPARIN SODIUM 1,000 UN/ML (10ML VL) ONE (09:03)
[2022-08-13] MEDS ORDERED: VERAPAMIL 2.5 MG/ML 2 ML AMP ONE (09:03)
[2022-08-13] MEDS ORDERED: IV FLUID CONTINUATION 900 ML IV ONE (09:15)
[2022-08-13] MEDS ORDERED: MIDAZOLAM 2 MG/2 ML VIAL IVP ONE (09:25)
[2022-08-13] MEDS ORDERED: LIDOCAINE 1% INJ 10MG/ML (30 ML VIAL-PF) SQ ONE (09:28)
[2022-08-13] MEDS: HEPARIN SOD,PORK IN 0.45% NACL 25,000 UNIT in 0.45% NACL 1 250ML.BAG IV SCH (09:36)
[2022-08-13] MEDS ORDERED: HEPARIN SODIUM 1,000 UN/ML (10ML VL) IVP ONE (09:40)
[2022-08-13] MEDS ORDERED: ADENOSINE 90 MG in SODIUM CHLORIDE 0.9% 60 ML IVP ONE (09:56)
[2022-08-13] MEDS ORDERED: niCARdipine 25 MG/10 ML VIAL ONE (10:00)
[2022-08-13] MEDS ORDERED: MAG HYDROX/AL HYDROX/SIMETH 30 ML CUP PO PRN (10:13)
[2022-08-13] MEDS ORDERED: ZOLPIDEM 5 MG TAB PO PRN (10:13)
[2022-08-13] MEDS ORDERED: ATROPINE SULFATE 0.1 MG/ML 10ML SYRINGE IV PRN (10:13)
[2022-08-13] MEDS ORDERED: RX INFO: IV CONTRAST WAS GIVEN 1 EACH MISC MISCELLANE PRN (10:13)
[2022-08-13] MEDS ORDERED: SODIUM CHLORIDE 0.9% 1,000 ML in EMPTY BAG 1 BAG IV SCH (10:15)
--- NOTE | 2022-08-13 10:16 | P.PCN ---
Date of Procedure: 08/13/22 Operative Findings: CARDIAC CATHETERIZATION AND PERCUTANEOUS CORONARY INTERVENTION PERFORMING PHYSICIAN: Raudel Moffett MD, [facility] PROCEDURE PERFORMED: 1. Selective right and left coronary angiogram 2. Left heart catheterization 3. Successful stenting of proximal RCA using 3 5 x 15 mm Xience CHRISTIANO which with an excellent angiographic results 4. FFR of the right coronary artery 5. Selective right common femoral artery angiogram INDICATION: Acute non-ST elevation myocardial infarction 62-year-old female patient was known CAD and prior stenting of the RCA COMPLICATION: None APPROACH: Right common femoral artery LEVEL OF SEDATION: Moderate with the sedation time off 42 minutes PROCEDURE DESCRIPTION: After obtaining an informed consent the patient was brought to the cardiac research lab assistant. The right common femoral artery was cannulated using micropuncture technique, the micropuncture wire passed easily then I placed 6-Indonesian sheath. After that I did selective right and left coronary angiogram using JR4 and JL 4 catheters. Left heart catheterization was performed using 6-Indonesian pigtail catheter. After that I did an FFR and subsequently stenting of the right coronary artery. The procedure was completed without any complication SELECTIVE CORONARY ANGIOGRAM: The right coronary artery: Large caliber vessel and a dominant vessel. The proximal RCA stented. Distal to the stented segment there is an intermediate lesion appeared to be in the range of 60%. We did an FFR and that came in to be an 0.77. The RCA distally appeared to have an intermediate lesion seems to be the same as before. The PDA stented and the stent is patent Left main: Calcified was mild disease only. Bifurcates into an LCx and LAD The left circumflex: Large caliber vessel nondominant vessel. The proximal LCx is angiographically normal. Gives rise into an OM branch which has an intermediate lesion appeared to be in the range of 60% was seen mostly on the LATVIAN caudal view. The circumflex after that becomes diffusely diseased up to about 50%. The left anterior descending artery: The proximal LAD appeared to be angiographically normal. The mid LAD appears to have a tubular lesion in the range of 30-40%. The LAD in the midportion as well has a lesion distal to the diagonal bifurcation appears to be in the range of 50%. The diagonal appears to have mild disease only. HEMODYNAMICS: The LVEDP was 26 mmHg was no significant gradient across aortic valve PCI OF THE RCA: Anticoagulation was initiated using heparin. After zeroing the Doppler wire and equal lysing between the Doppler wire and the guiding catheter with did an FFR her IV adenosine infusion and that came in to be ischemic 0.77. Subsequently I did balloon angioplasty of the RCA using 3.0 x 12 mm balloon before I deployed 3.5 x 15 mm stent where the stent was positioned under fluoroscopy guidance and deployed under 20 alanis for 20 seconds. The following angiogram showed excellent angiographic results and the procedure was completed without any complication CONCLUSION: #1 Patent stent in the proximal RCA. Intermediate lesion involving the proximal RCA distal to the stented segment. FFR was performed and came in to be ischemic. Stenting of that lesion was performed #2 Intermediate lesion involving the first obtuse marginal branch of the left circumflex appeared to be in the range of 60% #3 [id number] disease involving the left anterior descending artery #4 Elevated left-sided filling pressure POSTPROCEDURE MANAGEMENT: #1 dual antiplatelet therapy. She is already on aspirin and Brilinta for 12 month #2 aggressive cholesterol control #3 follow-up with the patient
[2022-08-13] MEDS ORDERED: IOPAMIDOL-370 125ML BTL INJ ONE (10:19)
[2022-08-13 11:49] LABS: Glucose,Whole Blood 142 mg/dL (70-110)
[2022-08-13 11:51] LABS: Basophils % (A) 0 %; Eosinophils # (A) 0.1 k/uL (0-0.7); Eosinophils % (A) 2 %; HCT 33.4 % (34.0-46.0); HGB 10.6 gm/dL (11.4-16.0); Hypochromasia Slight; Lymphocytes # (A) 1.1 k/uL (1.0-4.8); Lymphocytes % (A) 28 %; MCH 26.6 pg (25.0-35.0); MCHC 31.7 g/dL (31.0-37.0); MCV 83.9 fL (80.0-100.0); Mean Platelet Volume 8.1; Monocytes # (A) 0.2 k/uL (0-1.0); Monocytes % (A) 6 %; Neutrophils # (A) 2.4 k/uL (1.3-7.7); Neutrophils % (A) 62 %; Platelet Count 239 k/uL (150-450); RBC 3.98 m/uL (3.80-5.40); RDW 14.2 % (11.5-15.5); WBC 3.9 k/uL (3.8-10.6)
--- NOTE | 2022-08-13 12:10 | P.PN ---
Subjective Progress Note Date: 08/13/22 The patient is a 62-year-old female who presented to the hospital with increased shortness of breath. The patient was found to be positive for COVID-19, as well as having elevated troponins and reduced ejection fraction. She underwent coronary angiogram today with primary director financial planning Dr. Simmons. She was found to have a flow-limiting lesion in the mid RCA as well as a 60% lesion in the AZIZA, and mild- intermediate disease in the LAD. GENERAL: Well-appearing, well-nourished and in no acute distress. NECK: Supple without JVD or thyromegaly. LUNGS: Breath sounds clear to auscultation bilaterally. Respiration equal and unlabored. No wheezes, rales or rhonchi. HEART: Regular rate and rhythm without murmurs, rubs or gallops. S1 and S2 heard. EXTREMITIES: Normal range of motion, no edema. No clubbing or cyanosis. Peripheral pulses intact and strong. VITALS: Blood pressure is 107/55, pulse 56, SpO2 98% on room air, afebrile TELEMETRY: Sinus rhythm overnight IMPRESSION: Non-ST elevated myocardial infarction Status post stenting of the mid RCA Cardiomyopathy, predominantly nonischemic Acute COVID-19 infection History of hypertension History dyslipidemia History of diabetes mellitus PLAN: Continue dual antiplatelet therapy Continue maximal medical treatment for cardiomyopathy Further recommendations based on clinical course I am dictating on behalf of Dr Inder Garcia's history/physical and assessment/plan. Objective - Vital Signs Vital signs: Vital Signs Temp 98.0 F 08/13/22 04:00 Pulse 56 L 08/13/22 04:00 Resp 18 08/13/22 04:00 BP 107/55 08/13/22 04:00 Pulse Ox 98 08/13/22 04:00 FiO2 Intake & Output 08/12/22 08/13/22 08/13/22 18:59 06:59 18:59 Intake Total 237.221 469 Balance 237.221 469 Weight 78 kg Intake: IV 74.88 469 Heparin Sod,Pork in 0.45% 74.88 NaCl 25,000 unit In 0.45 % NaCl 1 250ml.bag @ 12 UNITS/KG/HR 9.362 mls/hr IV .Q24H [facility] Rx#: [id number] Intake, IV Titration 162.341 Amount Heparin Sod,Pork in 0.45% 2.341 NaCl 25,000 unit In 0.45 % NaCl 1 250ml.bag @ 12 UNITS/KG/HR 9.362 mls/hr IV .Q24H [facility] Rx#: [id number] Sodium Chloride 0.9% 1, 160 000 ml In Empty Bag 1 bag @ 3 ML/KG/HR 234.054 mls /hr IV .Q4H17M [facility] Rx#: [id number] Other: # Voids 2 1 - Labs CBC & Chem 7: 08/13/22 11:15 08/12/22 06:17 Labs: Abnormal Lab Results - Last 24 Hours (Table) 08/12/22 08/12/22 08/13/22 Range/Units 16:16 21:23 07:42 Hgb (11.4-16.0) gm/dL Hct (34.0-46.0) % POC Glucose (mg/dL) 133 H 141 H 171 H (70-110) mg/dL 08/13/22 08/13/22 Range/Units 11:15 11:46 Hgb 10.6 L (11.4-16.0) gm/dL Hct 33.4 L (34.0-46.0) % POC Glucose (mg/dL) 142 H (70-110) mg/dL
--- NOTE | 2022-08-13 12:46 | P.PN ---
Subjective Progress Note Date: 08/13/22 This is a pleasant 62-year-old female diagnosed with Covid-19 last week, presented with back pain between the scapulas on admission, accompanied by shortness of breath, with a known history of CAD, diabetes, CT, peripheral vascular disease, nicotine dependence and multiple other medical issues. Denies any chest pain, palpitations. Blood pressure soft. Denies any lightheadedness, dizziness or focal deficits. Maintaining O2 sats in the 90s on room air. Maintained on IV heparin drip, Coreg, PERRLA intact, statin, aspirin with Entresto initiated. Echo pending. Cardiac catheterization pending 08/13/22 NPO, cardiac cath pending. Reports fluctuating back pain accompanied by shortness of breath, currently asymptomatic. Dry cough. Afebrile, normal WBC, maintaining O2 sats in the high 90s to 100% on room air. Objective - Vital Signs Vital signs: Vital Signs Temp 98.4 F 08/13/22 08:20 Pulse 50 L 08/13/22 11:30 Resp 16 08/13/22 11:30 BP 132/59 08/13/22 11:30 Pulse Ox 100 08/13/22 11:30 FiO2 Intake & Output 08/12/22 08/13/22 08/13/22 18:59 06:59 18:59 Intake Total 237.221 469 Balance 237.221 469 Weight 78 kg Intake: IV 74.88 469 Heparin Sod,Pork in 0.45% 74.88 NaCl 25,000 unit In 0.45 % NaCl 1 250ml.bag @ 12 UNITS/KG/HR 9.362 mls/hr IV .Q24H [facility] Rx#: [id number] Intake, IV Titration 162.341 Amount Heparin Sod,Pork in 0.45% 2.341 NaCl 25,000 unit In 0.45 % NaCl 1 250ml.bag @ 12 UNITS/KG/HR 9.362 mls/hr IV .Q24H [facility] Rx#: [id number] Sodium Chloride 0.9% 1, 160 000 ml In Empty Bag 1 bag @ 3 ML/KG/HR 234.054 mls /hr IV .Q4H17M [facility] Rx#: [id number] Other: # Voids 2 1 1 - Exam PHYSICAL EXAMINATION: Patient alert and oriented 3, sitting up in bed comfortably. HEENT: Normocephalic. Neck is supple. Pupils reactive. Neck reveals no JVD, carotid bruits, or thyromegaly. CHEST EXAMINATION: Trachea is central. Symmetrical expansion. Lung kohli clear to auscultation and percussion. CARDIAC: Regular S1, S2 with no gallops. No murmurs ABDOMEN: Soft. Nondistended, Bowel sounds present. Nontender. No organomegaly. Extremities: no edema. No clubbing or cyanosis, positive DP pulses Neurological: Cranial nerves II through XII grossly intact, No focal deficits noted Skin: No rash or skin lesions. Warm and dry - Labs CBC & Chem 7: 08/13/22 11:15 08/12/22 06:17 Labs: Abnormal Lab Results - Last 24 Hours (Table) 08/12/22 08/12/22 08/13/22 Range/Units 16:16 21:23 07:42 Hgb (11.4-16.0) gm/dL Hct (34.0-46.0) % APTT (22.0-30.0) sec POC Glucose (mg/dL) 133 H 141 H 171 H (70-110) mg/dL 08/13/22 08/13/22 08/13/22 Range/Units 11:15 11:15 11:46 Hgb 10.6 L (11.4-16.0) gm/dL Hct 33.4 L (34.0-46.0) % APTT 190.9 H* (22.0-30.0) sec POC Glucose (mg/dL) 142 H (70-110) mg/dL Assessment and Plan Assessment: Acute non-ST elevated CT with elevated troponin level, possible myocarditis secondary to recent Covid infection Cardiomyopathy Recent COVID-19 infection diagnosed about 5 days ago. Patient was vaccinated. Shortness of breath and lower back pain on admission Coronary arteries with history of stent placement x2 Peripheral vascular disease with history of stents to lower extremity Hyperglycemia. Uncontrolled diabetes type 2, A1c 7. Hypertension Hyperlipidemia Ongoing nicotine dependence Plan: Continue on current medication regime ,monitoring and symptomatic treatment. NPO.scheduled for cardiac catheterization today. The impression and plan of care has been dictated as directed. : I performed a history and examination of this patient, discussed the same with the dictator. I agree with the dictator's note ,documented as a scribe. Any additional findings or plans will be noted.
[2022-08-13 13:09] LABS: Calcium 8.7 mg/dL (8.4-10.2); Potassium 4.4 mmol/L (3.5-5.1)
--- NOTE | 2022-08-13 14:16 | CA ---
Transthoracic Echo Report Name: Kristin Nicole Age: 62 Gender: F : 1960 Exam Date: 08/11/2022 09:59 Exam Location: [facility] Ht (in): 64 Wt (lb): 172 Ordering Physician: Peg Jimenes Attending/Referring Phys: Ecological Technical Officer Mary Wooten, AYLA Procedure CPT: Indications: possible NSTEMI vs myocarditis. patient is covid+ Cardiac Hx: Technical Quality: Fair Contrast 1: Total Dose (mL): Contrast 2: Total Dose (mL): MEASUREMENTS (Male / Female) Normal Values 2D ECHO LV Diastolic Diameter PLAX 4.6 cm 4.2 - 5.9 / 3.9 - 5.3 cm LV Systolic Diameter PLAX 3.0 cm IVS Diastolic Thickness 1.1 cm 0.6 - 1.0 / 0.6 - 0.9 cm LVPW Diastolic Thickness 1.0 cm 0.6 - 1.0 / 0.6 - 0.9 cm LV Relative Wall Thickness 0.5 FINDINGS Left Ventricle Limited study, moderately reduced global left ventricular systolic function. Normal basal systolic function. Left ventricular ejection fraction is estimated at 30-35 %. Right Ventricle Right Atrium Left Atrium Mitral Valve Aortic Valve Tricuspid Valve Pulmonic Valve Pericardium No pericardial effusion. Aorta CONCLUSIONS Left ventricular ejection fraction 30-35% with global apical hypokinesis sparing the base consistent with Takotsubo's cardiomyopathy vs multivessel CAD. Clinical correlation recommended. Previewed by: Dr. Genaro Mccallum DO (Electronically Signed) Final Date: 11 August 2022 12:36
[2022-08-13 17:08] LABS: Glucose,Whole Blood 113 mg/dL (70-110)
[2022-08-13 20:24] LABS: Glucose,Whole Blood 202 mg/dL (70-110)
[2022-08-13] MEDS: PANTOPRAZOLE 40 MG TABLET PO SCH (20:52)
[2022-08-14 05:48] LABS: Glucose,Whole Blood 204 mg/dL (70-110)
[2022-08-14] MEDS: INSULIN ASPART (NovoLOG) 100 UNIT/ML VIAL SQ SCH ×2 (06:13→12:30)
[2022-08-14] MEDS: TICAGRELOR 90 MG TAB PO SCH (09:43)
[2022-08-14] MEDS: ATORVASTATIN 80 MG TAB PO SCH (09:43)
[2022-08-14] MEDS: carvediloL 6.25 MG TAB PO SCH (09:44)
[2022-08-14] MEDS: ASPIRIN 81 MG PO SCH (09:44)
[2022-08-14] MEDS: SACUBITRIL/VALSARTAN 24 MG-26 MG TABLET PO SCH (09:44)
[2022-08-14 10:09] LABS: Basophils % (A) 0 %; Eosinophils # (A) 0.1 k/uL (0-0.7); Eosinophils % (A) 2 %; HCT 35.7 % (34.0-46.0); HGB 11.6 gm/dL (11.4-16.0); Hypochromasia Slight; Lymphocytes # (A) 1.1 k/uL (1.0-4.8); Lymphocytes % (A) 22 %; MCH 27.3 pg (25.0-35.0); MCHC 32.6 g/dL (31.0-37.0); MCV 83.9 fL (80.0-100.0); Mean Platelet Volume 7.4; Monocytes # (A) 0.3 k/uL (0-1.0); Monocytes % (A) 6 %; Neutrophils # (A) 3.4 k/uL (1.3-7.7); Neutrophils % (A) 69 %; Platelet Count 263 k/uL (150-450); RBC 4.26 m/uL (3.80-5.40); RDW 13.9 % (11.5-15.5)
[2022-08-14 10:31] LABS: Calcium 8.5 mg/dL (8.4-10.2); Potassium 4.7 mmol/L (3.5-5.1)
--- NOTE | 2022-08-14 11:06 | P.PN ---
Subjective Progress Note Date: 08/14/22 The patient is a 62-year-old female who presented to the hospital with increased shortness of breath. The patient was found to be positive for COVID-19, as well as having elevated troponins and reduced ejection fraction. She underwent coronary angiogram today with primary business banking manager Dr. Moffett. She was found to have a flow-limiting lesion in the mid RCA as well as a 60% lesion in the AZIZA, and mild- intermediate disease in the LAD. She underwent stenting of the mid RCA. The patient was interviewed and examined sitting comfortably on the recliner chair. She states she did well overnight and has been ambulating around her room without any chest pain or dizziness. She states she is eager to be d ischarged. GENERAL: Well-appearing, well-nourished and in no acute distress. NECK: Supple without JVD or thyromegaly. LUNGS: Breath sounds clear to auscultation bilaterally. Respiration equal and unlabored. No wheezes, rales or rhonchi. HEART: Regular rate and rhythm without murmurs, rubs or gallops. S1 and S2 heard. EXTREMITIES: Normal range of motion, no edema. No clubbing or cyanosis. Periph eral pulses intact and strong. Right groin site shows no evidence of hematoma VITALS: Blood pressure is 117/70, SpO2 99% on room air, pulse 60, respiratory rate 18, temp 98.1F LAB DATA: W BC 5.0, hemoglobin 11.6, hematocrit 35.7, platelet 263, sodium 138, potassium 4.7, BUN 15, creatinine 0.97 TELEMETRY: Sinus rhythm overnight IMPRESSION: Non-ST elevated myocardial infarction Status post stenting of the mid RCA Cardiomyopathy, predominantly nonischemic Acute COVID-19 infection History of hypertension History dyslipidemia History of diabetes mellitus PLAN: Continue dual antiplatelet therapy Continue maximal medical treatment for cardiomyopathy Patient may be discharged from the cardiac standpoint I am dictating on behalf of Dr Inder Garcia's history/physical and assessment/plan. Objective - Vital Signs Vital signs: Vital Signs Temp 98.1 F 08/14/22 04:00 Pulse 50 L 08/14/22 06:18 Resp 18 08/14/22 04:00 BP 117/70 08/14/22 04:00 Pulse Ox 99 08/14/22 04:00 FiO2 Intake & Output 08/13/22 08/14/22 08/14/22 18:59 06:59 18:59 Intake Total 709 Balance 709 Intake: IV 469 Oral 240 Other: # Voids 2 1 - Labs CBC & Chem 7: 08/14/22 09:49 08/14/22 09:49 Labs: Abnormal Lab Results - Last 24 Hours (Table) 08/13/22 08/13/22 08/13/22 Range/Units 11:15 11:15 11:15 Hgb 10.6 L (11.4-16.0) gm/dL Hct 33.4 L (34.0-46.0) % APTT 190.9 H* (22.0-30.0) sec Chloride 111 H (98-107) mmol/L Carbon Dioxide 18 L (22-30) mmol/L Glucose 154 H (74-99) mg/dL POC Glucose (mg/dL) (70-110) mg/dL 08/13/22 08/13/22 08/13/22 Range/Units 11:46 17:06 20:23 Hgb (11.4-16.0) gm/dL Hct (34.0-46.0) % APTT (22.0-30.0) sec Chloride (98-107) mmol/L Carbon Dioxide (22-30) mmol/L Glucose (74-99) mg/dL POC Glucose (mg/dL) 142 H 113 H 202 H (70-110) mg/dL 08/14/22 08/14/22 Range/Units 05:47 09:49 Hgb (11.4-16.0) gm/dL Hct (34.0-46.0) % APTT (22.0-30.0) sec Chloride (98-107) mmol/L Carbon Dioxide (22-30) mmol/L Glucose 161 H (74-99) mg/dL POC Glucose (mg/dL) 204 H (70-110) mg/dL
[2022-08-14 11:18] VITALS: RESP 16
[2022-08-14 11:42] LABS: Glucose,Whole Blood 127 mg/dL (70-110)
[2022-08-14 13:18] VITALS: BMI 29.5
[2022-08-14 14:45] VITALS: BP 112/62; PULSE 56; TEMP 98.2
--- NOTE | 2022-08-16 17:02 | P.DS ---
Providers Date of admission: 08/11/22 07:23 Expected date of discharge: 08/14/22 Attending physician: Freddie Parks Consults: 08/11/22 07:46 Consult Physician Urgent Consulting Provider: Raudel Moffett Consult Reason/Comments: NSTEMI Do you want consulting provider notified?: Yes 08/13/22 10:13 Consult Physician Routine Consulting Provider: [facility] Consult Reason/Comments: Post Interventional Patient Do you want consulting provider notified?: Already Contacted Primary care physician: Freddie Parks Hospital Course: Final diagnosis Acute non-ST elevated ME with elevated troponin level, possible myocarditis secondary to recent Covid infection Post cardiac cath with stenting to the mid RCA Cardiomyopathy Recent COVID-19 infection diagnosed about 5 days ago. Patient was vaccinated. Shortness of breath and lower back pain on admission Coronary arteries with history of stent placement x2 Peripheral vascular disease with history of stents to lower extremity Hyperglycemia. Uncontrolled diabetes type 2, A1c 7. Hypertension Hyperlipidemia Ongoing nicotine dependence Discharge disposition Patient is being discharged in a stable condition with guarded prognosis to home. Patient will follow-up with Dr. Parks in the outpatient setting upon discharge. Patient is to continue current cardiac meds as mentioned below and close outpatient follow up with DR. Moffett as scheduled. Total time taken is greater than 35 minutes. Hospital course This is a 62-year-old female who was recently admitted with chest pain and shortness of breath. Cardiology following and underwent cath with stenting to the mid RCA. Patient also with covid although not symptomatic and maintained on room air. Patient feels well and has been cleared by cardiology for outpatient follow up. Encouraged smoking cessation. Currently no reports of chest pain, shortness of breath, or palpitations. Patient is afebrile. No reports of nausea or vomiting and patient is tolerating diet. Patient will be discharged home today. Physical exam: Gen: This is a 62 year old female who is awake, alert and oriented x3. well developed well nourished HEENT: Head is atraumatic, normocephalic. Pupils equal, round. Sclerae is anicteric. NECK: Supple. No JVD. No lymphadenopathy. No thyromegaly. LUNGS: Clear to auscultation. No wheezes or rhonchi. No intercostal retractions. HEART: Regular rate and rhythm. No murmur. ABDOMEN: Soft. Bowel sounds are present. No masses. No tenderness. EXTREMITIES: No pedal edema. No calf tenderness. NEUROLOGICAL: Patient is awake, alert and oriented x3. Cranial nerves 2 through 12 are grossly intact. Please refer to medication reconciliation sheet for a list of medications. The impression and plan of care has been dictated by Rachel Brooks, Nurse Practitioner as directed. Dr. Jameel MD I have performed a history and examination and MDM of this patient, discussed the same with the dictator, and agree with the dictator's assessment and plan as written ,documented as a scribe. Based on total visit time, I have performed more than 50% of the visit. Patient Condition at Discharge: Fair Plan - Discharge Summary Discharge Rx Participant: Yes New Discharge Prescriptions: New carvediloL [Coreg] 6.25 mg PO BID #180 tablet Sacubitril/Valsartan [Entresto 24 mg-26 mg Tablet] 1 each PO BID #180 tablet Atorvastatin [Lipitor] 80 mg PO DAILY #90 tab Continue Omeprazole [PriLOSEC] 40 mg PO HS Ticagrelor [Brilinta] 90 mg PO BID #60 tab Aspirin EC [Ecotrin Low Dose] 81 mg PO DAILY #30 tablet. Nitroglycerin Sl Tabs [Nitrostat] 0.4 mg SUBLINGUAL Q5M PRN #100 tab PRN Reason: Chest Pain metFORMIN HCL 500 mg PO TID Clarithromycin [Biaxin] 500 mg PO BID Discontinued carvediloL [Coreg] 3.125 mg PO BID Simvastatin [Zocor] 40 mg PO HS Discharge Medication List Omeprazole [PriLOSEC] 40 mg PO HS 12/29/19 [History] Aspirin EC [Ecotrin Low Dose] 81 mg PO DAILY #30 tablet. 01/02/20 [Rx] Nitroglycerin Sl Tabs [Nitrostat] 0.4 mg SUBLINGUAL Q5M PRN #100 tab 01/02/20 [Rx] Ticagrelor [Brilinta] 90 mg PO BID #60 tab 01/02/20 [Rx] metFORMIN HCL 500 mg PO TID 01/09/22 [History] Clarithromycin [Biaxin] 500 mg PO BID 08/11/22 [History] Atorvastatin [Lipitor] 80 mg PO DAILY #90 tab 08/14/22 [Rx] Sacubitril/Valsartan [Entresto 24 mg-26 mg Tablet] 1 each PO BID #180 tablet 08/14/22 [Rx] carvediloL [Coreg] 6.25 mg PO BID #180 tablet 08/14/22 [Rx] Follow up Appointment(s)/Referral(s): Raudel Moffett MD [STAFF PHYSICIAN] - 08/22/22 8:30 am Freddie Parks DO [Primary Care Provider] - 08/18/22 11:00 am (Appointment will be with Annalisa Nurse Practitioner. ) Patient Instructions/Handouts: Acute Coronary Syndrome (DC), Heart Catheterization (DC) Activity/Diet/Wound Care/Special Instructions: Activity Limited until follow-up Follow-up with primary care provider on discharge Follow-up with cardiology as discussed and scheduled Continue taking medications as prescribed Continue heart healthy diabetic diet Discharge Disposition: HOME SELF-CARE
== END 2022-08-14 14:07 | disposition home or self-care (01) | DRG 246 ==
LOC: EC 06:11 → 3SCARD 07:23
PROVIDERS: ADMIT Family Medicine; ATTEND Family Medicine
PROC: B2111ZZ Fluoroscopy of Multiple Coronary Arteries using Low Osmolar Contrast (ICD-10-PCS; principal; 2022-08-13 07:30)
PROC: B41F1ZZ Fluoroscopy of Right Lower Extremity Arteries using Low Osmolar Contrast (ICD-10-PCS; principal; 2022-08-13 07:30)
PROC: 4A033BC Measurement of Arterial Pressure, Coronary, Percutaneous Approach (ICD-10-PCS; principal; 2022-08-13 07:30)
PROC: 027034Z Dilation of Coronary Artery, One Artery with Drug-eluting Intraluminal Device, Percutaneous Approach (ICD-10-PCS; principal; 2022-08-13 07:30)
PROC: 4A023N7 Measurement of Cardiac Sampling and Pressure, Left Heart, Percutaneous Approach (ICD-10-PCS; principal; 2022-08-13 07:30)
DX: I21.4 Non-ST elevation (NSTEMI) myocardial infarction (principal); U07.1 COVID-19; I42.8 Other cardiomyopathies; I10 Essential (primary) hypertension; I25.10 Atherosclerotic heart disease of native coronary artery without angina pectoris; E78.5 Hyperlipidemia, unspecified; E11.51 Type 2 diabetes mellitus with diabetic peripheral angiopathy without gangrene; E11.65 Type 2 diabetes mellitus with hyperglycemia; I83.90 Asymptomatic varicose veins of unspecified lower extremity; F17.200 Nicotine dependence, unspecified, uncomplicated; Z95.5 Presence of coronary angioplasty implant and graft; Z79.84 Long term (current) use of oral hypoglycemic drugs; I25.2 Old myocardial infarction; Z79.02 Long term (current) use of antithrombotics/antiplatelets; Z79.82 Long term (current) use of aspirin; Z79.899 Other long term (current) drug therapy; Z95.820 Peripheral vascular angioplasty status with implants and grafts; Z82.49 Family history of ischemic heart disease and other diseases of the circulatory system
CPT/HCPCS: 36415; 71046; 80048; 80053; 80061; 83036; 83615; 83735; 83880; 84484; 85025; 85379; 85610; 85730; 86140; 87635; 93005; 93308; 93458; 93571; 94760; 96361; 96374; 99291

== ENCOUNTER → 2022-08-28 | Outpatient (CLI) | payer BC ==
--- NOTE | 2022-08-29 10:12 | MM ---
Reason for Exam: Screening (asymptomatic). Last mammogram was performed 1 year(s) and 3 month(s) ago. Patient History: Menarche at age 15. First Full-Term at age 17. Hysterectomy at age 36. Postmenopausal. Patient used Hormonal Contraceptives for 5 years. 08/31/2000, Stereotactic Core Biopsy on the Left side. Risk Values: Jazz 5 year model risk: 1.2%. NCI Lifetime model risk: 5.6%. Prior Study Comparison: 05/24/2018 Bilateral Screening Mammogram, [facility]. 06/27/2019 Bilateral Screening Mammogram, [facility]. 05/06/2021 Bilateral Screening Mammogram, [facility]. Tissue Density: There are scattered fibroglandular densities. Findings: Analyzed By CAD. Biopsy clip in the left breast. There is no suspicious group of microcalcifications or new suspicious mass in either breast. Overall Assessment: Negative, BI-RAD 1 Management: Screening Mammogram of both breasts in 1 year. A clinical breast exam by your physician is recommended on an annual basis and results should be correlated with mammographic findings. [facility] will attempt to contact patient to return for supplemental views and ultrasound if indicated. Electronically signed and approved by: Dwayne Jaimes DO
== END | disposition home or self-care (01) ==
LOC: RADMAMWWP 15:03
PROVIDERS: ATTEND Family Medicine
DX: Z12.31 Encounter for screening mammogram for malignant neoplasm of breast (principal)
CPT/HCPCS: 77063; 77067

== ENCOUNTER 2022-11-12 19:11 | Emergency (ER) | payer BC ==
[2022-11-12 19:40] VITALS: RESP 16; TEMP 98
[2022-11-12 20:05] LABS: Basophils % (A) 1 %; Eosinophils # (A) 0.2 k/uL (0-0.7); Eosinophils % (A) 3 %; HCT 33.8 % (34.0-46.0); HGB 10.9 gm/dL (11.4-16.0); Lymphocytes # (A) 1.5 k/uL (1.0-4.8); Lymphocytes % (A) 27 %; MCH 25.7 pg (25.0-35.0); MCHC 32.4 g/dL (31.0-37.0); MCV 79.3 fL (80.0-100.0); Mean Platelet Volume 7.2; Monocytes # (A) 0.3 k/uL (0-1.0); Monocytes % (A) 6 %; Neutrophils # (A) 3.3 k/uL (1.3-7.7); Neutrophils % (A) 61 %; Platelet Count 220 k/uL (150-450); RBC 4.26 m/uL (3.80-5.40); RDW 14.8 % (11.5-15.5); WBC 5.4 k/uL (3.8-10.6)
[2022-11-12 20:21] LABS: Albumin 3.8 g/dL (3.5-5.0); Calcium 8.2 mg/dL (8.4-10.2); Potassium 3.9 mmol/L (3.5-5.1); Total Bilirubin 0.3 mg/dL (0.2-1.3); Total Protein 6.3 g/dL (6.3-8.2)
[2022-11-12 21:20] VITALS: BP 160/81; PULSE 60
--- NOTE | 2022-11-12 21:35 | ED ---
Recheck HPI - General Chief Complaint: Recheck/Abnormal Lab/Rx Stated Complaint: hypertension Time Seen by Provider: 11/12/22 21:33 Source: patient, RN notes reviewed, old records reviewed Mode of arrival: ambulatory Limitations: no limitations - History of Present Illness Initial Comments: This is a 62-year-old female to the emergency department for evaluation. Patient presents today for evaluation of severely elevated blood pressure at home recent again new blood pressure cuff and blood pressures been severely elevated to 50s over 150s at home. Patient has no other complaints no chest pain shortness of breath headache or abdominal pain MD Complaint: other (Elevated blood pressure) -: hour(s) Returns Today for: other (Asymptomatic) Symptoms Since Prior Visit: no new symptoms Associated Symptoms: none Treatments Prior to Arrival: other (0) - Related Data Home Medications Medication Instructions Recorded Confirmed Omeprazole [PriLOSEC] 40 mg PO HS 12/29/19 08/11/22 metFORMIN HCL 500 mg PO TID 01/09/22 08/11/22 Clarithromycin [Biaxin] 500 mg PO BID 08/11/22 08/11/22 Previous Rx's Medication Instructions Recorded Aspirin EC [Ecotrin Low Dose] 81 mg PO DAILY #30 tablet. 01/02/20 Nitroglycerin Sl Tabs [Nitrostat] 0.4 mg SUBLINGUAL Q5M PRN #100 tab 01/02/20 Ticagrelor [Brilinta] 90 mg PO BID #60 tab 01/02/20 Atorvastatin [Lipitor] 80 mg PO DAILY #90 tab 08/14/22 Sacubitril/Valsartan [Entresto 24 1 each PO BID #180 tablet 08/14/22 mg-26 mg Tablet] carvediloL [Coreg] 6.25 mg PO BID #180 tablet 08/14/22 Allergies Allergy/AdvReac Type Severity Reaction Status Date / Time No Known Allergies Allergy Verified 11/12/22 19:39 Review of Systems ROS Statement: Those systems with pertinent positive or pertinent negative responses have been documented in the HPI. ROS Other: All systems not noted in ROS Statement are negative. Past Medical History Past Medical History: Coronary Artery Disease (CAD), Chest Pain / Angina, Diabetes Mellitus, Hyperlipidemia, Hypertension, Myocardial Infarction ([place]) Additional Past Medical History / Comment(s): poor circulation in shane lower legs, varicose veins, leg pain Last Myocardial Infarction Date:: unknown History of Any Multi-Drug Resistant Organisms: None Reported Past Surgical History: Breast Surgery, Heart Catheterization With Stent, Hysterectomy Additional Past Surgical History / Comment(s): chip in left breast following biopsy. two cardiac stents, recent aortogram Past Anesthesia/Blood Transfusion Reactions: No Reported Reaction Date of Last Stent Placement:: 12/29/19 Past Psychological History: No Psychological Hx Reported Smoking Status: Current every day smoker Past Alcohol Use History: None Reported Past Drug Use History: None Reported - Past Family History Father Family Medical History: Myocardial Infarction ([place]) Mother Family Medical History: Cancer Brother(s) Family Medical History: Cancer Sister(s) Family Medical History: Cancer General Exam General appearance: alert, in no apparent distress, anxious Head exam: Present: atraumatic, normocephalic, normal inspection Eye exam: Present: normal appearance, PERRL, EOMI. Absent: scleral icterus, conjunctival injection, periorbital swelling ENT exam: Present: normal exam, mucous membranes moist Neck exam: Present: normal inspection. Absent: tenderness, meningismus, lymph adenopathy Respiratory exam: Present: normal lung sounds bilaterally. Absent: respiratory distress, wheezes, rales, rhonchi, stridor Cardiovascular Exam: Present: regular rate, normal rhythm, normal heart sounds. Absent: systolic murmur, diastolic murmur, rubs, gallop, clicks GI/Abdominal exam: Present: soft, normal bowel sounds. Absent: distended, tenderness, guarding, rebound, rigid Extremities exam: Present: normal inspection, full ROM, normal capillary refill. Absent: tenderness, pedal edema, joint swelling, calf tenderness Back exam: Present: normal inspection Neurological exam: Present: alert, oriented X3, CN II-XII intact Psychiatric exam: Present: normal affect, normal mood Skin exam: Present: warm, dry, intact, normal color. Absent: rash Course Vital Signs 11/12/22 11/12/22 19:37 21:18 Temperature 98.0 F Pulse Rate 66 60 Respiratory 16 16 Rate Blood Pressure 170/77 160/81 O2 Sat by Pulse 98 100 Oximetry - Reevaluation(s) Reevaluation #1: 11/12/22 22:05 Medical record is reviewed Reevaluation #2: 11/12/22 22:05 Patient informed of results and questions answered Reevaluation #3: 11/12/22 22:05 Patient remains a symptomatic throughout ER stay Reevaluation #4: 11/12/22 22:06 Was pt. sent in by a medical professional or institution? @ -no Did you speak to anyone other than the patient for history? @ -no Did you review nursing and triage notes? @ -agree Were old charts reviewed? @ -no Differential Diagnosis? @ -no EKG interpreted by me (3pts min.)? @ -[none] X-rays interpreted by me (1pt min.)? @ -[none] CT interpreted by me (1pt min.)? @ -[none] U/S interpreted by me (1pt. min.)? @ -[none] What testing was considered but not performed? (CT, X-rays, U/S, labs)? Why? @ no What meds were considered but not given? Why? @ -[none] Did you discuss the management of the patient with other professionals? @ -no Did you reconcile home meds? @ -[none] Was smoking cessation discussed for >3mins.? @ -[none] Was critical care preformed (if so, how long)? @ -[none] Were there social determinants of health that impacted care today? How? (Homelessness, low income, unemployed, alcoholism, drug addiction, transportation, low edu. Level, literacy, decrease access to med. care, correction, rehab)? @ -no Was there de-escalation of care discussed even if they declined? (Discuss DNR or withdrawal of care, Hospice)? @ -no What co-morbidities impacted this encounter? (DM, HTN, Smoking, COPD, CAD, Cancer, CVA, Hep., AIDS, mental health diagnosis, sleep apnea, morbid obesity)? @ -no Was patient admitted / discharged? @ -dc Undiagnosed new problem with uncertain prognosis? @ -[none] Drug Therapy requiring intensive monitoring for toxicity (Heparin, Nitro, Insulin, Cardizem)? @ -[none] Were any procedures done? @ -[none] Diagnosis/symptom? @ -[default] Acute, or Chronic, or Acute on Chronic? @ -[default] Uncomplicated (without systemic symptoms) or Complicated (systemic symptoms)? @ -[default] Side effects of treatment? @ -[none] Exacerbation, Progression, or Severe Exacerbation] @ -[no] Poses a threat to life or bodily function? @ -[no] Medical Decision Making - Lab Data Result diagrams: 11/12/22 19:44 11/12/22 19:44 Lab Results 11/12/22 11/12/22 11/12/22 Range/Units 19:44 19:44 19:44 WBC 5.4 (3.8-10.6) k/uL RBC 4.26 (3.80-5.40) m/uL Hgb 10.9 L (11.4-16.0) gm/dL Hct 33.8 L (34.0-46.0) % MCV 79.3 L (80.0-100.0) fL MCH 25.7 (25.0-35.0) pg MCHC 32.4 (31.0-37.0) g/dL RDW 14.8 (11.5-15.5) % Plt Count 220 (150-450) k/uL MPV 7.2 Neutrophils % 61 % Lymphocytes % 27 % Monocytes % 6 % Eosinophils % 3 % Basophils % 1 % Neutrophils # 3.3 (1.3-7.7) k/uL Lymphocytes # 1.5 (1.0-4.8) k/uL Monocytes # 0.3 (0-1.0) k/uL Eosinophils # 0.2 (0-0.7) k/uL Basophils # 0.0 (0-0.2) k/uL Sodium 137 (137-145) mmol/L Potassium 3.9 (3.5-5.1) mmol/L Chloride 106 (98-107) mmol/L Carbon Dioxide 26 (22-30) mmol/L Anion Gap 5 mmol/L BUN 20 H (7-17) mg/dL Creatinine 0.94 (0.52-1.04) mg/dL Est GFR (CKD-EPI)AfAm 76 (>60 ml/min/1.73 sqM) Est GFR (CKD-EPI)NonAf 66 (>60 ml/min/1.73 sqM) Glucose 129 H (74-99) mg/dL Calcium 8.2 L (8.4-10.2) mg/dL Total Bilirubin 0.3 (0.2-1.3) mg/dL AST 17 (14-36) U/L ALT 14 (4-34) U/L Alkaline Phosphatase 111 (38-126) U/L Troponin I <0.012 (0.000-0.034) ng/mL Total Protein 6.3 (6.3-8.2) g/dL Albumin 3.8 (3.5-5.0) g/dL - EKG Data -: EKG Interpreted by Me (EKG is bradycardia 57 ND 133 QRS 77 QTc 416) Disposition Clinical Impression: Hypertension Disposition: HOME SELF-CARE Condition: Good Instructions (If sedation given, give patient instructions): Hypertension (ED) Is patient prescribed a controlled substance at d/c from ED?: No Referrals: Freddie Parks DO [Primary Care Provider] - 1-2 days Time of Disposition: 22:05
== END 2022-11-12 22:08 | disposition home or self-care (01) ==
LOC: EC 19:11
DX: I10 Essential (primary) hypertension (principal); E11.9 Type 2 diabetes mellitus without complications; E78.5 Hyperlipidemia, unspecified; I25.10 Atherosclerotic heart disease of native coronary artery without angina pectoris; I25.2 Old myocardial infarction; F17.200 Nicotine dependence, unspecified, uncomplicated; Z79.82 Long term (current) use of aspirin; Z79.84 Long term (current) use of oral hypoglycemic drugs; Z79.899 Other long term (current) drug therapy
CPT/HCPCS: 36415; 80053; 84484; 85025; 93005; 99283

== ENCOUNTER → 2023-07-20 | Outpatient (CLI) | payer BC ==
--- NOTE | 2023-07-20 12:28 | XR ---
EXAMINATION TYPE: XR ankle complete RT, XR foot complete RT DATE OF EXAM: 07/20/2023 11:50 AM CLINICAL INDICATION:Female, 63 years old with history of M25.571 PAIN IN RIGHT ANKLE AND JOINTS OF RI GHT FO; [facility] COMPARISON: None TECHNIQUE: The right foot and ankle was imaged in frontal, lateral and oblique projections. FINDINGS: There is no evidence of acute osseous pathology. The joint spaces are well-preserved without evidenc e of subluxation or dislocation. Kager's fat pad is intact. Mild soft tissue swelling around the ankl e. No radiopaque foreign bodies are identified. Lucency near the tip tibial plafond and could be on i mage degenerative basis. Multifocal joint space narrowing osteophyte formation. Calcaneal Achilles en thesophyte formation. IMPRESSION: 1. No evidence of acute fracture. 2. Subcutaneous swelling around the ankle likely secondary to underlying soft tissue injury. 3. Lucency at the tibial plafond and could be is subchondral cystic change. Consider MRI ankle for co mplete evaluation. 3. Mild multifocal osteoarthrosis changes throughout the joints of the foot.
== END | disposition home or self-care (01) ==
LOC: RADXRMAIN 11:35
PROVIDERS: ATTEND Nurse Practitioner Family
DX: M19.071 Primary osteoarthritis, right ankle and foot (principal)

== ENCOUNTER 2023-08-05 18:24 | Emergency (ER) | payer BC ==
[2023-08-05 18:36] VITALS: TEMP 98.9
[2023-08-05 19:23] LABS: Basophils % (A) 1 %; Eosinophils # (A) 0.2 k/uL (0-0.7); Eosinophils % (A) 5 %; HCT 34.5 % (34.0-46.0); HGB 11.1 gm/dL (11.4-16.0); Lymphocytes # (A) 1.3 k/uL (1.0-4.8); Lymphocytes % (A) 28 %; MCH 27.1 pg (25.0-35.0); MCHC 32.1 g/dL (31.0-37.0); MCV 84.6 fL (80.0-100.0); Mean Platelet Volume 7.8; Monocytes # (A) 0.3 k/uL (0-1.0); Monocytes % (A) 7 %; Neutrophils # (A) 2.8 k/uL (1.3-7.7); Neutrophils % (A) 57 %; Platelet Count 213 k/uL (150-450); RBC 4.07 m/uL (3.80-5.40); RDW 14.5 % (11.5-15.5); WBC 4.9 k/uL (3.8-10.6)
[2023-08-05 19:32] LABS: INR 0.9 (<1.2); Partial Thromboplastin Time 24.1 sec (22.0-30.0); Prothrombin Time 9.5 sec (9.0-12.0)
[2023-08-05 19:36] LABS: ALT 17 U/L (4-34); AST 24 U/L (14-36); African American GFR (CKD) >90 (>60 ml/min/1.73 sqM); Albumin 3.7 g/dL (3.5-5.0); Alkaline Phosphatase 80 U/L (38-126); Anion Gap 11 mmol/L; Blood Urea Nitrogen 20 mg/dL (7-17); Calcium 8.7 mg/dL (8.4-10.2); Carbon Dioxide 23 mmol/L (22-30); Chloride 105 mmol/L (98-107); Glucose 94 mg/dL (74-99); Non-African American GFR(CKD) 81 (>60 ml/min/1.73 sqM); Potassium 4.1 mmol/L (3.5-5.1); Sodium 139 mmol/L (137-145); Total Bilirubin 0.4 mg/dL (0.2-1.3); Total Protein 6.4 g/dL (6.3-8.2)
--- NOTE | 2023-08-05 20:09 | XR ---
EXAMINATION TYPE: XR chest 2V DATE OF EXAM: 08/05/2023 7:53 PM COMPARISON: Chest radiographs from 08/11/2022 TECHNIQUE: XR chest 2V Frontal and lateral views of the chest. CLINICAL INDICATION:Female, 63 years old with history of difficulty breathing; FINDINGS: Lungs/Pleura: There is no evidence of pleural effusion, focal consolidation, or pneumothorax. Pulmonary vascularity: Unremarkable. Heart/mediastinum: Cardiomediastinal silhouette is unremarkable. Atherosclerotic calcifications are seen in the aorta. Musculoskeletal: Multiple level degenerative disc disease changes seen throughout the spine. IMPRESSION: No acute cardiopulmonary disease/process.
--- NOTE | 2023-08-05 21:16 | ED ---
SOB HPI - General Chief Complaint: Shortness of Breath Stated Complaint: sob Time Seen by Provider: 08/05/23 21:13 Source: patient Mode of arrival: ambulatory Limitations: no limitations - History of Present Illness Initial Comments: This patient is a 63-year-old woman who presents to have evaluation of cough and shortness of breath. She states the symptoms had started on Thursday. She did speak with her primary physician who phoned in prescription of erythromycin which she started but she states has not really made much difference. She has taken 2 days of this. The patient has not noted fever or chills. The cough is nonproductive. There is no chest pain. She has not noted change in urination or bowel movements. No leg pain or swelling MD Complaint: shortness of breath, cough Onset/Timin -: days(s) Severity scale (1-10): 0 Consistency: constant Improves With: nothing Worsens With: nothing Associated Symptoms: denies other symptoms Treatments Prior to Arrival: none - Related Data Home Oxygen Therapy: No Home Medications Medication Instructions Recorded Confirmed Omeprazole [PriLOSEC] 40 mg PO HS 12/29/19 08/05/23 metFORMIN HCL 500 mg PO TID 01/09/22 08/05/23 Clarithromycin [Biaxin] 500 mg PO BID 08/11/22 08/05/23 Atorvastatin [Lipitor] 80 mg PO DIRECTED 08/05/23 08/05/23 Sacubitril/Valsartan [Entresto 24 1 tab PO BID 08/05/23 08/05/23 mg-26 mg Tablet] carvediloL [Coreg] 12.5 mg PO BID 08/05/23 08/05/23 Previous Rx's Medication Instructions Recorded Aspirin EC [Ecotrin Low Dose] 81 mg PO DAILY #30 tablet. 01/02/20 Nitroglycerin Sl Tabs [Nitrostat] 0.4 mg SUBLINGUAL Q5M PRN #100 tab 01/02/20 Ticagrelor [Brilinta] 90 mg PO BID #60 tab 01/02/20 Albuterol Inhaler [Ventolin Hfa 1 - 2 puff INHALATION Q6HR PRN #1 08/05/23 Inhaler] each predniSONE 60 mg PO DAILY #30 tab 08/05/23 Allergies Allergy/AdvReac Type Severity Reaction Status Date / Time No Known Allergies Allergy Verified 10/04/23 22:12 Review of Systems ROS Statement: Those systems with pertinent positive or pertinent negative responses have been documented in the HPI. ROS Other: All systems not noted in ROS Statement are negative. Constitutional: Denies: fever, chills ENT: Denies: throat pain, congestion Respiratory: Reports: cough, dyspnea. Denies: hemoptysis Cardiovascular: Denies: chest pain, palpitations, edema, syncope Gastrointestinal: Denies: abdominal pain, nausea, vomiting, diarrhea, constipation, melena, hematochezia Genitourinary: Denies: dysuria, hematuria Musculoskeletal: Denies: back pain Skin: Denies: rash Neurological: Denies: headache, weakness Past Medical History Past Medical History: Coronary Artery Disease (CAD), Chest Pain / Angina, Diabetes Mellitus, Hyperlipidemia, Hypertension, Myocardial Infarction ([place]) Additional Past Medical History / Comment(s): poor circulation in shane lower le gs, varicose veins, leg pain Last Myocardial Infarction Date:: unknown History of Any Multi-Drug Resistant Organisms: None Reported Past Surgical History: Breast Surgery, Heart Catheterization With Stent, Hysterectomy Additional Past Surgical History / Comment(s): chip in left breast following biopsy. two cardiac stents, recent aortogram Past Anesthesia/Blood Transfusion Reactions: No Reported Reaction Date of Last Stent Placement:: 12/29/19 Past Psychological History: No Psychological Hx Reported Smoking Status: Current every day smoker Past Alcohol Use History: None Reported Past Drug Use History: None Reported - Past Family History Father Family Medical History: Myocardial Infarction ([place]) Mother Family Medical History: Cancer Brother(s) Family Medical History: Cancer Sister(s) Family Medical History: Cancer General Exam Limitations: no limitations General appearance: alert, in no apparent distress Head exam: Present: atraumatic, normocephalic Eye exam: Present: normal appearance. Absent: scleral icterus, conjunctival injection Neck exam: Present: normal inspection Respiratory exam: Present: wheezes. Absent: respiratory distress, rales, rhonchi, stridor, accessory muscle use Cardiovascular Exam: Present: regular rate, normal rhythm, normal heart sounds. Absent: systolic murmur, diastolic murmur, rubs, gallop GI/Abdominal exam: Present: soft. Absent: distended, tenderness, guarding, rebound, rigid, mass Extremities exam: Present: normal inspection, normal capillary refill. Absent: pedal edema, calf tenderness Back exam: Present: normal inspection. Absent: CVA tenderness (R), CVA tenderness (L) Neurological exam: Present: alert Skin exam: Present: warm, dry, intact, normal color. Absent: rash Course Vital Signs 08/05/23 08/05/23 08/05/23 18:30 21:00 21:44 Temperature 98.9 F Pulse Rate 62 56 L 75 Respiratory 18 18 Rate Blood Pressure 148/71 129/65 O2 Sat by Pulse 98 97 Oximetry 08/05/23 08/05/23 08/05/23 22:00 22:02 23:00 Temperature Pulse Rate 57 L 64 57 L Respiratory 20 18 Rate Blood Pressure 146/64 139/71 O2 Sat by Pulse 100 97 Oximetry 08/05/23 23:14 Temperature Pulse Rate 57 L Respiratory 20 Rate Blood Pressure 148/62 O2 Sat by Pulse 97 Oximetry Medical Decision Making - Medical Decision Making The patient had chest x-ray which I interpreted as negative for acute infiltrate, pneumothorax, congestive heart failure Was pt. sent in by a medical professional or institution (LEIGH Tom, TRANSITIONS MANAGER RN, urgent care, hospital, or prison...) When possible be specific @ -[No] Did you speak to anyone other than the patient for history (EMS, parent, family, police, friend...)? What history was obtained from this source @ -[No] Did you review nursing and triage notes (agree or disagree)? Why? @ -[I reviewed and agree with nursing and triage notes] Were old charts reviewed (outside hosp., previous admission, EMS record, old EKG, old radiological studies, urgent care reports/EKG's, prison records)? Report findings @ -[No old charts were reviewed] Differential Diagnosis (chest pain, altered mental status, abdominal pain women, abdominal pain men, vaginal bleeding, weakness, fever, dyspnea, syncope, headache, dizziness, GI bleed, back pain, seizure, CVA, palpatations, mental health, musculoskeletal)? @ -[Differential Dyspnea: Coronary syndrome, arrhythmia, tamponade, asthma, COPD, pulmonary embolism, pneumonia, pneumothorax, pulmonary effusion, anaphylaxis, diabetic ketoacidosis, flailed chest, pulmonary contusion, diaphragmatic rupture, anemia, ne uromuscular, this is not meant to be an all-inclusive list. EKG interpreted by me (3pts min.). @ -[I interpreted As above] X-rays interpreted by me (1pt min.). @ -[I interpreted as above CT interpreted by me (1pt min.). @ -[None done] U/S interpreted by me (1pt. min.). @ -[None done] What testing was considered but not performed or refused? (CT, X-rays, U/S, labs)? Why? @ -[None] What meds were considered but not given or refused? Why? @ -[None] Did you discuss the management of the patient with other professionals (professionals i.e. DrHill, PA, TRANSITIONS MANAGER RN, lab, RT, psych nurse, social work job titles, data support analyst, teacher, chief operating officer, caser in)? Give summary @ -[No] Was smoking cessation discussed for >3mins.? @ -[No] Was critical care preformed (if so, how long)? @ -[No] Were there social determinants of health that impacted care today? How? (Homelessness, low income, unemployed, alcoholism, drug addiction, transportation, low edu. Level, literacy, decrease access to med. care, [facility], rehab)? @ -[No] Was there de-escalation of care discussed even if they declined (Discuss DNR or withdrawal of care, Hospice)? DNR status @ -[No] What co-morbidities impacted this encounter? (DM, HTN, Smoking, COPD, CAD, Cancer, CVA, ARF, Chemo, Hep., AIDS, mental health diagnosis, sleep apnea, morbid obesity)? @ -[None] Was patient admitted / discharged? Hospital course, mention meds given and route, prescriptions, significant lab abnormalities, going to OR and other pertinent info. @ -[The patient was feeling better after nebulized medications. We discussed the test results. Discussed further care for bronchitis, Patient discharged with close follow-up. We discussed return parameters. Undiagnosed new problem with uncertain prognosis? @ -[No] Drug Therapy requiring intensive monitoring for toxicity (Heparin, Nitro, Insulin, Cardizem)? @ -[No] Were any procedures done? @ -[No] Diagnosis/symptom? @ -[Acute bronchitis Acute, or Chronic, or Acute on Chronic? @ -[Acute Uncomplicated (without systemic symptoms) or Complicated (systemic symptoms)? @ -[default] Side effects of treatment? @ -[No] Exacerbation, Progression, or Severe Exacerbation? @ -[No] Poses a threat to life or bodily function? How? (Chest pain, [place], [place], pneumonia, PE, COPD, DKA, ARF, appy, cholecystitis, CVA, Diverticulitis, Homicidal, Suicidal, threat to staff... and all critical care pts) @ -[No] - Lab Data Result diagrams: 08/05/23 19:07 08/05/23 19:07 Lab Results 08/05/23 08/05/23 08/05/23 Range/Units 18:37 19:07 19:07 WBC 4.9 (3.8-10.6) k/uL RBC 4.07 (3.80-5.40) m/uL Hgb 11.1 L (11.4-16.0) gm/dL Hct 34.5 (34.0-46.0) % MCV 84.6 (80.0-100.0) fL MCH 27.1 (25.0-35.0) pg MCHC 32.1 (31.0-37.0) g/dL RDW 14.5 (11.5-15.5) % Plt Count 213 (150-450) k/uL MPV 7.8 Neutrophils % 57 % Lymphocytes % 28 % Monocytes % 7 % Eosinophils % 5 % Basophils % 1 % Neutrophils # 2.8 (1.3-7.7) k/uL Lymphocytes # 1.3 (1.0-4.8) k/uL Monocytes # 0.3 (0-1.0) k/uL Eosinophils # 0.2 (0-0.7) k/uL Basophils # 0.0 (0-0.2) k/uL PT 9.5 (9.0-12.0) sec INR 0.9 (<1.2) APTT 24.1 (22.0-30.0) sec Sodium (137-145) mmol/L Potassium (3.5-5.1) mmol/L Chloride (98-107) mmol/L Carbon Dioxide (22-30) mmol/L Anion Gap mmol/L BUN (7-17) mg/dL Creatinine (0.52-1.04) mg/dL Est GFR (CKD-EPI)AfAm (>60 ml/min/1.73 sqM) Est GFR (CKD-EPI)NonAf (>60 ml/min/1.73 sqM) Glucose (74-99) mg/dL Calcium (8.4-10.2) mg/dL Total Bilirubin (0.2-1.3) mg/dL AST (14-36) U/L ALT (4-34) U/L Alkaline Phosphatase (38-126) U/L Troponin I (0.000-0.034) ng/mL Total Protein (6.3-8.2) g/dL Albumin (3.5-5.0) g/dL Influenza Type A (PCR) Not Detected (Not Detectd) Influenza Type B (PCR) Not Detected (Not Detectd) RSV (PCR) Not Detected (Not Detectd) SARS-CoV-2 (PCR) Not Detected (Not Detectd) 08/05/23 08/05/23 Range/Units 19:07 19:07 WBC (3.8-10.6) k/uL RBC (3.80-5.40) m/uL Hgb (11.4-16.0) gm/dL Hct (34.0-46.0) % MCV (80.0-100.0) fL MCH (25.0-35.0) pg MCHC (31.0-37.0) g/dL RDW (11.5-15.5) % Plt Count (150-450) k/uL MPV Neutrophils % % Lymphocytes % % Monocytes % % Eosinophils % % Basophils % % Neutrophils # (1.3-7.7) k/uL Lymphocytes # (1.0-4.8) k/uL Monocytes # (0-1.0) k/uL Eosinophils # (0-0.7) k/uL Basophils # (0-0.2) k/uL PT (9.0-12.0) sec INR (<1.2) APTT (22.0-30.0) sec Sodium 139 (137-145) mmol/L Potassium 4.1 (3.5-5.1) mmol/L Chloride 105 (98-107) mmol/L Carbon Dioxide 23 (22-30) mmol/L Anion Gap 11 mmol/L BUN 20 H (7-17) mg/dL Creatinine 0.79 (0.52-1.04) mg/dL Est GFR (CKD-EPI)AfAm >90 (>60 ml/min/1.73 sqM) Est GFR (CKD-EPI)NonAf 81 (>60 ml/min/1.73 sqM) Glucose 94 (74-99) mg/dL Calcium 8.7 (8.4-10.2) mg/dL Total Bilirubin 0.4 (0.2-1.3) mg/dL AST 24 (14-36) U/L ALT 17 (4-34) U/L Alkaline Phosphatase 80 (38-126) U/L Troponin I <0.012 (0.000-0.034) ng/mL Total Protein 6.4 (6.3-8.2) g/dL Albumin 3.7 (3.5-5.0) g/dL Influenza Type A (PCR) (Not Detectd) Influenza Type B (PCR) (Not Detectd) RSV (PCR) (Not Detectd) SARS-CoV-2 (PCR) (Not Detectd) - EKG Data -: EKG Interpreted by Hi EKG shows normal: sinus rhythm (With a supraventricular premature complexes), axis (Normal), intervals (Normal), QRS complexes (Low voltage QRS complex, there is RSR prime pattern suggestive of incomplete right bundle branch block), ST-T waves (Normal) Rate: normal (Rate 64 bpm) Disposition Clinical Impression: Acute bronchitis Disposition: HOME SELF-CARE Condition: Good Instructions (If sedation given, give patient instructions): Acute Bronchitis (ED) Prescriptions: predniSONE 60 mg PO DAILY #30 tab Albuterol Inhaler [Ventolin Hfa Inhaler] 1 - 2 puff INHALATION Q6HR PRN #1 each PRN Reason: Wheezing Is patient prescribed a controlled substance at d/c from ED?: No Referrals: Freddie Parks DO [Primary Care Provider] - 1-2 days
[2023-08-05] MEDS ORDERED: ALBUTEROL NEBULIZED 2.5 MG/3 ML INHALATION STA (21:24)
[2023-08-05] MEDS ORDERED: IPRATROPIUM-ALBUTEROL 3 ML NEB INHALATION STA (21:24)
[2023-08-05] MEDS ORDERED: predniSONE 20 MG TAB PO STA (21:24)
[2023-08-05 23:19] VITALS: BP 148/62; PULSE 57; RESP 20
== END 2023-08-05 23:21 | disposition home or self-care (01) ==
LOC: EC 18:24
DX: J20.9 Acute bronchitis, unspecified (principal); E11.9 Type 2 diabetes mellitus without complications; I10 Essential (primary) hypertension; I25.10 Atherosclerotic heart disease of native coronary artery without angina pectoris; I25.2 Old myocardial infarction; E78.5 Hyperlipidemia, unspecified; F17.200 Nicotine dependence, unspecified, uncomplicated; Z20.822 Contact with and (suspected) exposure to COVID-19; Z79.84 Long term (current) use of oral hypoglycemic drugs; Z79.899 Other long term (current) drug therapy; Z95.5 Presence of coronary angioplasty implant and graft
CPT/HCPCS: 36415; 94640; 93005; 80053; 84484; 85025; 85610; 85730; 87636; 71046; 99285; J7512

== ENCOUNTER → 2024-01-21 | Outpatient (CLI) | payer BC ==
--- NOTE | 2024-01-22 10:43 | MM ---
Reason for Exam: Screening (asymptomatic). Last mammogram was performed 1 year(s) and 5 month(s) ago. Patient History: Menarche at age 15. First Full-Term at age 17. Hysterectomy at age 36. Postmenopausal. Patient used Hormonal Contraceptives for 5 years. 08/31/2000, Stereotactic Core Biopsy on the Left side. Risk Values: Jazz 5 year model risk: 1.2%. NCI Lifetime model risk: 5.4%. Prior Study Comparison: 06/27/2019 Bilateral Screening Mammogram, [facility]. 05/06/2021 Bilateral Screening Mammogram, [facility]. 08/28/2022 Bilateral MG 3D screening mammo w/cad, [facility]. Tissue Density: The breasts are heterogeneously dense, which may obscure small masses. Findings: Analyzed By CAD. There is no suspicious group of microcalcifications or new suspicious mass in either breast. Benign calcifications. Surgical clip in the left breast. Overall Assessment: Benign, BI-RAD 2 Management: Screening Mammogram of both breasts in 1 year. . Patient should continue monthly self-breast exams. A clinical breast exam by your physician is recommended on an annual basis. This exam should not preclude additional follow-up of suspicious palpable abnormalities. Note on Jazz scores and lifetime risk: 1. A Jazz score greater than 3% is considered moderate risk. If this is the case, consider specialist referral to assess eligibility for a risk reducing agent. 2. If overall lifetime risk for the development of breast cancer is 20% or higher, the patient may qualify for future screening with alternating mammogram and breast MRI. Electronically signed and approved by: Ismael Mclain M.D. Radiologis
== END | disposition home or self-care (01) ==
LOC: RADMAMWWP 14:50
PROVIDERS: ATTEND Family Medicine
DX: Z12.31 Encounter for screening mammogram for malignant neoplasm of breast (principal); Z78.0 Asymptomatic menopausal state
CPT/HCPCS: 77063; 77067

== ENCOUNTER → 2024-07-08 | Outpatient (CLI) | payer BC ==
[2024-07-08 17:12] LABS: ALT 12 U/L (8-44); AST 14 U/L (13-35); LDL Cholesterol,Calculated 80.2 mg/dL (0.0-131.0); VLDL Calculation 12.76 mg/dL (5.00-40.00)
== END | disposition home or self-care (01) ==
LOC: LABWHC1 10:26
PROVIDERS: ATTEND Internal Medicine Interventional Cardiology
DX: E78.2 Mixed hyperlipidemia (principal)
CPT/HCPCS: 36415; 80061; 84450; 84460